=== PATIENT | female | born 1950 | race Caucasian/White ===

== ENCOUNTER → 2021-04-23 | Outpatient (CLI) | payer MEDICARE ==
[2021-04-23 12:07] LABS: INR 0.96
[2021-04-23 12:29] LABS: ALBUMIN 3.4 GM/DL (3.2-5.2); ALT/SGPT 61 U/L (12-78); BILIRUBIN,DIRECT < 0.1 MG/DL (0.0-0.2); BILIRUBIN,TOTAL 0.2 MG/DL (0.2-1.0); IRON (FE) 53 UG/DL (50-170); PERCENT SATURATION 13.8 % (13.2-45.0); TOTAL IRON BINDING CAPACITY 383 UG/DL (250-450); TOTAL PROTEIN 7.7 GM/DL (6.4-8.2)
[2021-04-23 12:50] LABS: HEPATITIS B SURFACE ANTIGEN NEGATIVE (NEGATIVE)
[2021-04-23 13:18] LABS: HEPATITIS B CORE ANTIBODY IGM NEGATIVE (NEGATIVE)
[2021-04-23 13:20] LABS: HEPATITIS A ANTIBODY IGM NEGATIVE (NEGATIVE)
[2021-04-26 16:08] LABS: ANTI DOUBLE STRAND-DNA AB <1 IU/mL (0-9); ANTI-MITOCHONDRIAL ANTIBODY <20.0 Units (0.0-20.0); ANTINUCLEAR ANTIBODIES DIRECT Positive (Negative); CERULOPLASMIN 28.9 mg/dL (19.0-39.0); CYTOPLASMIC NEUTROP AB ANCA-C <1:20 titer (Neg:<1:20); LIVER-KIDNEY MICROSOMAL ABY <20.1 Units (0.0-20.0); PERINUCLEAR AB ANCA-P <1:20 titer (Neg:<1:20); RNP ANTIBODIES <0.2 AI (0.0-0.9); SJOGREN'S ANTI SS-A 7.4 AI (0.0-0.9); SJOGREN'S ANTI SS-B <0.2 AI (0.0-0.9); SMITH ANTIBODIES <0.2 AI (0.0-0.9)
== END ==
LOC: M LAB 11:04
PROVIDERS: ATTEND Internal Medicine Gastroenterology
DX: R10.31 Right lower quadrant pain (principal); R94.5 Abnormal results of liver function studies

== ENCOUNTER → 2021-07-26 | Outpatient (CLI) | payer MEDICARE ==
[~2021-07-26] MED LIST: ATOR40TA75 PO; CALC600T61 PO; CLON-412 PO; COQ-100C5 PO; CVS2500C PO; D31000TA2 PO; EUTH50TA PO; EVEN10003 PO; FAMO20TA PO; FLAX1CAP5 PO; LETR2.5T2 PO; OMEP40CA4 PO; OSTE5TAB PO; VENL75CA2 PO; calcium mag zinc PO; selenium
== END ==
LOC: M LABSMTC 09:24
PROVIDERS: ATTEND Anesthesiology
DX: Z01.818 Encounter for other preprocedural examination (principal)

== ENCOUNTER 2021-07-31 11:11 | Day surgery (SDC) | payer MEDICARE ==
[~2021-07-31] VITALS: Ht 162.6 cm; Wt 96.8 kg
[~2021-07-31 11:11] MED LIST changes: +NS 1,000 ML IV ONE
--- OUTSIDE RECORDS SUMMARY | 2021-07-31 11:20 | CCD | Continuity of Care Document ---
Author Author Lina FUCHS [facility] Organization Unknown Address [address] [place] [address] Phone [phone] Care Team Providers Care Poultry Dresser Name Role Phone Verónica LeungM [phone] Problems Active Problems Provider Date Bursitis Christine Fuchs D[facility] Onset: 12/16/2019 Osteoarthritis Yuriy Holm Onset: 05/13/2018 Acquired deformity of limb Yuriy Holm Onset: 05/2018 Pain in limb Yuriy Holm Onset: 05/13/2018 Social History Type Date Description Comments Sex Unknown Tobacco Use Start: Unknown Never Smoked Cigarettes Tobacco Use Start: Unknown Never Smoked Cigars Tobacco Use Start: Unknown Never Smoked A Pipe Smoking Status Reviewed: 06/25/21 Never Smoked A Pipe Tobacco Use Start: Unknown Never Used Smokeless Tobacco ETOH Use Denies alcohol use Tobacco Use Start: Unknown Patient has never smoked Allergies, Adverse Reactions, Alerts Description No Known Drug Allergies Medications Active Medications SIG Qnty Indications Ordering Provide r Date Venlafaxine HCL ER 75mg Caps ER 24HR Verónica Leung Levothyroxine Sodium 88mcg Tablets Verónica Leung Omeprazole 40mg Capsules Verónica Rodriguez Clonidine HCL 0.1mg Tablets Verónica Leung Simvastatin 10mg Tablets Unknown Atorvastatin Calcium 40mg Tablets Nabil Palm, Famotidine 20mg Tablets Verónica Leung Lactulose 10GM/15ML Solution Ignacio Gonzáles MD Immunizations Description No Information Available Vital Signs Date Vital Result Comment 09/22/2020 10:22am Weight 205.00 lb Weight 92.988 kg Height 63.5 inches 5'3.50" BMI (Body Mass Index) 35.7 kg/m2 BSA (Body Surface Area) 1.97 m2 05/13/2018 9:46am Weight 200.00 lb Weight 90.720 kg Height 64 inches 5'4" BMI (Body Mass Index) 34.3 kg/m2 BSA (Body Surface Area) 1.96 m2 Results Description No Information Available Procedures Description No Information Available Medical Devices Description No Information Available Encounters Description No Information Available Assessments Description No Information Available Plan of Treatment No Information Available Functional Status Description No Information Available Mental Status Description No Information Available Referrals Description No Information Available
--- OUTSIDE RECORDS SUMMARY | 2021-07-31 11:20 | CCD | Continuity of Care Document ---
Author Author [facility] Organization Unknown Address [address] [place] [address] [place] [address] Phone [phone] Problems Description No Information Available Social History Type Date Description Comments Sex Unknown Allergies and adverse reactions Description No Information Available Medications Description No Information Available Immunizations Description No Information Available Vital Signs Description No Information Available Results Description No Information Available Procedures Description No Information Available Medical Devices Description No Information Available Encounters Description No Information Available Assessments Description No Information Available Plan of Treatment No Information Available Functional Status Description No Information Available Mental Status Description No Information Available Referrals Description No Information Available
--- OUTSIDE RECORDS SUMMARY | 2021-07-31 11:20 | CCD | Continuity of Care Document ---
Author Author Lina BOND PA Organization Unknown Address [address] [place] [id number] Phone [phone] Problems Description No Information Available Social History Type Date Description Comments Sex Unknown Allergies and adverse reactions Description No Information Available Medications Description No Information Available Immunizations Description No Information Available Vital Signs Description No Information Available Results Description No Information Available Procedures Description No Information Available Medical Devices Description No Information Available Encounters Description No Information Available Assessments Date Code Description Provider 07/25/2021 Z20.828 Contact with and ([place] spected) exposure to other viral communicable diseases AUDRA Funk Plan of Treatment No Information Available Functional Status Description No Information Available Mental Status Description No Information Available Referrals Description No Information Available
--- OUTSIDE RECORDS SUMMARY | 2021-07-31 11:20 | CCD ---
Continuity of Care Document (CCD) Created on: 07/25/2021 Lina Morejon External Reference #: [id number] : [id number] Sex: Female Author Author [facility] Organization Unknown Address [address] [place] [address] [place] [address] Phone [phone] Problems Description No Information Available Social History [...]
--- OUTSIDE RECORDS SUMMARY | 2021-07-31 11:22 | CCD ---
Author Author [facility] Organization [facility] Address Unknown Phone Unavailable Care Team Providers Care Winch Stripper Name Role Phone Laith KING SHORTHAND REPORTER-FIRE SUPPORT MAN-C Unavailable Unava ilable KOPIDLANSKYLaith SHORTHAND REPORTER-FIRE SUPPORT MAN-C Unavailable Unava ilable KOPIDLANSKYLaith APRN-FIRE SUPPORT MAN-C Unavailable Unava ilable KOPIDLANSKYLaith APRN-FIRE SUPPORT MAN-C Unavailable Unava ilable KOPIDLANSKYLaith APRN-FIRE SUPPORT MAN-C Unavailable Unava ilable KOPIDLANSKYLaith APRN-FIRE SUPPORT MAN-C Unavailable Unava ilable KOPIDLANSKYLaith APRN-FIRE SUPPORT MAN-C Unavailable Unava ilable KOPIDLANSKYLaith APRN-FIRE SUPPORT MAN-C Unavailable Unava ilable KOPIDLANSKYLaith APRN-FIRE SUPPORT MAN-C Unavailable Unava ilable KOPIDLANSKYLaith SHORTHAND REPORTER-FIRE SUPPORT MAN-C Unavailable Unava ilable KOPIDLANSKY, Laith DAVIES APRN-FIRE SUPPORT MAN-C Unavailable Unava ilable KOPIDLANSKY, Laith DAVIES APRN-FIRE SUPPORT MAN-C Unavailable Unava ilable KOPIDLANSKY, Laith DAVIES APRN-FIRE SUPPORT MAN-C Unavailable Unava ilable KOPIDLANSKY, Laith DAVIES APRN-FIRE SUPPORT MAN-C Unavailable Unava ilable KOPIDLANSKY, Laith DAVIES APRN-FIRE SUPPORT MAN-C Unavailable Unava ilable KOPIDLANSKY, Laith DAVIES APRN-FIRE SUPPORT MAN-C Unavailable Unava ilable KOPIDLANSKY, Laith DAVIES APRN-FIRE SUPPORT MAN-C Unavailable Unava ilable KOPIDLANSKY, Laith DAVIES APRN-FIRE SUPPORT MAN-C Unavailable Unava ilable KOPIDLANSKY, Laith DAVIES APRN-FIRE SUPPORT MAN-C Unavailable Unava ilable KOPIDLANSKY, Laith DAVIES APRN-FIRE SUPPORT MAN-C Unavailable Unava ilable KOPIDLANSKY, Laith DAVIES APRN-FIRE SUPPORT MAN-C Unavailable Unava ilable KOPIDLANSKY, Laith DAVIES APRN-FIRE SUPPORT MAN-C Unavailable Unava ilable KOPIDLANSKY, Laith DAVIES APRN-FIRE SUPPORT MAN-C Unavailable Unava ilable KOPIDLANSKY, Laith DAVIES APRN-FIRE SUPPORT MAN-C Unavailable Unava ilable KOPIDLANSKY, Laith DAVIES APRN-FIRE SUPPORT MAN-C Unavailable Unava ilable KOPIDLANSKY, Laith DAVIES APRN-FIRE SUPPORT MAN-C Unavailable Unava ilable KOPIDLANSKY, Laith DAVIES APRN-FIRE SUPPORT MAN-C Unavailable Unava ilable KOPIDLANSKY, Laith DAVIES APRN-FIRE SUPPORT MAN-C Unavailable Unava ilable KOPIDLANSKY, Laith DAVIES APRN-FIRE SUPPORT MAN-C Unavailable Unava ilable KOPIDLANSKY, Laith DAVIES APRN-FIRE SUPPORT MAN-C Unavailable Unava ilable KOPIDLANSKY, Laith DAVIES APRN-FIRE SUPPORT MAN-C Unavailable Unava ilable KOPIDLANSKY, Laith DAVIES APRN-FIRE SUPPORT MAN-C Unavailable Unava ilable KOPIDLANSKY, Laith DAVIES APRN-FIRE SUPPORT MAN-C Unavailable Unava ilable Adiel Leung Unavailable Unavailable Xochitl, A Verónica PA Unavailable Unavailable Xochitl, A Verónica PA Unavailable Unavailable Xochitl, A Verónica PA Unavailable Unavailable Xochitl, A Verónica PA Unavailable Unavailable Xochitl, A Verónica PA Unavailable Unavailable Xochitl, A Verónica PA Unavailable Unavailable Xochitl, A Verónica PA Unavailable Unavailable Xochitl, A Verónica PA Unavailable Unavailable Xochitl, A Verónica PA Unavailable Unavailable Xochitl, A Verónica PA Unavailable Unavailable Xochitl, A Verónica PA Unavailable Unavailable Xochitl, A Verónica PA Unavailable Unavailable Xochitl, A Verónica PA Unavailable Unavailable Xochitl, A Verónica PA Unavailable Unavailable Xochitl, A Verónica PA Unavailable Unavailable Xochitl, A Verónica PA Unavailable Unavailable Xochitl, A Verónica PA Unavailable Unavailable Xochitl, A Verónica PA Unavailable Unavailable Xochitl, A Verónica PA Unavailable Unavailable Xochitl, A Verónica PA Unavailable Unavailable Xochitl, A Verónica PA Unavailable Unavailable Xochitl, A Verónica PA Unavailable Unavailable Xochitl, A Verónica PA Unavailable Unavailable Xochitl, A Verónica PA Unavailable Unavailable Xochitl, A Verónica PA Unavailable Unavailable Xochitl, A Verónica PA Unavailable Unavailable Xochitl, A Verónica PA Unavailable Unavailable Xocihtl, A Verónica PA Unavailable Unavailable Xochitl, A Verónica PA Unavailable Unavailable Xochitl, A Verónica PA Unavailable Unavailable Xochitl, A Verónica PA Unavailable Unavailable Xochitl, A Verónica PA Unavailable Unavailable Xochitl, A Verónica PA Unavailable Unavailable Xochitl, A Verónica PA Unavailable Unavailable Xochitl, A Verónica PA Unavailable Unavailable Xochitl, A Verónica PA Unavailable Unavailable Xochitl, A Verónica PA Unavailable Unavailable Xochitl, A Verónica PA Unavailable Unavailable Xochitl, A Verónica PA Unavailable Unavailable Xochitl, A Verónica PA Unavailable Unavailable Xochitl, A Verónica PA Unavailable Unavailable Xochitl, A Verónica PA Unavailable Unavailable Xochitl, A Verónica PA Unavailable Unavailable Xochitl, A Verónica PA Unavailable Unavailable Xochitl, A Verónica PA Unavailable Unavailable Xochitl, A Verónica PA Unavailable Unavailable Xochitl, A Verónica PA Unavailable Unavailable Xochitl, A Verónica PA Unavailable Unavailable Xochitl, A Verónica PA Unavailable Unavailable Xochitl, A Verónica PA Unavailable Unavailable Xochitl, A Verónica PA Unavailable Unavailable Xochitl, A Verónica PA Unavailable Unavailable Adiel Disla MD Unavailable Unavailable Adiel Disla MD Unavailable Unavailable Adiel Disla MD Unavailable Unavailable Adiel Disla MD Unavailable Unavailable Adiel Disla MD Unavailable Unavailable Adiel Disla MD Unavailable Unavailable RajPoli marcus Yara MD Unavailable Unavailable Raja, Poli Yara MD Unavailable Unavailable Raja, Poli Yara MD Unavailable Unavailable Raja, Poli Yara MD Unavailable Unavailable Raja, Poli Yara MD Unavailable Unavailable Raja, Poli Yara MD Unavailable Unavailable Raja, Poli Yara MD Unavailable Unavailable Raja, D Yara MD Unavailable Unavailable Raja, Poli Yara MD Unavailable Unavailable Raja, D Yara MD Unavailable Unavailable Raja, Poli Yara MD Unavailable Unavailable Raja, Poli Yara MD Unavailable Unavailable Raja, Poli Yara MD Unavailable Unavailable Raja, Poli Yara MD Unavailable Unavailable Raja, Poli Yara MD Unavailable Unavailable Raja, Poli Yara MD Unavailable Unavailable Raja, Poli Yara MD Unavailable Unavailable RajaPoli Yara MD Unavailable Unavailable Raja, Poli Yara MD Unavailable Unavailable Raja, Poli Yara MD Unavailable Unavailable Raja, Poli Yara MD Unavailable Unavailable Raja, Poli Yara MD Unavailable Unavailable Raja, Poli Yara MD Unavailable Unavailable Raja, Poli Yara MD Unavailable Unavailable RajaPoli Yara MD Unavailable Unavailable RajaPoli Yara MD Unavailable Unavailable RajaPoli Yara MD Unavailable Unavailable Raja, Poli Yara MD Unavailable Unavailable Raja, Poli Yara MD Unavailable Unavailable Raja, Poli Yara MD Unavailable Unavailable RajaPoli Yara MD Unavailable Unavailable RajaPoli Yara MD Unavailable Unavailable RajaPoli Yara MD Unavailable Unavailable RajaPoli Yara MD Unavailable Unavailable Raja, Poli Yara MD Unavailable Unavailable Raja, Poli Yara MD Unavailable Unavailable Raja, Poli Yara MD Unavailable Unavailable Raja, Poli Yara MD Unavailable Unavailable Raja, Poli Yara MD Unavailable Unavailable RajaPoli Yara MD Unavailable Unavailable Raja, Poli Yara MD Unavailable Unavailable Raja, Poli Yara MD Unavailable Unavailable Raja, Poli Yara MD Unavailable Unavailable Raja, Poli Yara MD Unavailable Unavailable Raja, Poli Yara MD Unavailable Unavailable Raja, Poli Yara MD Unavailable Unavailable Raja, Poli Yara MD Unavailable Unavailable Raja, Poli Yara MD Unavailable Unavailable Raja, Poli Yara MD Unavailable Unavailable Raja, D Yara MD Unavailable Unavailable Poli Cummins MD Unavailable Unavailable Poli Cummins MD Unavailable Unavailable Poli Cummins MD Unavailable Unavailable Poli Cummins MD Unavailable Unavailable Poli Cummins MD Unavailable Unavailable Poli Cummins MD Unavailable Unavailable Poli Cummins MD Unavailable Unavailable Poli Cummins MD Unavailable Unavailable LEIBELSPERGER, SCOTT PA Unavailable Unavailable LEIBELSPERGER, SCOTT PA Unavailable Unavailable LEIBELSPERGER, SCOTT PA Unavailable Unavailable LEIBELSPERGER, SCOTT PA Unavailable Unavailable LEIBELSPERGER, SCOTT PA Unavailable Unavailable LEIBELSPERGER, SCOTT PA Unavailable Unavailable LEIBELSPERGER, SCOTT PA Unavailable Unavailable LEIBELSPERGER, SCOTT PA Unavailable Unavailable LEIBELSPERGER, SCOTT PA Unavailable Unavailable LEIBELSPERGER, SCOTT PA Unavailable Unavailable LEIBELSPERGER, SCOTT PA Unavailable Unavailable LEIBELSPERGER, SCOTT PA Unavailable Unavailable LEIBELSPERGER, SCOTT PA Unavailable Unavailable LEIBELSPERGER, SCOTT PA Unavailable Unavailable LEIBELSPERGER, SCOTT PA Unavailable Unavailable LEIBELSPERGER, SCOTT PA Unavailable Unavailable LEIBELSPERGER, SCOTT PA Unavailable Unavailable LEIBELSPERGER, SCOTT PA Unavailable Unavailable LEIBELSPERGER, SCOTT PA Unavailable Unavailable LEIBELSPERGER, SCOTT PA Unavailable Unavailable LEIBELSPERGER, SCOTT PA Unavailable Unavailable LEIBELSPERGER, SCOTT PA Unavailable Unavailable LEIBELSPERGER, SCOTT PA Unavailable Unavailable LEIBELSPERGER, SCOTT PA Unavailable Unavailable LEIBELSPERGER, SCOTT PA Unavailable Unavailable LEIBELSPERGER, SCOTT PA Unavailable Unavailable Patel Snyder MD Unavailable Unavailable Patel Snyder MD Unavailable Unavailable Patel Snyder MD Unavailable Unavailable Patel Snyder MD Unavailable Unavailable Patel Snyder MD Unavailable Unavailable Patel Snyder MD Unavailable Unavailable Patel Snyder MD Unavailable Unavailable Patel Snyder MD Unavailable Unavailable Patel Snyder MD Unavailable Unavailable Patel Snyder MD Unavailable Unavailable Patel Snyder MD Unavailable Unavailable Elin FUCHS DPM PC Unavailable Unavailable Elin FUCHS DPM PC Unavailable Unavailable Elin FUCHSA DPM PC Unavailable Unavailable JEF, J ERNST DPM PC Unavailable Unavailable JEF, J ERNST DPM PC Unavailable Unavailable JEF, J ERNST DPM PC Unavailable Unavailable JEF, J ERNST DPM PC Unavailable Unavailable JEF, J ERNST DPM PC Unavailable Unavailable JEF, J ERNST DPM PC Unavailable Unavailable JEF, J ERNST DPM PC Unavailable Unavailable JEF, J ERNST DPM PC Unavailable Unavailable JEF, J ERNST DPM PC Unavailable Unavailable JEF, J ERNST DPM PC Unavailable Unavailable JEF, J ERNST DPM PC Unavailable Unavailable JEF, J ERNST DPM PC Unavailable Unavailable JEF, J ERNST DPM PC Unavailable Unavailable JEF, J ERNST DPM PC Unavailable Unavailable JEF, J ERNST DPM PC Unavailable Unavailable JEF, J ERNST DPM PC Unavailable Unavailable JEF, J ERNST DPM PC Unavailable Unavailable JEF, J ERNST DPM PC Unavailable Unavailable JEF, J ERNST DPM PC Unavailable Unavailable JEF, J ERNTS DPM PC Unavailable Unavailable JEF, J ERNST DPM PC Unavailable Unavailable JEF, J ERNST DPM PC Unavailable Unavailable JEF, J ERNST DPM PC Unavailable Unavailable JEF, J ERNST DPM PC Unavailable Unavailable HUBERT KELLY MD Unavailable Unavailable HUBERT KELLY MD Unavailable Unavailable HUBERT KELLY MD Unavailable Unavailable HUBERT KELLY MD Unavailable Unavailable HUBERT KELLY MD Unavailable Unavailable HUBERT KELLY MD Unavailable Unavailable HUBERT KELLY MD Unavailable Unavailable HUBERT KELLY MD Unavailable Unavailable HUBERT KELLY MD Unavailable Unavailable HUBERT KELLY MD Unavailable Unavailable HUBERT KELLY MD Unavailable Unavailable HUBERT KELLY MD Unavailable Unavailable HUBERT KELLY MD Unavailable Unavailable HUBERT KELLY MD Unavailable Unavailable HUBERT KELLY MD Unavailable Unavailable HUBERT KELLY MD Unavailable Unavailable HUBERT KELLY MD Unavailable Unavailable HUBERT KELLY MD Unavailable Unavailable HUBERT KELLY MD Unavailable Unavailable HUBERT KELLY MD Unavailable Unavailable HUBERT KELLY MD Unavailable Unavailable HUBERT KELLY MD Unavailable Unavailable HUBERT KELLY MD Unavailable Unavailable HUBERT KELLY MD Unavailable Unavailable HUBERT KELLY MD Unavailable Unavailable HUBERT KELLY MD Unavailable Unavailable HUBERT KELLY MD Unavailable Unavailable HUBERT KELLY MD Unavailable Unavailable HUBERT KELLY MD Unavailable Unavailable HUBERT KELLY MD Unavailable Unavailable HUEBRT KELLY MD Unavailable Unavailable HUBERT KELLY MD Unavailable Unavailable HUBERT KELLY MD Unavailable Unavailable HUBERT KELLY MD Unavailable Unavailable HUBERT KELLY MD Unavailable Unavailable HUBERT KELLY MD Unavailable Unavailable HUBERT KELLY MD Unavailable Unavailable REINDL, HUBERT PIRES Unavailable Unavailable REINDL, HUBERT PIRES Unavailable Unavailable REINDL, HUBERT PIRES Unavailable Unavailable REINDL, HUBERT PIRES Unavailable Unavailable REINDL, HUBERT PIRES Unavailable Unavailable REINDL, HUBERT PIRES Unavailable Unavailable REINDL, HUBERT PIRES Unavailable Unavailable REINDL, HUBERT PIRES Unavailable Unavailable REINDL, HUBERT PIRES Unavailable Unavailable REINDL, HUBERT PIRES Unavailable Unavailable REINDL, HUBERT PIRES Unavailable Unavailable REINDL, HUBERT PIRES Unavailable Unavailable REINDL, HUBERT PIRES Unavailable Unavailable REINDL, HUBERT PIRES Unavailable Unavailable REINDL, HUBERT PIRES Unavailable Unavailable REINDL, HUBERT PIRES Unavailable Unavailable REINDL, HUBERT PIRES Unavailable Unavailable REINDL, HUBERT PIRES Unavailable Unavailable REINDL, HUBERT PIRES Unavailable Unavailable REINDL, HUBERT PIRES Unavailable Unavailable REINDL, HUBERT PIRES Unavailable Unavailable REINDL, HUBERT PIRES Unavailable Unavailable REINDL, HUBERT PIRES Unavailable Unavailable REINDL, HUBERT PIRES Unavailable Unavailable REINDL, HUBERT PIRES Unavailable Unavailable REINDL, HUBERT PIRES Unavailable Unavailable REINDL, HUBERT PIRES Unavailable Unavailable REINDL, HUBERT PIRES Unavailable Unavailable REINDL, HUBERT PIRES Unavailable Unavailable REINDL, HUBERT PIRES Unavailable Unavailable REINDL, HUBERT PIRES Unavailable Unavailable REINDL, HUBERT PIRES Unavailable Unavailable REINDL, HUBERT PIRES Unavailable Unavailable REINDL, HUBERT PIRES Unavailable Unavailable REINDL, HUBERT PIRES Unavailable Unavailable REINDL, HUBERT PIRES Unavailable Unavailable REINDL, HUBERT PIRES Unavailable Unavailable REINDL, HUBERT PIRES Unavailable Unavailable REINDL, HUBERT PIRES Unavailable Unavailable REINDL, HUBERT PIRES Unavailable Unavailable REINDL, HUBERT PIRES Unavailable Unavailable REINDL, HUBERT PIRES Unavailable Unavailable REINDL, HUBERT PIRES Unavailable Unavailable REINDL, HUBERT PIRES Unavailable Unavailable REINDL, HUBERT PIRES Unavailable Unavailable REINDL, HUBERT PIRES Unavailable Unavailable REINDL, HUBERT PIRES Unavailable Unavailable Everett Mc MD Unavailable Unavailable Jason Molina MD Unavailable Unavailable Jason Molina MD Unavailable Unavailable Jason Molina MD Unavailable Unavailable Jason Molina MD Unavailable Unavailable Jason Molina MD Unavailable Unavailable Jason Molina MD Unavailable Unavailable Jason Molina MD Unavailable Unavailable Jason Molina MD Unavailable Unavailable Jason Molina MD Unavailable Unavailable Jason Molina MD Unavailable Unavailable Jason Molina MD Unavailable Unavailable Jason Molina MD Unavailable Unavailable Jason Molina MD Unavailable Unavailable Jason Molina MD Unavailable Unavailable Jason Molina MD Unavailable Unavailable Jason Molina MD Unavailable Unavailable Jason Molina MD Unavailable Unavailable Jason Molina MD Unavailable Unavailable Jason Molina MD Unavailable Unavailable Jason Molina MD Unavailable Unavailable Jason Molina MD Unavailable Unavailable Jason Molina MD Unavailable Unavailable Jason Molina MD Unavailable Unavailable Jason Molina MD Unavailable Unavailable Jason Molina MD Unavailable Unavailable Jason Molina MD Unavailable Unavailable Jason Molina MD Unavailable Unavailable Jason Molina MD Unavailable Unavailable Jason Molina MD Unavailable Unavailable Jason Molina MD Unavailable Unavailable Jason Molina MD Unavailable Unavailable Jason Molina MD Unavailable Unavailable Jason Molina MD Unavailable Unavailable Jason Molina MD Unavailable Unavailable Jason Molina MD Unavailable Unavailable Jason Molina MD Unavailable Unavailable Jason Molina MD Unavailable Unavailable Jason Molina MD Unavailable Unavailable Jason Molina MD Unavailable Unavailable Jason Molina MD Unavailable Unavailable Jason Molina MD Unavailable Unavailable Jason Molina MD Unavailable Unavailable Jason Molina MD Unavailable Unavailable Jason Molina MD Unavailable Unavailable NOT, SPECIFIED Unavailable Unavailable Smart MD, Tate L Unavailable Smart MD, Tate L Unavailable Smart MD, Tate L Unavailable Smart , Tate L Unavailable Smart MD, Tate L Unavailable Smart MD, Tate L Unavailable Smart MD, Tate L Unavailable Smart MD, Tate L Unavailable Smart MD, Tate L Unavailable Smart MD, Tate L Unavailable Smart MD, Tate L Unavailable Smart MD, Tate L Unavailable Smart MD, Tate L Unavailable Smart MD, Tate L Unavailable Smart MD, Tate L Unavailable Smart MD, Tate L Unavailable Smart MD, Tate L Unavailable Smart MD, Tate L Unavailable Smart MD, Tate L Unavailable Smart MD, Tate L Unavailable Smart MD, Tate L Unavailable Smart MD, Tate L Unavailable Smart MD, Tate L Unavailable Smart MD, Tate L Unavailable Smart MD, Tate L Unavailable Smart MD, Tate L Unavailable Smart MD, Tate L Unavailable Smart MD, Tate L Unavailable Smart MD, Tate L Unavailable Smart MD, Tate L Unavailable Smart MD, Tate L Unavailable Smart MD, Tate L Unavailable Smart MD, Tate L Unavailable Smart MD, Tate L Unavailable Smart MD, Tate L Unavailable Smart MD, Tate L Unavailable Smart MD, Tate L Unavailable Smart MD, Tate L Unavailable Smart MD, Tate L Unavailable Smart MD, Tate L Unavailable Smart MD, Tate L Unavailable Smart MD, Tate L Unavailable Smart MD, Tate L Unavailable Smart MD, Tate L Unavailable Smart MD, Tate L Unavailable Smart MD, Tate L Unavailable Smart MD, Tate L Unavailable Smart MD, Tate L Unavailable Smart MD, Tate L Unavailable Smart MD, Tate L Unavailable Smart MD, Tate L Unavailable Smart MD, Tate Rico Unavailable Kelly PIRES, Tate Rico Unavailable Kelly PIRES, Tate Rico Unavailable Kelly PIRES, Tate Rico Unavailable Kelly PIRES, Tate Rico Unavailable Doctor Provided, Family PHYS No Family Unavailable U navailable Rosano, Frantz PA-C Unavailable Unavailable Rosano, Frantz PA-C Unavailable Unavailable Rosano, Frantz PA-C Unavailable Unavailable Rosano, Frantz PA-C Unavailable Unavailable Rosano, Frantz PA-C Unavailable Unavailable Rosano, Frantz PA-C Unavailable Unavailable Rosano, Frantz PA-C Unavailable Unavailable Rosano, Frantz PA-C Unavailable Unavailable Rosano, Frantz PA-C Unavailable Unavailable Rosano, Frantz PA-C Unavailable Unavailable Rosano, Frantz PA-C Unavailable Unavailable Rosano, Frantz PA-C Unavailable Unavailable Rosano, Frantz PA-C Unavailable Unavailable Rosano, Frantz PA-C Unavailable Unavailable Rosano, Frantz PA-C Unavailable Unavailable Rosano, Frantz PA-C Unavailable Unavailable Rosano, Frantz PA-C Unavailable Unavailable Rosano, Frantz PA-C Unavailable Unavailable Rosano, Frantz PA-C Unavailable Unavailable Rosano, Frantz PA-C Unavailable Unavailable Rosano, Frantz PA-C Unavailable Unavailable Rosano, Frantz PA-C Unavailable Unavailable Rosano, Frnatz PA-C Unavailable Unavailable Rosano, Frantz PA-C Unavailable Unavailable Rosano, Frantz PA-C Unavailable Unavailable Kelly PIRES, Tate Rico. Unavailable Kelly PIRES, Tate Rico. Unavailable Kelly PIRES, Tate Rico. Unavailable Xochitl, A Verónica PA Unavailable Unavailable Xochitl, A Verónica PA Unavailable Unavailable Xochitl, A Verónica PA Unavailable Unavailable Xochitl, A Verónica PA Unavailable Unavailable Xochitl, A Verónica PA Unavailable Unavailable Xochitl, A Verónica PA Unavailable Unavailable Xochitl, A Verónica PA Unavailable Unavailable Xochitl, A Verónica PA Unavailable Unavailable Xochitl, A Verónica PA Unavailable Unavailable Xochitl, A Verónica PA Unavailable Unavailable Xochitl, A Verónica PA Unavailable Unavailable Xochitl, A Verónica PA Unavailable Unavailable Xochitl, A Verónica PA Unavailable Unavailable Xochitl, A Verónica PA Unavailable Unavailable Xochitl, A Verónica PA Unavailable Unavailable Xochitl, A Verónica PA Unavailable Unavailable Xochitl, A Verónica PA Unavailable Unavailable Xochitl, A Verónica PA Unavailable Unavailable Xochitl, A Verónica PA Unavailable Unavailable Xochitl, A Verónica PA Unavailable Unavailable Xochitl, A Verónica PA Unavailable Unavailable Xochitl, A Verónica PA Unavailable Unavailable Xochitl, A Verónica PA Unavailable Unavailable Xochitl, A Verónica PA Unavailable Unavailable Xochitl, A Verónica PA Unavailable Unavailable Xochitl, A Verónica PA Unavailable Unavailable Xochitl, A Verónica PA Unavailable Unavailable Xochitl, A Verónica PA Unavailable Unavailable Xochitl, A Verónica PA Unavailable Unavailable Xochitl, A Verónica PA Unavailable Unavailable Xochitl, A Verónica PA Unavailable Unavailable Xochitl, A Verónica PA Unavailable Unavailable Xochitl, A Verónica PA Unavailable Unavailable Xochitl, A Verónica PA Unavailable Unavailable Xochitl, A Verónica PA Unavailable Unavailable Xochitl, A Verónica PA Unavailable Unavailable Xochitl, A Verónica PA Unavailable Unavailable Xochitl, A Verónica PA Unavailable Unavailable Xochitl, A Verónica PA Unavailable Unavailable Xochitl, A Verónica PA Unavailable Unavailable Xochitl, A Verónica PA Unavailable Unavailable Xochitl, A Verónica PA Unavailable Unavailable Xochitl, A Verónica PA Unavailable Unavailable Xochitl, A Verónica PA Unavailable Unavailable Xochitl, A Verónica PA Unavailable Unavailable Xochitl, A Verónica PA Unavailable Unavailable Xochitl, A Verónica PA Unavailable Unavailable Xochitl, A Verónica PA Unavailable Unavailable Xochitl, A Verónica PA Unavailable Unavailable Xochitl, A Verónica PA Unavailable Unavailable Xochitl, A Verónica PA Unavailable Unavailable Xochitl, A Verónica PA Unavailable Unavailable Xochitl, A Verónica PA Unavailable Unavailable FORNI, R TIFFANIE DPM Unavailable Unavailable FORNI, R TIFFANIE DPM Unavailable Unavailable FORNI, R TIFFANIE DPM Unavailable Unavailable FORNI, R TIFFANIE DPM Unavailable Unavailable FORNI, R TIFFANIE DPM Unavailable Unavailable FORNI, R TIFFANIE DPM Unavailable Unavailable FORNI, R TIFFANIE DPM Unavailable Unavailable FORNI, R TIFFANIE DPM Unavailable Unavailable FORNI, R TIFFANIE DPM Unavailable Unavailable FORNI, R TIFFANIE DPM Unavailable Unavailable KLIGERMAN, D WENDY DO Unavailable Unavailable KLIGERMAN, D WENDY DO Unavailable Unavailable KLIGERMAN, D WENDY DO Unavailable Unavailable KLIGERMAN, D WENDY DO Unavailable Unavailable KLIGERMAN, D WENDY DO Unavailable Unavailable KLIGERMAN, D WENDY DO Unavailable Unavailable KLIGERMAN, D WENDY DO Unavailable Unavailable KLIGERMAN, D WENDY DO Unavailable Unavailable KLIGERMAN, D WENDY DO Unavailable Unavailable KLIGERMAN, D WENDY DO Unavailable Unavailable KLIGERMAN, D WENDY DO Unavailable Unavailable KLIGERMAN, D WENDY DO Unavailable Unavailable KLIGERMAN, D WENDY DO Unavailable Unavailable KLIGERMAN, D WENDY DO Unavailable Unavailable KLIGERMAN, D WENDY DO Unavailable Unavailable KLIGERMAN, D WENDY DO Unavailable Unavailable KLIGERMAN, D WENDY DO Unavailable Unavailable KLIGERMAN, D WENDY DO Unavailable Unavailable KLIGERMAN, D WENDY DO Unavailable Unavailable KLIGERMAN, D WENDY DO Unavailable Unavailable KLIGERMAN, D WENDY DO Unavailable Unavailable KLIGERMAN, D WENDY DO Unavailable Unavailable KLIGERMAN, D WENDY DO Unavailable Unavailable KLIGERMAN, D WENDY DO Unavailable Unavailable KLIGERMAN, D WENDY DO Unavailable Unavailable KLIGERMAN, D WENDY DO Unavailable Unavailable KLIGERMAN, D WENDY DO Unavailable Unavailable KLIGERMAN, D WENDY DO Unavailable Unavailable KLIGERMAN, D WENDY DO Unavailable Unavailable KLIGERMAN, D WENDY DO Unavailable Unavailable KLIGERMAN, D WENDY DO Unavailable Unavailable KLIGERMAN, D WENDY DO Unavailable Unavailable KLIGERMAN, D WENDY DO Unavailable Unavailable KLIGERMAN, D WENDY DO Unavailable Unavailable KLIGERMAN, D WENDY DO Unavailable Unavailable KLIGERMAN, D WENDY DO Unavailable Unavailable KLIGERMAN, D WENYD DO Unavailable Unavailable KLIGERMAN, D WENDY DO Unavailable Unavailable KLIGERMAN, D WENDY DO Unavailable Unavailable KLIGERMAN, D WENDY DO Unavailable Unavailable KLIGERMAN, D WENDY DO Unavailable Unavailable KLIGERMAN, D WENDY DO Unavailable Unavailable KLIGERMAN, D WENDY DO Unavailable Unavailable KLIGERMAN, D WENDY DO Unavailable Unavailable KLIGERMAN, D WENDY DO Unavailable Unavailable KLIGERMAN, D WENDY DO Unavailable Unavailable KLIGERMAN, D WENDY DO Unavailable Unavailable KLIGERMAN, D WENDY DO Unavailable Unavailable KLIGERMAN, D WENDY DO Unavailable Unavailable KLIGERMAN, D WENDY DO Unavailable Unavailable KLIGERMAN, D WENDY DO Unavailable Unavailable KLIGERMAN, D WENDY DO Unavailable Unavailable KLIGERMAN, D WENDY DO Unavailable Unavailable KLIGERMAN, D WENDY DO Unavailable Unavailable KLIGERMAN, D WENDY DO Unavailable Unavailable KLIGERMAN, D WENDY DO Unavailable Unavailable KLIGERMAN, D WENDY DO Unavailable Unavailable KLIGERMAN, D WENDY DO Unavailable Unavailable KLIGERMAN, D WENDY DO Unavailable Unavailable KLIGERMAN, D WENDY DO Unavailable Unavailable KLIGERMAN, D WENDY DO Unavailable Unavailable KLIGERMAN, D WENDY DO Unavailable Unavailable KLIGERMAN, D WENDY DO Unavailable Unavailable KLIGERMAN, D WENDY DO Unavailable Unavailable KLIGERMAN, D WENDY DO Unavailable Unavailable KLIGERMAN, D WENDY DO Unavailable Unavailable KLIGERMAN, D WENDY DO Unavailable Unavailable KLIGERMAN, D WENDY DO Unavailable Unavailable KLIGERMAN, D WENDY DO Unavailable Unavailable KLIGERMAN, D WENDY DO Unavailable Unavailable KLIGERMAN, D WENDY DO Unavailable Unavailable KLIGERMAN, D WENDY DO Unavailable Unavailable KLIGERMAN, D WENDY DO Unavailable Unavailable KLIGERMAN, D WENDY DO Unavailable Unavailable KLIGERMAN, D WENDY DO Unavailable Unavailable KLIGERMAN, D WENDY DO Unavailable Unavailable SCHUG, J RADHA Unavailable Unavailable SCHUG, J RADHA Unavailable Unavailable SCHUG, J RADHA Unavailable Unavailable SCHUG, J RADHA Unavailable Unavailable SCHUG, J RADHA Unavailable Unavailable SCHUG, J RADHA Unavailable Unavailable SCHUG, J RADHA Unavailable Unavailable SCHUG, J RADHA Unavailable Unavailable SCHUG, J RADHA Unavailable Unavailable SCHUG, J RADHA Unavailable Unavailable SCHUG, J RADHA Unavailable Unavailable SCHUG, J RADHA Unavailable Unavailable SCHUG, J RADHA Unavailable Unavailable SCHUG, J RADHA Unavailable Unavailable SCHUG, J RADHA Unavailable Unavailable SCHUG, J RADHA Unavailable Unavailable SCHUG, J RADHA Unavailable Unavailable SCHUG, J RADHA Unavailable Unavailable SCHUG, J RADHA Unavailable Unavailable Salvatore, A Jakub PAS Unavailable Unavailable Salvatore, A Jakub PAS Unavailable Unavailable Salvatore, A Jakub PAS Unavailable Unavailable Salvatore, A Jakub PAS Unavailable Unavailable Salvatore, A Jakub PAS Unavailable Unavailable KLIGERMAN, D WENDY DO Unavailable Unavailable KLIGERMAN, D WENDY DO Unavailable Unavailable KLIGERMAN, D WENDY DO Unavailable Unavailable KLIGERMAN, D WENDY DO Unavailable Unavailable KLIGERMAN, D WENDY DO Unavailable Unavailable KLIGERMAN, D WENDY DO Unavailable Unavailable KLIGERMAN, D WENDY DO Unavailable Unavailable KLIGERMAN, D WENDY DO Unavailable Unavailable KLIGERMAN, D WENDY DO Unavailable Unavailable KLIGERMAN, D WENDY DO Unavailable Unavailable KLIGERMAN, D WENDY DO Unavailable Unavailable KLIGERMAN, D WENDY DO Unavailable Unavailable KLIGERMAN, D WENDY DO Unavailable Unavailable KLIGERMAN, D WENDY DO Unavailable Unavailable KLIGERMAN, D WENDY DO Unavailable Unavailable KLIGERMAN, D WENDY DO Unavailable Unavailable KLIGERMAN, D WENDY DO Unavailable Unavailable KLIGERMAN, D WENDY DO Unavailable Unavailable KLIGERMAN, D WENDY DO Unavailable Unavailable KLIGERMAN, D WENDY DO Unavailable Unavailable KLIGERMAN, D WENDY DO Unavailable Unavailable KLIGERMAN, D WENDY DO Unavailable Unavailable KLIGERMAN, D WENDY DO Unavailable Unavailable KLIGERMAN, D WENDY DO Unavailable Unavailable KLIGERMAN, D WENDY DO Unavailable Unavailable KLIGERMAN, D WENDY DO Unavailable Unavailable KLIGERMAN, D WENDY DO Unavailable Unavailable KLIGERMAN, D WENDY DO Unavailable Unavailable KLIGERMAN, D WENDY DO Unavailable Unavailable KLIGERMAN, D WENDY DO Unavailable Unavailable KLIGERMAN, D WENDY DO Unavailable Unavailable KLIGERMAN, D WENDY DO Unavailable Unavailable KLIGERMAN, D WENDY DO Unavailable Unavailable KLIGERMAN, D WENDY DO Unavailable Unavailable KLIGERMAN, D WENDY DO Unavailable Unavailable KLIGERMAN, D WENDY DO Unavailable Unavailable KLIGERMAN, D WENDY DO Unavailable Unavailable KLIGERMAN, D WENDY DO Unavailable Unavailable KLIGERMAN, D WENDY DO Unavailable Unavailable KLIGERMAN, D WENDY DO Unavailable Unavailable KLIGERMAN, D WENDY DO Unavailable Unavailable KLIGERMAN, D WENDY DO Unavailable Unavailable KLIGERMAN, D WENDY DO Unavailable Unavailable KLIGERMAN, D WENDY DO Unavailable Unavailable KLIGERMAN, D WENDY DO Unavailable Unavailable KLIGERMAN, D WENDY DO Unavailable Unavailable KLIGERMAN, D WENDY DO Unavailable Unavailable KLIGERMAN, D WENDY DO Unavailable Unavailable KLIGERMAN, D WENDY DO Unavailable Unavailable KLIGERMAN, D WENDY DO Unavailable Unavailable KLIGERMAN, D WENDY DO Unavailable Unavailable KLIGERMAN, D WENDY DO Unavailable Unavailable KLIGERMAN, D WENDY DO Unavailable Unavailable KLIGERMAN, D WENDY DO Unavailable Unavailable KLIGERMAN, D WENDY DO Unavailable Unavailable KLIGERMAN, D WENDY DO Unavailable Unavailable KLIGERMAN, D WEDNY DO Unavailable Unavailable KLIGERMAN, D WENDY DO Unavailable Unavailable KLIGERMAN, D WENDY DO Unavailable Unavailable KLIGERMAN, D WENDY DO Unavailable Unavailable KLIGERMAN, D WENDY DO Unavailable Unavailable KLIGERMAN, D WENDY DO Unavailable Unavailable KLIGERMAN, D WENDY DO Unavailable Unavailable KLIGERMAN, D WENDY DO Unavailable Unavailable KLIGERMAN, D WENDY DO Unavailable Unavailable KLIGERMAN, D WEDNY DO Unavailable Unavailable KLIGERMAN, D WENDY DO Unavailable Unavailable KLIGERMAN, D WENDY DO Unavailable Unavailable KLIGERMAN, D WENDY DO Unavailable Unavailable KLIGERMAN, D WENDY DO Unavailable Unavailable KLIGERMAN, D WENDY DO Unavailable Unavailable KLIGERMAN, D WENDY DO Unavailable Unavailable KLIGERMAN, D WENDY DO Unavailable Unavailable KLIGERMAN, D WENDY DO Unavailable Unavailable KLIGERMAN, D WENDY DO Unavailable Unavailable KLIGERMAN, D WENDY DO Unavailable Unavailable Poli Cummins MD Unavailable Unavailable Poli Cummins MD Unavailable Unavailable Poli Cummins MD Unavailable Unavailable Poli Cummins MD Unavailable Unavailable Poli Cummins MD Unavailable Unavailable Poli Cummins MD Unavailable Unavailable Poli Cummins MD Unavailable Unavailable Poli Cummins MD Unavailable Unavailable Poli Cummins MD Unavailable Unavailable Poli Cummins MD Unavailable Unavailable Poli Cummins MD Unavailable Unavailable Poli Cummins MD Unavailable Unavailable Poli Cummins MD Unavailable Unavailable Poli Cummins MD Unavailable Unavailable Poli Cummins MD Unavailable Unavailable Poli Cummins MD Unavailable Unavailable Poli Cummins MD Unavailable Unavailable Poli Cummins MD Unavailable Unavailable Poli Cummins MD Unavailable Unavailable Poli Cummins MD Unavailable Unavailable Poli Cummins MD Unavailable Unavailable Poli Cummins MD Unavailable Unavailable Poli Cummins MD Unavailable Unavailable Poli Cummins MD Unavailable Unavailable Poli Cummins MD Unavailable Unavailable Poli Cummins MD Unavailable Unavailable Poli Cummins MD Unavailable Unavailable Poli Cummins MD Unavailable Unavailable Poli Cummins MD Unavailable Unavailable Poli Cummins MD Unavailable Unavailable Raja, D Yara MD Unavailable Unavailable Raja, D Yara MD Unavailable Unavailable Raja, D Yara MD Unavailable Unavailable Raja, D Yara MD Unavailable Unavailable Raja, D Yara MD Unavailable Unavailable Raja, D Yara MD Unavailable Unavailable Raja, D Yara MD Unavailable Unavailable Raja, D Yara MD Unavailable Unavailable Raja, D Yara MD Unavailable Unavailable Raja, D Yara MD Unavailable Unavailable Raja, D Yara MD Unavailable Unavailable Raja, D Yara MD Unavailable Unavailable Raja, D Yara MD Unavailable Unavailable Raja, D Yara MD Unavailable Unavailable Raja, D Yara MD Unavailable Unavailable Raja, D Yara MD Unavailable Unavailable Raja, D Yara MD Unavailable Unavailable Raja, D Yara MD Unavailable Unavailable Raja, D Yara MD Unavailable Unavailable Raja, D Yara MD Unavailable Unavailable Raja, D Yara MD Unavailable Unavailable Raja, D Yara MD Unavailable Unavailable Raja, D Yara MD Unavailable Unavailable Raja, D Yara MD Unavailable Unavailable Raja, D Yara MD Unavailable Unavailable Raja, D Yara MD Unavailable Unavailable Raja, D Yara MD Unavailable Unavailable Raja, D Yara MD Unavailable Unavailable Al-Bassiony, M Howard PA Unavailable Unavailable Al-Bassiony, M Howard PA Unavailable Unavailable FORNI, R TIFFANIE DPM Unavailable Unavailable FORNI, R TIFFANIE DPM Unavailable Unavailable FORNI, R TIFFANIE DPM Unavailable Unavailable FORNI, R TIFFANIE DPM Unavailable Unavailable FORNI, R TIFFANIE DPM Unavailable Unavailable FORNI, R TIFFANIE DPM Unavailable Unavailable FORNI, R TIFFANIE DPM Unavailable Unavailable FORNI, R TIFFANIE DPM Unavailable Unavailable FORNI, R TIFFANIE DPM Unavailable Unavailable FORNI, R TIFFANIE DPM Unavailable Unavailable Re-disclosure Warning The records that you are about to access may contain information from federally-assisted alcohol or drug abuse programs. If such information is present, then the following federally mandated warning applies: This information has been disclosed to you from records protected by federal confidentiality rules (42 CFR part 2). The federal rules prohibit you from making any further disclosure of this information unless further disclosure is expressly permitted by the written consent of the person to whom it pertains or as otherwise permitted by 42 CFR part 2. A general authorization for the release of medical or other information is NOT sufficient for this purpose. The Federal rules restrict any use of the information to criminally investigate or prosecute any alcohol or drug abuse patient.The records that you are about to access may contain highly sensitive health information, the redisclosure of which is protected by Article 27-F of the [employer] Public Health law. If you continue you may have access to information: Regarding HIV / AIDS; Provided by facilities licensed or operated by the [employer] Office of Mental Health; or Provided by the [employer] Office for People With Developmental Disabilities. If such information is present, then the following [employer] mandated warning applies: This information has been disclosed to you from confidential records which are protected by state law. State law prohibits you from making any further disclosure of this information without the specific written consent of the person to whom it pertains, or as otherwise permitted by law. Any unauthorized further disclosure in violation of state law may result in a fine or long term sentence or both. A general authorization for the release of medical or other information is NOT sufficient authorization for further disc losure. Allergies and Adverse Reactions Type Description Substance Reaction Status Data Source(s ) Drug allergy bupropion bupropion Depression MO MAKES DEPRESSION WOR SE MO [facility] Food allergy No Known Food Allergies No Known Food Allergies [facility] Family History Family Member Name Family Member Gender Family Member Status Date o f Status Description Data Source(s) Unknown Condition [facility] Unknown Condition [facility] Unknown Condition [facility] Unknown Condition [facility] Unknown Condition [facility] Unknown Condition [facility] Condition [facility] Condition [facility] Condition [facility] Condition [facility] Condition [facility] Condition [facility] Condition [facility] Condition [facility] Unknown Condition [facility] Condition [facility] Condition [facility] Condition [facility] Condition [facility] Condition [facility] Condition [facility] Condition [facility] Condition [facility] Condition [facility] Condition [facility] Unknown Condition [facility] Unknown Condition [facility] Unknown Condition [facility] Unknown Condition [facility] Unknown Condition [facility] Unknown Condition [facility] Unknown Condition [facility] Unknown Condition [facility] Unknown Condition [facility] Unknown Condition [facility] Unknown Condition [facility] Unknown Condition [facility] Unknown Condition [facility] Unknown Condition [facility] Unknown Condition [facility] Unknown Condition [facility] Unknown Condition [facility] Unknown Condition [facility] Unknown Condition [facility] Unknown Condition [facility] Unknown Condition [facility] Unknown Condition [facility] Unknown Condition [facility] Unknown Condition [facility] Unknown Condition [facility] Unknown Condition [facility] Unknown Condition [facility] Unknown Condition [facility] Unknown Condition [facility] Unknown Condition [facility] Unknown Condition [facility] Unknown Condition [facility] Unknown Condition [facility] Unknown Condition [facility] Unknown Condition [facility] Unknown Condition [facility] Unknown Condition [facility] Encounters Encounter Providers Location Date Indications Data Source(s ) Outpatient Attender: Verónica Leung PAReferrer: Verónica ZHU 07/26/2021 03:36:00 PM EDT - 07/26/2021 05:09:00 PM EDT [facility] Outpatient Attender: WENDY PIPEReferrer: CHEN HENSON DO [id number] 07/21/2021 09:25:49 AM EDT [facility] Outpatient Attender: ERNST FUCHS DPM PCAttender: TIFFANIE DUMAS DPMConsultant: SPECIFIED NOT 06/25/2021 01:35:00 PM EDT - 06/25/2021 01:35:00 PM EDT [facility] CLINIC Attender: Yara HERNANDEZ.ES-SDBMANFRED 05/24/2021 12:00:00 AM EDT [facility] Outpatient Attender: HUBERT KELLY MD 05/09/2021 07:2 7:00 AM EDT W/ R94.95, K83.01 [facility] W/ R94.95, K83.01 Outpatient Attender: Verónica ZHU 05/01/2021 06 :55:00 AM EDT E03.8,E06.3,E04.0 [facility] E03.8,E06.3,E04.0 Outpatient Attender: HUBERT Barrientos/Khloe/Kristel cordero 04/23/2021 09:30:00 AM EDT [facility] Out[facility] Attender: WENDY Rogerser: CHEN HENSON DO [id number] 04/16/2021 07:29:54 PM EDT [facility] Outpatient Attender: Trisha WHIPPLEeferrer: Verónica ZHU 03/23/2021 06:29:43 AM EDT [facility] Recurring Patient Attender: Cecile WHIPPLEeferrer: Verónica ZHU 03/22/2021 09:11:05 AM EDT [facility] Outpatient Attender: WENDY Rogerser: CHEN HENSON DO [id number] 03/20/2021 12:52:00 PM EDT [facility] Outpatient Attender: WENDY HENSON DO 03/16/2021 08 :28:00 AM EDT ELEVATED LFTS,C50.412 [facility] ELEVATED LFTS,C50.412 Recurring Patient Attender: Cecile WHIPPLEeferrer: RADHA VASQUEZ 03/06/2021 12:17:10 PM EDT [facility] Outpatient Attender: WENDY Rogerser: CHEN HENSON DO [id number] 02/28/2021 02:11:09 PM EDT [facility] Outpatient Attender: Malik Disla MD 02/21/2021 10:20:00 AM EDT [facility] Outpatient Attender: WENDY HENSON DO 02/20/2021 12:40:00 PM EDT C50.412 [facility] C50.412 CLINIC Attender: Yara PAZES-SDB.EN 02/19/2021 12:00:00 AM EDT [facility] Outpatient Attender: WENDY Rogerser: CHEN HENSON DO [id number] 02/08/2021 06:25:33 PM EDT [facility] CLINIC ES-DAVID. 02/01/2021 01:03:20 PM EDT [facility] Outpatient Attender: Yara Cummins MD 02/01/2021 09:47: 00 AM EDT E03.8,E06.3,E04.0,R73.9 [facility] E03.8,E06.3,E04.0,R73.9 CLINIC Attender: Yara PAZES-SDB.EN 01/29/2021 12:00:00 AM EDT [facility] Outpatient Attender: WENDY Rogerser: CHEN HENSON DO [id number] 01/25/2021 04:23:53 PM EDT [facility] Outpatient Attender: WENDY Rogerser: CHEN HENSON DO [id number] 01/25/2021 09:17:41 AM EDT [facility] Outpatient Attender: SCTOT Worthingtoner: SCOTT VARELA 01/22/2021 07:42:00 AM EDT - 04/30/2021 10:33:00 AM EDT SP TORN MENISCUS [facility] SP TORN MENISCUS Patient discharged. Outpatient Attender: WENDY Rogerser: CHEN HENSON DO [id number] 01/20/2021 09:17:03 AM EDT [facility] Outpatient Attender: SCOTT CURTIS PAReferrer: Verónica ZHU 01/15/2021 03:31:00 PM EDT - 01/15/2021 04:20:00 PM EDT [facility] Outpatient Attender: Malik Disla MDReferrer: Verónica ZHU 01/03/2021 10:28:00 AM EDT - 01/03/2021 10:55:00 AM EDT [facility] Outpatient Attender: Malik Disla MD 12/22 10:35:00 AM EDT - 12/22/2020 05:15:00 PM EDT S83.241A/RT KNEE ARTHROSCOPY [id number] [facility] S83.241A/RT KNEE ARTHROSCOPY [id number] Patient discharged. Outpatient Attender: Malik Disla MDReferrer: Verónica ZHU 12/20/2020 02:46:00 PM EDT - 12/20/2020 03:09:00 PM EDT [facility] Outpatient Attender: Verónica ZHU 12/12/2020 05:13:00 PM EST E03.9 [facility] E03.9 Outpatient Attender: Verónica Mcdonnellerrer: Verónica ZHU 12/12/2020 10:43:00 AM EST - 12/12/2020 12:05:00 PM EST [facility] Outpatient Attender: Malik Disla MD 12/08/2020 10:25:00 AM EST Z01.818 [facility] Z01.818 Outpatient Attender: Jakub MONTELONGO [facility] 10/2020 10:00:00 AM EST [facility] ([facility] Cardiology) Outpatient Attender: Malik Disla MDReferrer: No Family Do ctor Provided 11/21/2020 01:38:00 PM EST - 11/21/2020 02:22:00 PM EST [facility] Outpatient Attender: Everett Mc MD 11/20/2020 07 :05:00 AM EST POSSIBLE TORN MENISCUS M25.569 [facility] POSSIBLE TORN MENISCUS M25.569 Outpatient Attender: Everett Mc MDReferrer: Verónica ZHU 11/17/2020 01:42:00 PM EST - 11/17/2020 02:42:00 PM EST [facility] Outpatient Attender: Everett Mc MD 11/14/2020 03:23:00 PM EST M25.569 [facility] M25.569 Outpatient Attender: Everett Mc MDReferrer: Verónica ZHU 11/14/2020 01:49:00 PM EST - 11/14/2020 03:06:00 PM EST [facility] Outpatient Attender: SCOTT ZHU 12:26:00 PM EST PAIN ORTHO [facility] PAIN ORTHO Outpatient Attender: LEYAL SALOMON 10/25/2020 11:38:00 AM EST W/ABD PAIN R10.9,R93.5 [facility] l W/ABD PAIN R10.9,R93.5 Outpatient Attender: LEYLA SALOMON 10/24/2020 05:26:00 PM EST [facility] l Outpatient Attender: LEYLA Parkinsonferrer: Verónica ZHU 10/24/2020 04:23:00 PM EST - 10/24/2020 05:02:00 PM EST [facility] Outpatient Attender: Verónica ZHU 10/13/2020 11 :28:00 AM EST HYPOTHYROIDISM, [facility] HYPOTHYROIDISM, Outpatient Attender: Verónica Leung PAReferrer: Verónica ZHU 10/04/2020 06:58:00 AM EST - 10/04/2020 07:53:00 AM EST [facility] Outpatient Attender: Frantz NAZARIOCReferrer: Verónica ZHU 10/03/2020 03:17:15 PM EST [facility] Recurring Patient Attender: Cecile Mendoza MDReferrer: RADHA VASQUEZ 09/25/2020 03:18:06 PM EST [facility] Outpatient Attender: TIFFANIE DUMAS DPonsultant: SPECIFIED N OT 09/22/2020 10:19:00 AM EST - 09/22/2020 10:19:00 AM EST [facility] Outpatient Attender: TIFFANIE DUMAS [facility] 09/22/2020 0 9:15:00 AM EST [facility] ([facility]) Outpatient Attender: WENDY Rogerser: CHEN Adiel BOBRASTA DO [id number] 09/13/2020 07:01:26 AM EST [facility] Outpatient Attender: WENDY Rogerser: CHEN HENSON DO [id number] 09/12/2020 02:45:59 PM EST [facility] Outpatient Attender: Verónica Worthingtoner: Verónica ZHU 09/12/2020 07:53:00 AM EST - 09/12/2020 08:27:00 AM EST [facility] Outpatient Attender: Verónica ZHU 08/29/2020 01:25:00 PM EST E78.2,E03.9 [facility] E78.2,E03.9 Outpatient Attender: WENDY Patel: CHEN ROJASRASTA DO [id number] 08/12/2020 01:12:32 PM EST [facility] Outpatient Attender: Radha Molina MD 08/06/2020 03:00:00 PM EST [facility] Outpatient Attender: Radha Molina MD 08/01/2020 06:11:00 PM EDT [facility] Outpatient Attender: Verónica Worthingtoner: Verónica ZHU 06/13/2020 08:58:00 AM EDT - 06/13/2020 09:24:00 AM EDT [facility] Emergency Attender: Alfie Snyder MDAttender: Anita ZHU 06/02/2020 08:48:00 PM EDT - 06/02/2020 10:47:00 PM EDT PAIN/SWELLING IN LEG/FOOT [facility] PAIN/SWELLING IN LEG/FOOT Patient discharged. Outpatient Attender: Verónica ZHU 06/01/2020 09 :00:00 AM EDT RIGHT LEFT; SWELLING PAIN [facility] RIGHT LEFT; SWELLING PAIN Outpatient Attender: Verónica Mcdonnellerrer: Verónica ZHU 06/01/2020 08:03:00 AM EDT - 06/01/2020 09:01:00 AM EDT [facility] Immunizations Vaccine Date Status Description Data Source(s) COVID-19 VACCINE Moderna 12/11/2020 12:00:00 AM EST completed [facility] Vaccine Series Complete: YESThis Data wa s Submitted to [facility] Via [employer]. COVID-19 VACCINE, MRNA-[id number], LNP-S (MODERNA)/PF 12/11/2020 1 2:00:00 AM EST completed [facility] COVID-19 VACCINE Moderna 11/13/2020 12:00:00 AM EST completed [facility] Vaccine Series Complete: NOThis Data was Submitted to [facility] [employer]. COVID-19 VACCINE, [id number], LNP-S (MODERNA)/PF 11/13/2020 1 2:00:00 AM EST completed [facility] Medications Medication Brand Name Start Date Product Form Dose Route Admi nistrative Instructions Pharmacy Instructions Status Indications Reaction Description Data Source(s) magnesium citrate 58.2 MG/ML Oral Solution Magnesium Citrate 04/23/2021 12:00:00 AM EDT active [facility] ([facility], ) POLYETHYLENE GLYCOL 3350 142 MG/ML Oral Solution [Miralax] M iralax 04/23/2021 12:00:00 AM EDT active M [facility] ([facility], ) Lactulose 667 MG/ML Oral Solution Lactulose 04/23/2021 12:00:00 AM EDT ORAL active [facility] ([facility], ) 24 HR venlafaxine 75 MG Extended Release Oral Capsule Venlaf axine Venlafaxine 02/28/2021 07:58:18 AM EDT 0 active [facility] 24 HR venlafaxine 75 MG Extended Release Oral Capsule Venlaf axine Venlafaxine 02/19/2021 12:39:27 PM EDT 75 MG completed [facility] Omeprazole 40 MG Delayed Release Oral Capsule Omeprazole 02/19/2021 06:02:34 AM EDT 40 MG active [facility] Levothyroxine Sodium 0.05 MG Oral Tablet levothyroxine (SYNTHROID, LEVOTHROID) 50 MCG tablet levothyroxine (SYNTHROID, LEVOTHROID) 50 MCG tablet 12:00:00 AM EDT 50 ug Oral active Take 1 tablet (50 mcg total) by mouth daily [facility] letrozole 2.5 MG Oral Tablet Letrozole (Femara) 2.5 mg tablet Letrozole (Femara) 2.5 mg tablet 01/29/2021 07:09:35 AM EDT 2.5 MG active [facility] Methylprednisolone Methylprednisolone 01/15/2021 04:17:04 PM EDT 4 MG active [facility] Methylprednisolone Methylprednisolone 01/15/2021 04:17:04 PM EDT 4 MG completed [facility] Famotidine 20 MG Oral Tablet Famotidine 12/26/2020 06:38:20 AM EDT 0 active [facility] Famotidine 20 MG Oral Tablet Famotidine 12/26/2020 06:38:20 AM EDT 0 active [facility] Famotidine 20 MG Oral Tablet Famotidine 12/26/2020 06:38:20 AM EDT 0 active [facility] Acetaminophen 325 MG / Oxycodone Hydroch loride 5 MG Oral Tablet Oxycodone-Acetaminophen Oxycodone-Acetaminophen 12/22/2020 03:53:27 PM EDT 1 TAB active [facility] Acetaminophen 325 MG / Oxycodone Hydroch loride 5 MG Oral Tablet Oxycodone-Acetaminophen Oxycodone-Acetaminophen 12/22/2020 03:53:27 PM EDT 1 TAB completed [facility] Acetaminophen 325 MG / Oxycodone Hydroch loride 5 MG Oral Tablet Oxycodone-Acetaminophen Oxycodone-Acetaminophen 12/22/2020 03:53:27 PM EDT 1 TAB active [facility] Acetaminophen 325 MG / Oxycodone Hydroch loride 5 MG Oral Tablet Oxycodone-Acetaminophen Oxycodone-Acetaminophen 12/22/2020 03:53:27 PM EDT 1 TAB completed [facility] Vitamin B 12 1 MG Oral Tablet Cyanocobalamin (Vitamin B-12) Cyanocobalamin (Vitamin B-12) 12/20/2020 09:16:17 AM EDT 1000 MCG activ e [facility] Vitamin B 12 1 MG Oral Tablet Cyanocobalamin (Vitamin B-12) Cyanocobalamin (Vitamin B-12) 12/20/2020 09:16:17 AM EDT 1000 MCG activ e [facility] Vitamin B 12 1 MG Oral Tablet Cyanocobalamin (Vitamin B-12) Cyanocobalamin (Vitamin B-12) 12/20/2020 09:16:17 AM EDT 1000 MCG activ e [facility] coenzyme Q10 200 MG Oral Capsule Coenzyme Q10 (Co Q-10 ) 200 mg Capsule Coenzyme Q10 (Co Q-10) 200 mg Capsule 12/20/2020 09:16:17 AM EDT 200 MG [facility] coenzyme Q10 200 MG Oral Capsule Coenzyme Q10 (Co Q-10 ) 200 mg Capsule Coenzyme Q10 (Co Q-10) 200 mg Capsule 12/20/2020 09:16:17 AM EDT 200 MG [facility] Vitamin B 12 1 MG Oral Tablet Cyanocobalamin (Vitamin B-12) Cyanocobalamin (Vitamin B-12) 12/20/2020 09:16:17 AM EDT 1000 MCG activ [facility] Vitamin B 12 1 MG Oral Tablet Cyanocobalamin (Vitamin B-12) Cyanocobalamin (Vitamin B-12) 12/20/2020 09:16:17 AM EDT 1000 MCG activ [facility] coenzyme Q10 200 MG Oral Capsule Coenzyme Q10 (Co Q-10 ) 200 mg Capsule Coenzyme Q10 (Co Q-10) 200 mg Capsule 12/20/2020 09:16:17 AM EDT 200 MG [facility] coenzyme Q10 200 MG Oral Capsule Coenzyme Q10 (Co Q-10 ) 200 mg Capsule Coenzyme Q10 (Co Q-10) 200 mg Capsule 12/20/2020 09:16:17 AM EDT 200 MG [facility] coenzyme Q10 200 MG Oral Capsule Coenzyme Q10 (Co Q-10 ) 200 mg Capsule Coenzyme Q10 (Co Q-10) 200 mg Capsule 12/20/2020 09:16:17 AM EDT 200 MG active [facility] Levothyroxine Sodium 0.05 MG Oral Tablet Levothyroxine (Synthroid) 50 mcg tablet Levothyroxine (Synthroid) 50 mcg tablet 12/20/2020 09:15:34 AM EDT 50 MCG active [facility] Omeprazole 40 MG Delayed Release Oral Capsule Omeprazole 12/20/2020 09:15:34 AM EDT 40 MG active [facility] Omeprazole 40 MG Delayed Release Oral Capsule Omeprazole 12/20/2020 09:15:34 AM EDT 40 MG active [facility] Famotidine 20 MG Oral Tablet Famotidine 12/20/2020 09:15:34 AM EDT 20 MG active [facility] Clonidine Hydrochloride 0.1 MG Oral Tablet Clonidine Hcl Patrica nidine Hcl 12/20/2020 09:15:34 AM EDT 0 active [facility] Omeprazole 40 MG Delayed Release Oral Capsule Omeprazole 12/20/2020 09:15:34 AM EDT 40 MG completed [facility] Clonidine Hydrochloride 0.1 MG Oral Tablet Clonidine Hcl Patrica nidine Hcl 12/20/2020 09:15:34 AM EDT 0 active [facility] Clonidine Hydrochloride 0.1 MG Oral Tablet Clonidine Hcl Patrica nidine Hcl 12/20/2020 09:15:34 AM EDT 0 active [facility] Famotidine 20 MG Oral Tablet Famotidine 12/20/2020 09:15:34 AM EDT 20 MG completed [facility] Clonidine Hydrochloride 0.1 MG Oral Tablet Clonidine Hcl Patrica nidine Hcl 12/20/2020 09:15:34 AM EDT 0 active [facility] Omeprazole 40 MG Delayed Release Oral Capsule Omeprazole 12/20/2020 09:15:34 AM EDT 40 MG active [facility] Levothyroxine Sodium 0.05 MG Oral Tablet Levothyroxine (Synthroid) 50 mcg tablet Levothyroxine (Synthroid) 50 mcg tablet 12/20/2020 09:15:34 AM EDT 50 MCG active [facility] Famotidine 20 MG Oral Tablet Famotidine 12/20/2020 09:15:34 AM EDT 20 MG completed [facility] Famotidine 20 MG Oral Tablet Famotidine 12/20/2020 09:15:34 AM EDT 20 MG completed [facility] Levothyroxine Sodium 0.05 MG Oral Tablet Levothyroxine (Synthroid) 50 mcg tablet Levothyroxine (Synthroid) 50 mcg tablet 12/20/2020 09:15:34 AM EDT 50 MCG active [facility] Famotidine 20 MG Oral Tablet Famotidine 12/20/2020 09:15:34 AM EDT 20 MG active [facility] Levothyroxine Sodium 0.05 MG Oral Tablet Levothyroxine (Synthroid) 50 mcg tablet Levothyroxine (Synthroid) 50 mcg tablet 12/20/2020 09:15:34 AM EDT 50 MCG active [facility] Omeprazole 40 MG Delayed Release Oral Capsule Omeprazole 12/20/2020 09:15:34 AM EDT 40 MG active [facility] Levothyroxine Sodium 0.05 MG Oral Tablet Levothyroxine (Synthroid) 50 mcg tablet Levothyroxine (Synthroid) 50 mcg tablet 12/20/2020 09:15:34 AM EDT 50 MCG active [facility] Clonidine Hydrochloride 0.1 MG Oral Tablet Clonidine Hcl Patrica nidine Hcl 12/20/2020 09:15:34 AM EDT 0 active [facility] atorvastatin 40 MG Oral Tablet Atorvastatin Atorvastatin 12/12/2020 11:32:23 AM EST 40 MG active [facility] atorvastatin 40 MG Oral Tablet Atorvastatin Atorvastatin 12/12/2020 11:32:23 AM EST 40 MG active [facility] atorvastatin 40 MG Oral Tablet Atorvastatin Atorvastatin 12/12/2020 11:32:23 AM EST 40 MG active [facility] atorvastatin 40 MG Oral Tablet Atorvastatin Atorvastatin 12/12/2020 11:32:23 AM EST 40 MG active [facility] atorvastatin 40 MG Oral Tablet Atorvastatin Atorvastatin 12/12/2020 11:32:23 AM EST 40 MG active [facility] atorvastatin 40 MG Oral Tablet Atorvastatin Atorvastatin 12/12/2020 11:32:23 AM EST 40 MG active [facility] Alprazolam 0.25 MG Oral Tablet Alprazolam 12/11/2020 08:37:30 AM EST 0.25 MG active [facility] Alprazolam 0.25 MG Oral Tablet Alprazolam 12/11/2020 08:37:30 AM EST 0.25 MG active [facility] Alprazolam 0.25 MG Oral Tablet Alprazolam 12/11/2020 08:37:30 AM EST 0.25 MG active [facility] Alprazolam 0.25 MG Oral Tablet Alprazolam 12/11/2020 08:37:30 AM EST 0.25 MG active [facility] Alprazolam 0.25 MG Oral Tablet Alprazolam 12/11/2020 08:37:30 AM EST 0.25 MG active [facility] Alprazolam 0.25 MG Oral Tablet Alprazolam 12/11/2020 08:37:30 AM EST 0.25 MG active [facility] atorvastatin 40 MG Oral Tablet Atorvastatin Calcium 12/04/2020 1 2:00:00 AM EST ORAL active [facility] ( [facility]) Simvastatin 10 MG Oral Tablet Simvastatin 10/25/2020 07:06:47 AM EST 10 MG active [facility] Simvastatin 10 MG Oral Tablet Simvastatin 10/25/2020 07:06:47 AM EST 10 MG completed [facility] Simvastatin 10 MG Oral Tablet Simvastatin 10/25/2020 07:06:47 AM EST 10 MG completed [facility] Simvastatin 10 MG Oral Tablet Simvastatin 10/25/2020 07:06:47 AM EST 10 MG active [facility] Simvastatin 10 MG Oral Tablet Simvastatin 10/25/2020 07:06:47 AM EST 10 MG active [facility] Simvastatin 10 MG Oral Tablet Simvastatin 10/25/2020 07:06:47 AM EST 10 MG completed [facility] Simvastatin 10 MG Oral Tablet Simvastatin 10/25/2020 07:06:47 AM EST 10 MG completed [facility] Simvastatin 10 MG Oral Tablet Simvastatin 10/25/2020 07:06:47 AM EST 10 MG completed [facility] Simvastatin 10 MG Oral Tablet Simvastatin 10/25/2020 07:06:47 AM EST 10 MG completed [facility] Amoxicillin 875 MG / Clavulanate 125 MG Oral Tablet Am oxicillin-Pot Clavulanate Amoxicillin-Pot Clavulanate 10/24/2020 05:04:33 PM EST 1 TAB completed [facility] Amoxicillin 875 MG / Clavulanate 125 MG Oral Tablet Am oxicillin-Pot Clavulanate Amoxicillin-Pot Clavulanate 10/24/2020 05:04:33 PM EST 1 TAB completed [facility] Amoxicillin 875 MG / Clavulanate 125 MG Oral Tablet Am oxicillin-Pot Clavulanate Amoxicillin-Pot Clavulanate 10/24/2020 05:04:33 PM EST 1 TAB completed [facility] Amoxicillin 875 MG / Clavulanate 125 MG Oral Tablet Am oxicillin-Pot Clavulanate Amoxicillin-Pot Clavulanate 10/24/2020 05:04:33 PM EST 1 TAB completed [facility] Amoxicillin 875 MG / Clavulanate 125 MG Oral Tablet Am oxicillin-Pot Clavulanate Amoxicillin-Pot Clavulanate 10/24/2020 05:04:33 PM EST 1 TAB completed [facility] Amoxicillin 875 MG / Clavulanate 125 MG Oral Tablet Am oxicillin-Pot Clavulanate Amoxicillin-Pot Clavulanate 10/24/2020 05:04:33 PM EST 1 TAB completed [facility] Amoxicillin 875 MG / Clavulanate 125 MG Oral Tablet Am oxicillin-Pot Clavulanate Amoxicillin-Pot Clavulanate 10/24/2020 05:04:33 PM EST 1 TAB completed [facility] Amoxicillin 875 MG / Clavulanate 125 MG Oral Tablet Am oxicillin-Pot Clavulanate Amoxicillin-Pot Clavulanate 10/24/2020 05:04:33 PM EST 1 TAB completed [facility] Amoxicillin 875 MG / Clavulanate 125 MG Oral Tablet Am oxicillin-Pot Clavulanate Amoxicillin-Pot Clavulanate 10/24/2020 05:04:33 PM EST 1 TAB completed [facility] Metronidazole 500 MG Oral Tablet Metronidazole 10/24/2020 05:03:18 PM EST 500 MG completed [facility] Metronidazole 500 MG Oral Tablet Metronidazole 10/24/2020 05:03:18 PM EST 500 MG completed [facility] Metronidazole 500 MG Oral Tablet Metronidazole 10/24/2020 05:03:18 PM EST 500 MG completed [facility] Metronidazole 500 MG Oral Tablet Metronidazole 10/24/2020 05:03:18 PM EST 500 MG completed [facility] Metronidazole 500 MG Oral Tablet Metronidazole 10/24/2020 05:03:18 PM EST 500 MG completed [facility] Metronidazole 500 MG Oral Tablet Metronidazole 10/24/2020 05:03:18 PM EST 500 MG completed [facility] Metronidazole 500 MG Oral Tablet Metronidazole 10/24/2020 05:03:18 PM EST 500 MG completed [facility] Metronidazole 500 MG Oral Tablet Metronidazole 10/24/2020 05:03:18 PM EST 500 MG completed [facility] Metronidazole 500 MG Oral Tablet Metronidazole 10/24/2020 05:03:18 PM EST 500 MG completed [facility] Clonidine Hydrochloride 0.1 MG Oral Tablet Clonidine Hcl Patrica nidine Hcl 10/16/2020 07:10:00 AM EST 0 active [facility] Clonidine Hydrochloride 0.1 MG Oral Tablet Clonidine Hcl Patrica nidine Hcl 10/16/2020 07:10:00 AM EST 0 completed [facility] Clonidine Hydrochloride 0.1 MG Oral Tablet Clonidine Hcl Patrica nidine Hcl 10/16/2020 07:10:00 AM EST 0 active [facility] Clonidine Hydrochloride 0.1 MG Oral Tablet Clonidine Hcl Patrica nidine Hcl 10/16/2020 07:10:00 AM EST 0 completed [facility] Clonidine Hydrochloride 0.1 MG Oral Tablet Clonidine Hcl Patrica nidine Hcl 10/16/2020 07:10:00 AM EST 0 active [facility] Clonidine Hydrochloride 0.1 MG Oral Tablet Clonidine Hcl Patrica nidine Hcl 10/16/2020 07:10:00 AM EST 0 completed [facility] Clonidine Hydrochloride 0.1 MG Oral Tablet Clonidine Hcl Patrica nidine Hcl 10/16/2020 07:10:00 AM EST 0 active [facility] Clonidine Hydrochloride 0.1 MG Oral Tablet Clonidine Hcl Patrica nidine Hcl 10/16/2020 07:10:00 AM EST 0 completed [facility] Clonidine Hydrochloride 0.1 MG Oral Tablet Clonidine Hcl Patrica nidine Hcl 10/16/2020 07:10:00 AM EST 0 completed [facility] Clonidine Hydrochloride 0.1 MG Oral Tablet Clonidine Hcl Patrica nidine Hcl 10/16/2020 07:10:00 AM EST 0 active [facility] Levothyroxine Sodium 0.075 MG Oral Table t Levothyroxine (Synthroid) 75 mcg tablet Levothyroxine (Synthroid) 75 mcg tablet 08/30/2020 05:32:[address] 75 MCG active [facility] Levothyroxine Sodium 0.075 MG Oral Table t Levothyroxine (Synthroid) 75 mcg tablet Levothyroxine (Synthroid) 75 mcg tablet 08/30/2020 05:32:[address] 75 MCG active [facility] Levothyroxine Sodium 0.075 MG Oral Table t Levothyroxine (Synthroid) 75 mcg tablet Levothyroxine (Synthroid) 75 mcg tablet 08/30/2020 05:32:[address] 75 MCG active [facility] Levothyroxine Sodium 0.075 MG Oral Table t Levothyroxine (Synthroid) 75 mcg tablet Levothyroxine (Synthroid) 75 mcg tablet 08/30/2020 05:32:[address] 75 MCG active [facility] Levothyroxine Sodium 0.075 MG Oral Table t Levothyroxine (Synthroid) 75 mcg tablet Levothyroxine (Synthroid) 75 mcg tablet 08/30/2020 05:32:[address] 75 MCG active [facility] Levothyroxine Sodium 0.075 MG Oral Table t Levothyroxine (Synthroid) 75 mcg tablet Levothyroxine (Synthroid) 75 mcg tablet 08/30/2020 05:32:[address] 75 MCG [facility] Levothyroxine Sodium 0.075 MG Oral Table t Levothyroxine (Synthroid) 75 mcg tablet Levothyroxine (Synthroid) 75 mcg tablet 08/30/2020 05:32:[address] 75 MCG active [facility] Levothyroxine Sodium 0.075 MG Oral Table t Levothyroxine (Synthroid) 75 mcg tablet Levothyroxine (Synthroid) 75 mcg tablet 08/30/2020 05:32:[address] 75 MCG [facility] Levothyroxine Sodium 0.075 MG Oral Table t Levothyroxine (Synthroid) 75 mcg tablet Levothyroxine (Synthroid) 75 mcg tablet 08/30/2020 05:32:[address] 75 MCG active [facility] Levothyroxine Sodium 0.075 MG Oral Table t Levothyroxine (Synthroid) 75 mcg tablet Levothyroxine (Synthroid) 75 mcg tablet 08/30/2020 05:32:[address] 75 MCG active [facility] Levothyroxine Sodium 0.075 MG Oral Table t Levothyroxine (Synthroid) 75 mcg tablet Levothyroxine (Synthroid) 75 mcg tablet 08/30/2020 05:32:[address] 75 MCG active [facility] Levothyroxine Sodium 0.075 MG Oral Table t Levothyroxine (Synthroid) 75 mcg tablet Levothyroxine (Synthroid) 75 mcg tablet 08/30/2020 05:32:[address] 75 MCG active [facility] Levothyroxine Sodium 0.05 MG Oral Tablet Levothyroxine (Synthroid) 50 mcg tablet Levothyroxine (Synthroid) 50 mcg tablet 08/30/2020 05:29:38 PM EST 50 MCG active [facility] Levothyroxine Sodium 0.05 MG Oral Tablet Levothyroxine (Synthroid) 50 mcg tablet Levothyroxine (Synthroid) 50 mcg tablet 08/30/2020 05:29:38 PM EST 50 MCG active [facility] Levothyroxine Sodium 0.05 MG Oral Tablet Levothyroxine (Synthroid) 50 mcg tablet Levothyroxine (Synthroid) 50 mcg tablet 08/30/2020 05:29:38 PM EST 50 MCG completed [facility] Levothyroxine Sodium 0.05 MG Oral Tablet Levothyroxine (Synthroid) 50 mcg tablet Levothyroxine (Synthroid) 50 mcg tablet 08/30/2020 05:29:38 PM EST 50 MCG active [facility] Levothyroxine Sodium 0.05 MG Oral Tablet Levothyroxine (Synthroid) 50 mcg tablet Levothyroxine (Synthroid) 50 mcg tablet 08/30/2020 05:29:38 PM EST 50 MCG active [facility] Levothyroxine Sodium 0.05 MG Oral Tablet Levothyroxine (Synthroid) 50 mcg tablet Levothyroxine (Synthroid) 50 mcg tablet 08/30/2020 05:29:38 PM EST 50 MCG completed [facility] Levothyroxine Sodium 0.05 MG Oral Tablet Levothyroxine (Synthroid) 50 mcg tablet Levothyroxine (Synthroid) 50 mcg tablet 08/30/2020 05:29:38 PM EST 50 MCG active [facility] Levothyroxine Sodium 0.05 MG Oral Tablet Levothyroxine (Synthroid) 50 mcg tablet Levothyroxine (Synthroid) 50 mcg tablet 08/30/2020 05:29:38 PM EST 50 MCG completed [facility] Levothyroxine Sodium 0.05 MG Oral Tablet Levothyroxine (Synthroid) 50 mcg tablet Levothyroxine (Synthroid) 50 mcg tablet 08/30/2020 05:29:38 PM EST 50 MCG completed [facility] Levothyroxine Sodium 0.05 MG Oral Tablet Levothyroxine (Synthroid) 50 mcg tablet Levothyroxine (Synthroid) 50 mcg tablet 08/30/2020 05:29:38 PM EST 50 MCG active [facility] Levothyroxine Sodium 0.05 MG Oral Tablet Levothyroxine (Synthroid) 50 mcg tablet Levothyroxine (Synthroid) 50 mcg tablet 08/30/2020 05:29:38 PM EST 50 MCG active [facility] Levothyroxine Sodium 0.05 MG Oral Tablet Levothyroxine (Synthroid) 50 mcg tablet Levothyroxine (Synthroid) 50 mcg tablet 08/30/2020 05:29:38 PM EST 50 MCG completed [facility] Famotidine 20 MG Oral Tablet Famotidine 06/19/2020 07:06:35 AM EDT 20 MG active [facility] Famotidine 20 MG Oral Tablet Famotidine 06/19/2020 07:06:35 AM EDT 20 MG completed [facility] Famotidine 20 MG Oral Tablet Famotidine 06/19/2020 07:06:35 AM EDT 20 MG active [facility] Famotidine 20 MG Oral Tablet Famotidine 06/19/2020 07:06:35 AM EDT 20 MG active [facility] Famotidine 20 MG Oral Tablet Famotidine 06/19/2020 07:06:35 AM EDT 20 MG active [facility] Famotidine 20 MG Oral Tablet Famotidine 06/19/2020 07:06:35 AM EDT 20 MG completed [facility] Famotidine 20 MG Oral Tablet Famotidine 06/19/2020 07:06:35 AM EDT 20 MG active [facility] Famotidine 20 MG Oral Tablet Famotidine 06/19/2020 07:06:35 AM EDT 20 MG completed [facility] Famotidine 20 MG Oral Tablet Famotidine 06/19/2020 07:06:35 AM EDT 20 MG active [facility] Famotidine 20 MG Oral Tablet Famotidine 06/19/2020 07:06:35 AM EDT 20 MG completed [facility] Famotidine 20 MG Oral Tablet Famotidine 06/19/2020 07:06:35 AM EDT 20 MG completed [facility] Famotidine 20 MG Oral Tablet Famotidine 06/19/2020 07:06:35 AM EDT 20 MG active [facility] Lactobacillus Combination No.4 06/02/2020 10:31:30 PM EDT 3000 MMU CELLS completed [facility] Lactobacillus Combination No.4 06/02/2020 10:31:30 PM EDT 3000 MMU CELLS active [facility] Lactobacillus Combination No.4 06/02/2020 10:31:30 PM EDT 3000 MMU CELLS active [facility] Lactobacillus Combination No.4 06/02/2020 10:31:30 PM EDT 3000 MMU CELLS active [facility] Lactobacillus Combination No.4 06/02/2020 10:31:30 PM EDT 3000 MMU CELLS completed [facility] Lactobacillus Combination No.4 06/02/2020 10:31:30 PM EDT 3000 MMU CELLS active [facility] Lactobacillus Combination No.4 06/02/2020 10:31:30 PM EDT 3000 MMU CELLS completed [facility] Lactobacillus Combination No.4 06/02/2020 10:31:30 PM EDT 3000 MMU CELLS completed [facility] Lactobacillus Combination No.4 06/02/2020 10:31:30 PM EDT 3000 MMU CELLS active [facility] Lactobacillus Combination No.4 06/02/2020 10:31:30 PM EDT 3000 MMU CELLS active [facility] Lactobacillus Combination No.4 06/02/2020 10:31:30 PM EDT 3000 MMU CELLS completed [facility] Lactobacillus Combination No.4 06/02/2020 10:31:30 PM EDT 3000 MMU CELLS completed [facility] Lactobacillus Combination No.4 06/02/2020 10:31:30 PM EDT 3000 MMU CELLS active [facility] Lactobacillus Combination No.4 06/02/2020 10:31:30 PM EDT 3000 MMU CELLS active [facility] Cephalexin 500 MG Oral Capsule [Keflex] Cephalexin (Ke flex) 500 mg capsule Cephalexin (Keflex) 500 mg capsule 06/02/2020 10:31:03 PM EDT 500 MG completed [facility] Cephalexin 500 MG Oral Capsule [Keflex] Cephalexin (Ke flex) 500 mg capsule Cephalexin (Keflex) 500 mg capsule 06/02/2020 10:31:03 PM EDT 500 MG completed [facility] Cephalexin 500 MG Oral Capsule [Keflex] Cephalexin (Ke flex) 500 mg capsule Cephalexin (Keflex) 500 mg capsule 06/02/2020 10:31:03 PM EDT 500 MG active [facility] Cephalexin 500 MG Oral Capsule [Keflex] Cephalexin (Ke flex) 500 mg capsule Cephalexin (Keflex) 500 mg capsule 06/02/2020 10:31:03 PM EDT 500 MG completed [facility] Cephalexin 500 MG Oral Capsule [Keflex] Cephalexin (Ke flex) 500 mg capsule Cephalexin (Keflex) 500 mg capsule 06/02/2020 10:31:03 PM EDT 500 MG completed [facility] Cephalexin 500 MG Oral Capsule [Keflex] Cephalexin (Ke flex) 500 mg capsule Cephalexin (Keflex) 500 mg capsule 06/02/2020 10:31:03 PM EDT 500 MG completed [facility] Cephalexin 500 MG Oral Capsule [Keflex] Cephalexin (Ke flex) 500 mg capsule Cephalexin (Keflex) 500 mg capsule 06/02/2020 10:31:03 PM EDT 500 MG completed [facility] Cephalexin 500 MG Oral Capsule [Keflex] Cephalexin (Ke flex) 500 mg capsule Cephalexin (Keflex) 500 mg capsule 06/02/2020 10:31:03 PM EDT 500 MG active [facility] Cephalexin 500 MG Oral Capsule [Keflex] Cephalexin (Ke flex) 500 mg capsule Cephalexin (Keflex) 500 mg capsule 06/02/2020 10:31:03 PM EDT 500 MG completed [facility] Cephalexin 500 MG Oral Capsule [Keflex] Cephalexin (Ke flex) 500 mg capsule Cephalexin (Keflex) 500 mg capsule 06/02/2020 10:31:03 PM EDT 500 MG completed [facility] Cephalexin 500 MG Oral Capsule [Keflex] Cephalexin (Ke flex) 500 mg capsule Cephalexin (Keflex) 500 mg capsule 06/02/2020 10:31:03 PM EDT 500 MG completed [facility] Cephalexin 500 MG Oral Capsule [Keflex] Cephalexin (Ke flex) 500 mg capsule Cephalexin (Keflex) 500 mg capsule 06/02/2020 10:31:03 PM EDT 500 MG active [facility] Cephalexin 500 MG Oral Capsule [Keflex] Cephalexin (Ke flex) 500 mg capsule Cephalexin (Keflex) 500 mg capsule 06/02/2020 10:31:03 PM EDT 500 MG completed [facility] Cephalexin 500 MG Oral Capsule [Keflex] Cephalexin (Ke flex) 500 mg capsule Cephalexin (Keflex) 500 mg capsule 06/02/2020 10:31:03 PM EDT 500 MG completed [facility] Sulfamethoxazole 800 MG / Trimethoprim 1 60 MG Oral Tablet Sulfamethoxazole- Trimethoprim (Bactrim Ds) 800-160 mg tablet Sulfamethoxazole-Trimethoprim (Bactrim Ds) 800-160 mg tablet 06/02/2020 10:28:15 PM EDT 1 TAB completed [facility] Sulfamethoxazole 800 MG / Trimethoprim 1 60 MG Oral Tablet Sulfamethoxazole- Trimethoprim (Bactrim Ds) 800-160 mg tablet Sulfamethoxazole-Trimethoprim (Bactrim Ds) 800-160 mg tablet 06/02/2020 10:28:15 PM EDT 1 TAB completed [facility] Sulfamethoxazole 800 MG / Trimethoprim 1 60 MG Oral Tablet Sulfamethoxazole- Trimethoprim (Bactrim Ds) 800-160 mg tablet Sulfamethoxazole-Trimethoprim (Bactrim Ds) 800-160 mg tablet 06/02/2020 10:28:15 PM EDT 1 TAB completed [facility] Sulfamethoxazole 800 MG / Trimethoprim 1 60 MG Oral Tablet Sulfamethoxazole- Trimethoprim (Bactrim Ds) 800-160 mg tablet Sulfamethoxazole-Trimethoprim (Bactrim Ds) 800-160 mg tablet 06/02/2020 10:28:15 PM EDT 1 TAB completed [facility] Sulfamethoxazole 800 MG / Trimethoprim 1 60 MG Oral Tablet Sulfamethoxazole- Trimethoprim (Bactrim Ds) 800-160 mg tablet Sulfamethoxazole-Trimethoprim (Bactrim Ds) 800-160 mg tablet 06/02/2020 10:28:15 PM EDT 1 TAB completed [facility] Sulfamethoxazole 800 MG / Trimethoprim 1 60 MG Oral Tablet Sulfamethoxazole- Trimethoprim (Bactrim Ds) 800-160 mg tablet Sulfamethoxazole-Trimethoprim (Bactrim Ds) 800-160 mg tablet 06/02/2020 10:28:15 PM EDT 1 TAB active [facility] Sulfamethoxazole 800 MG / Trimethoprim 1 60 MG Oral Tablet Sulfamethoxazole- Trimethoprim (Bactrim Ds) 800-160 mg tablet Sulfamethoxazole-Trimethoprim (Bactrim Ds) 800-160 mg tablet 06/02/2020 10:28:15 PM EDT 1 TAB completed [facility] Sulfamethoxazole 800 MG / Trimethoprim 1 60 MG Oral Tablet Sulfamethoxazole- Trimethoprim (Bactrim Ds) 800-160 mg tablet Sulfamethoxazole-Trimethoprim (Bactrim Ds) 800-160 mg tablet 06/02/2020 10:28:15 PM EDT 1 TAB completed [facility] Sulfamethoxazole 800 MG / Trimethoprim 1 60 MG Oral Tablet Sulfamethoxazole- Trimethoprim (Bactrim Ds) 800-160 mg tablet Sulfamethoxazole-Trimethoprim (Bactrim Ds) 800-160 mg tablet 06/02/2020 10:28:15 PM EDT 1 TAB completed [facility] Sulfamethoxazole 800 MG / Trimethoprim 1 60 MG Oral Tablet Sulfamethoxazole- Trimethoprim (Bactrim Ds) 800-160 mg tablet Sulfamethoxazole-Trimethoprim (Bactrim Ds) 800-160 mg tablet 06/02/2020 10:28:15 PM EDT 1 TAB completed [facility] Sulfamethoxazole 800 MG / Trimethoprim 1 60 MG Oral Tablet Sulfamethoxazole- Trimethoprim (Bactrim Ds) 800-160 mg tablet Sulfamethoxazole-Trimethoprim (Bactrim Ds) 800-160 mg tablet 06/02/2020 10:28:15 PM EDT 1 TAB completed [facility] Sulfamethoxazole 800 MG / Trimethoprim 1 60 MG Oral Tablet Sulfamethoxazole- Trimethoprim (Bactrim Ds) 800-160 mg tablet Sulfamethoxazole-Trimethoprim (Bactrim Ds) 800-160 mg tablet 06/02/2020 10:28:15 PM EDT 1 TAB completed [facility] Sulfamethoxazole 800 MG / Trimethoprim 1 60 MG Oral Tablet Sulfamethoxazole- Trimethoprim (Bactrim Ds) 800-160 mg tablet Sulfamethoxazole-Trimethoprim (Bactrim Ds) 800-160 mg tablet 06/02/2020 10:28:15 PM EDT 1 TAB completed [facility] Sulfamethoxazole 800 MG / Trimethoprim 1 60 MG Oral Tablet Sulfamethoxazole- Trimethoprim (Bactrim Ds) 800-160 mg tablet Sulfamethoxazole-Trimethoprim (Bactrim Ds) 800-160 mg tablet 06/02/2020 10:28:15 PM EDT 1 TAB completed [facility] 24 HR venlafaxine 75 MG Extended Release Oral Capsule [facility] Venlafaxine 06/02/2020 09:08:11 PM EDT 75 MG [facility] 24 HR venlafaxine 75 MG Extended Release Oral Capsule [facility] Venlafaxine 06/02/2020 09:08:11 PM EDT 75 MG [facility] 24 HR venlafaxine 75 MG Extended Release Oral Capsule [facility] Venlafaxine 06/02/2020 09:08:11 PM EDT 75 MG [facility] 24 HR venlafaxine 75 MG Extended Release Oral Capsule [facility] Venlafaxine 06/02/2020 09:08:11 PM EDT 75 MG [facility] 24 HR venlafaxine 75 MG Extended Release Oral Capsule [facility] Venlafaxine 06/02/2020 09:08:11 PM EDT 75 MG [facility] 24 HR venlafaxine 75 MG Extended Release Oral Capsule [facility] Venlafaxine 06/02/2020 09:08:11 PM EDT 75 MG [facility] 24 HR venlafaxine 75 MG Extended Release Oral Capsule [facility] Venlafaxine 06/02/2020 09:08:11 PM EDT 75 MG [facility] 24 HR venlafaxine 75 MG Extended Release Oral Capsule [facility] Venlafaxine 06/02/2020 09:08:11 PM EDT 75 MG active [facility] 24 HR venlafaxine 75 MG Extended Release Oral Capsule [facility] Venlafaxine 06/02/2020 09:08:11 PM EDT 75 MG active [facility] 24 HR venlafaxine 75 MG Extended Release Oral Capsule [facility] Venlafaxine 06/02/2020 09:08:11 PM EDT 75 MG active [facility] 24 HR venlafaxine 75 MG Extended Release Oral Capsule [facility] Venlafaxine 06/02/2020 09:08:11 PM EDT 75 MG active [facility] 24 HR venlafaxine 75 MG Extended Release Oral Capsule [facility] Venlafaxine 06/02/2020 09:08:11 PM EDT 75 MG active [facility] 24 HR venlafaxine 75 MG Extended Release Oral Capsule [facility] Venlafaxine 06/02/2020 09:08:11 PM EDT 75 MG active [facility] 24 HR venlafaxine 75 MG Extended Release Oral Capsule [facility] Venlafaxine 06/02/2020 09:08:11 PM EDT 75 MG active [facility] Cephalexin 750 MG Oral Capsule Cephalexin 06/01/2020 11:14:20 AM EDT 750 MG completed [facility] Cephalexin 750 MG Oral Capsule Cephalexin 06/01/2020 11:14:20 AM EDT 750 MG completed [facility] Cephalexin 750 MG Oral Capsule Cephalexin 06/01/2020 11:14:20 AM EDT 750 MG completed [facility] Cephalexin 750 MG Oral Capsule Cephalexin 06/01/2020 11:14:20 AM EDT 750 MG completed [facility] Cephalexin 750 MG Oral Capsule Cephalexin 06/01/2020 11:14:20 AM EDT 750 MG completed [facility] Cephalexin 750 MG Oral Capsule Cephalexin 06/01/2020 11:14:20 AM EDT 750 MG completed [facility] Cephalexin 750 MG Oral Capsule Cephalexin 06/01/2020 11:14:20 AM EDT 750 MG completed [facility] Cephalexin 750 MG Oral Capsule Cephalexin 06/01/2020 11:14:20 AM EDT 750 MG completed [facility] Cephalexin 750 MG Oral Capsule Cephalexin 06/01/2020 11:14:20 AM EDT 750 MG completed [facility] Cephalexin 750 MG Oral Capsule Cephalexin 06/01/2020 11:14:20 AM EDT 750 MG completed [facility] Cephalexin 750 MG Oral Capsule Cephalexin 06/01/2020 11:14:20 AM EDT 750 MG completed [facility] Cephalexin 750 MG Oral Capsule Cephalexin 06/01/2020 11:14:20 AM EDT 750 MG completed [facility] Cephalexin 750 MG Oral Capsule Cephalexin 06/01/2020 11:14:20 AM EDT 750 MG completed [facility] Cephalexin 750 MG Oral Capsule Cephalexin 06/01/2020 11:14:20 AM EDT 750 MG completed [facility] Levothyroxine Sodium 0.075 MG Oral Table t [Synthroid] Levothyroxine (Synthroid) 75 mcg tablet Levothyroxine (Synthroid) 75 mcg tablet 05/30/2020 05: 11:32 PM EDT 75 MCG completed [facility] Levothyroxine Sodium 0.075 MG Oral Table t [Synthroid] Levothyroxine (Synthroid) 75 mcg tablet Levothyroxine (Synthroid) 75 mcg tablet 05/30/2020 05: 11:32 PM EDT 75 MCG completed [facility] Levothyroxine Sodium 0.075 MG Oral Table t [Synthroid] Levothyroxine (Synthroid) 75 mcg tablet Levothyroxine (Synthroid) 75 mcg tablet 05/30/2020 05: 11:32 PM EDT 75 MCG completed [facility] Levothyroxine Sodium 0.075 MG Oral Table t [Synthroid] Levothyroxine (Synthroid) 75 mcg tablet Levothyroxine (Synthroid) 75 mcg tablet 05/30/2020 05: 11:32 PM EDT 75 MCG completed [facility] Levothyroxine Sodium 0.075 MG Oral Table t [Synthroid] Levothyroxine (Synthroid) 75 mcg tablet Levothyroxine (Synthroid) 75 mcg tablet 05/30/2020 05: 11:32 PM EDT 75 MCG completed [facility] Levothyroxine Sodium 0.075 MG Oral Table t [Synthroid] Levothyroxine (Synthroid) 75 mcg tablet Levothyroxine (Synthroid) 75 mcg tablet 05/30/2020 05: 11:32 PM EDT 75 MCG completed [facility] Levothyroxine Sodium 0.075 MG Oral Table t [Synthroid] Levothyroxine (Synthroid) 75 mcg tablet Levothyroxine (Synthroid) 75 mcg tablet 05/30/2020 05: 11:32 PM EDT 75 MCG completed [facility] Levothyroxine Sodium 0.075 MG Oral Table t [Synthroid] Levothyroxine (Synthroid) 75 mcg tablet Levothyroxine (Synthroid) 75 mcg tablet 05/30/2020 05: 11:32 PM EDT 75 MCG completed [facility] Levothyroxine Sodium 0.075 MG Oral Table t [Synthroid] Levothyroxine (Synthroid) 75 mcg tablet Levothyroxine (Synthroid) 75 mcg tablet 05/30/2020 05: 11:32 PM EDT 75 MCG completed [facility] Levothyroxine Sodium 0.075 MG Oral Table t [Synthroid] Levothyroxine (Synthroid) 75 mcg tablet Levothyroxine (Synthroid) 75 mcg tablet 05/30/2020 05: 11:32 PM EDT 75 MCG completed [facility] Levothyroxine Sodium 0.075 MG Oral Table t [Synthroid] Levothyroxine (Synthroid) 75 mcg tablet Levothyroxine (Synthroid) 75 mcg tablet 05/30/2020 05: 11:32 PM EDT 75 MCG completed [facility] Levothyroxine Sodium 0.075 MG Oral Table t [Synthroid] Levothyroxine (Synthroid) 75 mcg tablet Levothyroxine (Synthroid) 75 mcg tablet 05/30/2020 05: 11:32 PM EDT 75 MCG completed [facility] Clonidine Hydrochloride 0.1 MG Oral Tablet Clonidine Hcl Patrica nidine Hcl 04/19/2020 06:59:17 AM EDT 0.1 MG completed [facility] Clonidine Hydrochloride 0.1 MG Oral Tablet Clonidine Hcl Patrica nidine Hcl 04/19/2020 06:59:17 AM EDT 0.1 MG completed [facility] Clonidine Hydrochloride 0.1 MG Oral Tablet Clonidine Hcl Patrica nidine Hcl 04/19/2020 06:59:17 AM EDT 0.1 MG completed [facility] Clonidine Hydrochloride 0.1 MG Oral Tablet Clonidine Hcl Patrica nidine Hcl 04/19/2020 06:59:17 AM EDT 0.1 MG completed [facility] Clonidine Hydrochloride 0.1 MG Oral Tablet Clonidine Hcl Patrica nidine Hcl 04/19/2020 06:59:17 AM EDT 0.1 MG completed [facility] Clonidine Hydrochloride 0.1 MG Oral Tablet Clonidine Hcl Patrica nidine Hcl 04/19/2020 06:59:17 AM EDT 0.1 MG completed [facility] Clonidine Hydrochloride 0.1 MG Oral Tablet Clonidine Hcl Patrica nidine Hcl 04/19/2020 06:59:17 AM EDT 0.1 MG completed [facility] Clonidine Hydrochloride 0.1 MG Oral Tablet Clonidine Hcl Patrica nidine Hcl 04/19/2020 06:59:17 AM EDT 0.1 MG completed [facility] Clonidine Hydrochloride 0.1 MG Oral Tablet Clonidine Hcl Patrica nidine Hcl 04/19/2020 06:59:17 AM EDT 0.1 MG completed [facility] Clonidine Hydrochloride 0.1 MG Oral Tablet Clonidine Hcl Patrica nidine Hcl 04/19/2020 06:59:17 AM EDT 0.1 MG completed [facility] 24 HR venlafaxine 75 MG Extended Release Oral Capsule Venlaf axine Venlafaxine 04/19/2020 06:58:28 AM EDT 150 MG completed [facility] 24 HR venlafaxine 75 MG Extended Release Oral Capsule Venlaf axine Venlafaxine 04/19/2020 06:58:28 AM EDT 150 MG completed [facility] 24 HR venlafaxine 75 MG Extended Release Oral Capsule Venlaf axine Venlafaxine 04/19/2020 06:58:28 AM EDT 150 MG completed [facility] 24 HR venlafaxine 75 MG Extended Release Oral Capsule Venlaf axila Venlafaxine 04/19/2020 06:58:28 AM EDT 150 MG completed [facility] 24 HR venlafaxine 75 MG Extended Release Oral Capsule Venlaf axila Venlafaxine 04/19/2020 06:58:28 AM EDT 150 MG completed [facility] 24 HR venlafaxine 75 MG Extended Release Oral Capsule Venlaf axine Venlafaxine 04/19/2020 06:58:28 AM EDT 150 MG completed [facility] 24 HR venlafaxine 75 MG Extended Release Oral Capsule Venlaf axine Venlafaxine 04/19/2020 06:58:28 AM EDT 150 MG completed [facility] 24 HR venlafaxine 75 MG Extended Release Oral Capsule Venlaf axine Venlafaxine 04/19/2020 06:58:28 AM EDT 150 MG completed [facility] 24 HR venlafaxine 75 MG Extended Release Oral Capsule Venlaf axine Venlafaxine 04/19/2020 06:58:28 AM EDT 150 MG completed [facility] 24 HR venlafaxine 75 MG Extended Release Oral Capsule Venlaf axine Venlafaxine 04/19/2020 06:58:28 AM EDT 150 MG completed [facility] 24 HR venlafaxine 75 MG Extended Release Oral Capsule Venlaf axine Venlafaxine 04/19/2020 06:58:28 AM EDT 150 MG completed [facility] 24 HR venlafaxine 75 MG Extended Release Oral Capsule Venlaf axine Venlafaxine 04/19/2020 06:58:28 AM EDT 150 MG completed [facility] 24 HR venlafaxine 75 MG Extended Release Oral Capsule Venlaf axine Venlafaxine 04/19/2020 06:58:28 AM EDT 150 MG completed [facility] 24 HR venlafaxine 75 MG Extended Release Oral Capsule Venlaf axine Venlafaxine 04/19/2020 06:58:28 AM EDT 150 MG completed [facility] brimonidine 0.0033 MG/MG Topical Gel Brimonidine (Mirv aso) 0.33 % gel Brimonidine (Mirvaso) 0.33 % gel 04/12/2020 07:42:52 AM EDT 1 APPLIC completed [facility] brimonidine 0.0033 MG/MG Topical Gel Brimonidine (Mirv aso) 0.33 % gel Brimonidine (Mirvaso) 0.33 % gel 04/12/2020 07:42:52 AM EDT 1 APPLIC completed [facility] brimonidine 0.0033 MG/MG Topical Gel Brimonidine (Mirv aso) 0.33 % gel Brimonidine (Mirvaso) 0.33 % gel 04/12/2020 07:42:52 AM EDT 1 APPLIC completed [facility] brimonidine 0.0033 MG/MG Topical Gel Brimonidine (Mirv aso) 0.33 % gel Brimonidine (Mirvaso) 0.33 % gel 04/12/2020 07:42:52 AM EDT 1 APPLIC completed [facility] brimonidine 0.0033 MG/MG Topical Gel Brimonidine (Mirv aso) 0.33 % gel Brimonidine (Mirvaso) 0.33 % gel 04/12/2020 07:42:52 AM EDT 1 APPLIC completed [facility] brimonidine 0.0033 MG/MG Topical Gel Brimonidine (Mirv aso) 0.33 % gel Brimonidine (Mirvaso) 0.33 % gel 04/12/2020 07:42:52 AM EDT 1 APPLIC completed [facility] brimonidine 0.0033 MG/MG Topical Gel Brimonidine (Mirv aso) 0.33 % gel Brimonidine (Mirvaso) 0.33 % gel 04/12/2020 07:42:52 AM EDT 1 APPLIC completed [facility] brimonidine 0.0033 MG/MG Topical Gel Brimonidine (Mirv aso) 0.33 % gel Brimonidine (Mirvaso) 0.33 % gel 04/12/2020 07:42:52 AM EDT 1 APPLIC completed [facility] brimonidine 0.0033 MG/MG Topical Gel Brimonidine (Mirv aso) 0.33 % gel Brimonidine (Mirvaso) 0.33 % gel 04/12/2020 07:42:52 AM EDT 1 APPLIC completed [facility] brimonidine 0.0033 MG/MG Topical Gel Brimonidine (Mirv aso) 0.33 % gel Brimonidine (Mirvaso) 0.33 % gel 04/12/2020 07:42:52 AM EDT 1 APPLIC completed [facility] brimonidine 0.0033 MG/MG Topical Gel Brimonidine (Mirv aso) 0.33 % gel Brimonidine (Mirvaso) 0.33 % gel 04/12/2020 07:42:52 AM EDT 1 APPLIC completed [facility] brimonidine 0.0033 MG/MG Topical Gel Brimonidine (Mirv aso) 0.33 % gel Brimonidine (Mirvaso) 0.33 % gel 04/12/2020 07:42:52 AM EDT 1 APPLIC completed [facility] brimonidine 0.0033 MG/MG Topical Gel Brimonidine (Mirv aso) 0.33 % gel Brimonidine (Mirvaso) 0.33 % gel 04/12/2020 07:42:52 AM EDT 1 APPLIC completed [facility] Metronidazole 7.5 MG/ML Topical Cream Metronidazole 04/12/2020 07:41:25 AM EDT 1 APPLIC completed [facility] Metronidazole 7.5 MG/ML Topical Cream Metronidazole 04/12/2020 07:41:25 AM EDT 1 APPLIC completed [facility] Metronidazole 7.5 MG/ML Topical Cream Metronidazole 04/12/2020 07:41:25 AM EDT 1 APPLIC completed [facility] Metronidazole 7.5 MG/ML Topical Cream Metronidazole 04/12/2020 07:41:25 AM EDT 1 APPLIC completed [facility] Metronidazole 7.5 MG/ML Topical Cream Metronidazole 04/12/2020 07:41:25 AM EDT 1 APPLIC completed [facility] Metronidazole 7.5 MG/ML Topical Cream Metronidazole 04/12/2020 07:41:25 AM EDT 1 APPLIC completed [facility] Metronidazole 7.5 MG/ML Topical Cream Metronidazole 04/12/2020 07:41:25 AM EDT 1 APPLIC completed [facility] Metronidazole 7.5 MG/ML Topical Cream Metronidazole 04/12/2020 07:41:25 AM EDT 1 APPLIC completed [facility] Metronidazole 7.5 MG/ML Topical Cream Metronidazole 04/12/2020 07:41:25 AM EDT 1 APPLIC completed [facility] Metronidazole 7.5 MG/ML Topical Cream Metronidazole 04/12/2020 07:41:25 AM EDT 1 APPLIC completed [facility] Metronidazole 7.5 MG/ML Topical Cream Metronidazole 04/12/2020 07:41:25 AM EDT 1 APPLIC completed [facility] Metronidazole 7.5 MG/ML Topical Cream Metronidazole 04/12/2020 07:41:25 AM EDT 1 APPLIC completed [facility] Metronidazole 7.5 MG/ML Topical Cream Metronidazole 04/12/2020 07:41:25 AM EDT 1 APPLIC completed [facility] Metronidazole 7.5 MG/ML Topical Cream Metronidazole 04/12/2020 07:41:25 AM EDT 1 APPLIC completed [facility] Simvastatin 10 MG Oral Tablet Simvastatin 04/06/2020 08:41:17 AM EDT 10 MG completed [facility] Simvastatin 10 MG Oral Tablet Simvastatin 04/06/2020 08:41:17 AM EDT 10 MG completed [facility] Simvastatin 10 MG Oral Tablet Simvastatin 04/06/2020 08:41:17 AM EDT 10 MG completed [facility] Simvastatin 10 MG Oral Tablet Simvastatin 04/06/2020 08:41:17 AM EDT 10 MG completed [facility] Simvastatin 10 MG Oral Tablet Simvastatin 04/06/2020 08:41:17 AM EDT 10 MG completed [facility] Simvastatin 10 MG Oral Tablet Simvastatin 04/06/2020 08:41:17 AM EDT 10 MG completed [facility] Simvastatin 10 MG Oral Tablet Simvastatin 04/06/2020 08:41:17 AM EDT 10 MG completed [facility] Simvastatin 10 MG Oral Tablet Simvastatin 04/06/2020 08:41:17 AM EDT 10 MG completed [facility] Simvastatin 10 MG Oral Tablet Simvastatin 04/06/2020 08:41:17 AM EDT 10 MG completed [facility] Omeprazole 40 MG Delayed Release Oral Capsule Omeprazole 04/03/2020 07:17:40 AM EDT 40 MG completed [facility] Omeprazole 40 MG Delayed Release Oral Capsule Omeprazole 04/03/2020 07:17:40 AM EDT 40 MG completed [facility] Omeprazole 40 MG Delayed Release Oral Capsule Omeprazole 04/03/2020 07:17:40 AM EDT 40 MG completed [facility] Omeprazole 40 MG Delayed Release Oral Capsule Omeprazole 04/03/2020 07:17:40 AM EDT 40 MG completed [facility] Omeprazole 40 MG Delayed Release Oral Capsule Omeprazole 04/03/2020 07:17:40 AM EDT 40 MG completed [facility] Famotidine 20 MG Oral Tablet Famotidine 10/21/2019 10:52:16 AM EST 20 MG completed [facility] Famotidine 20 MG Oral Tablet Famotidine 10/21/2019 10:52:16 AM EST 20 MG completed [facility] Famotidine 20 MG Oral Tablet Famotidine 10/21/2019 10:52:16 AM EST 20 MG completed [facility] Famotidine 20 MG Oral Tablet Famotidine 10/21/2019 10:52:16 AM EST 20 MG completed [facility] Famotidine 20 MG Oral Tablet Famotidine 10/21/2019 10:52:16 AM EST 20 MG completed [facility] Famotidine 20 MG Oral Tablet Famotidine 10/21/2019 10:52:16 AM EST 20 MG completed [facility] Famotidine 20 MG Oral Tablet Famotidine 10/21/2019 10:52:16 AM EST 20 MG completed [facility] Famotidine 20 MG Oral Tablet Famotidine 10/21/2019 10:52:16 AM EST 20 MG completed [facility] Famotidine 20 MG Oral Tablet Famotidine 10/21/2019 10:52:16 AM EST 20 MG completed [facility] Famotidine 20 MG Oral Tablet Famotidine 10/21/2019 10:52:16 AM EST 20 MG completed [facility] Famotidine 20 MG Oral Tablet Famotidine 10/21/2019 10:52:16 AM EST 20 MG completed [facility] Famotidine 20 MG Oral Tablet Famotidine 10/21/2019 10:52:16 AM EST 20 MG completed [facility] Levothyroxine Sodium 0.088 MG Oral Table t levothyroxine (SYNTHROID, LEVOTHROID) 88 MCG tablet levothyroxine (SYNTHROID, LEVOTHROID) 88 MCG tablet 12:00:00 AM EST aborted [facility] letrozole 2.5 MG Oral Tablet Letrozole Letrozole 05/26/2014 09:5 2:00 AM EDT 2.5 MG completed [facility] letrozole 2.5 MG Oral Tablet Letrozole Letrozole 05/26/2014 09:5 2:00 AM EDT 2.5 MG completed [facility] letrozole 2.5 MG Oral Tablet Letrozole Letrozole 05/26/2014 09:5 2:00 AM EDT 2.5 MG completed [facility] letrozole 2.5 MG Oral Tablet Letrozole Letrozole 05/26/2014 09:5 2:00 AM EDT 2.5 MG completed [facility] letrozole 2.5 MG Oral Tablet Letrozole Letrozole 05/26/2014 09:5 2:00 AM EDT 2.5 MG completed [facility] letrozole 2.5 MG Oral Tablet Letrozole Letrozole 05/26/2014 09:5 2:00 AM EDT 2.5 MG completed [facility] letrozole 2.5 MG Oral Tablet Letrozole Letrozole 05/26/2014 09:5 2:00 AM EDT 2.5 MG completed [facility] letrozole 2.5 MG Oral Tablet Letrozole Letrozole 05/26/2014 09:5 2:00 AM EDT 2.5 MG completed [facility] letrozole 2.5 MG Oral Tablet Letrozole Letrozole 05/26/2014 09:5 2:00 AM EDT 2.5 MG completed [facility] letrozole 2.5 MG Oral Tablet Letrozole Letrozole 05/26/2014 09:5 2:00 AM EDT 2.5 MG completed [facility] Insurance Providers Payer name Policy type / Coverage type Policy ID Covered libertarian ID Covered libertarian's relationship to smith Policy Smith Plan Information [facility] P [id number] SELF [id number] EXCELLUS H [id number] Self [id number] EXCELLUS H [id number] Self [id number] [facility] P [id number] SELF [id number] [facility] P [id number] SELF [id number] Medicare C [id number] SELF [id number] MEDICARE [id number] Essie [id number] U88 Medicare C [id number] SELF [id number] A MEDICARE [id number] MEDICARE [id number] Self [id number] [facility] AARP Supplemental F [id number] SELF [id number] Aarp Secondary [id number] Medicare Primary [id number] [facility] [id number] Essie [id number] COMMERCIAL GENERIC [id number] COMMERCIAL GENERIC [id number] Self [id number] [facility] [id number] S [id number] MEDICARE [id number] SP [id number] [facility] [place] [id number] 18 [id number] MEDICARE PART A [facility] [id number] 18 [id number] DME Jurisdiction A [facility] C [id number] SELF [id number] [facility] AARP Supplemental F [id number] SELF [id number] [facility] OPT[facility] -[place] [id number] MEDICARE PART A -RECURRING [id number] 18 [id number] Medicare Part B [facility] Other 0 [id number] S elf 0 AAR HEALTH CARE OPTIONS -RECURRING [id number] 18 [id number] Medicare C [id number] SELF [id number] A BLUE CROSS BLUE SHIELD -O/P [id number] EXCELLUS PPO [id number] [facility] OPT[facility] [id number] SP [id number] Problems, Conditions, and Diagnoses Code Display Name Description Problem Type Effective Dates Data Source(s) E78.5 Hyperlipidemia, unspecified Hyperlipidemia, unspecifie d Diagnosis 05/24/2021 03:01:38 PM EDT [facility] R73.03 Prediabetes Prediabetes Diagnosis 05/24/2021 03:01:38 PM EDT [facility] E05.90 Thyrotoxicosis, unspecified without thyr otoxic crisis or storm Thyrotoxicosis, unspecified without thyr Diagnosis 05/24/2021 03:01:38 PM EDT [facility] E04.0 Nontoxic diffuse goiter Nontoxic diffuse goiter Diagno sis 05/24/2021 03:01:38 PM EDT [facility] E06.3 Autoimmune thyroiditis Autoimmune thyroiditis Diagnosi s 05/24/2021 03:01:38 PM EDT [facility] E03.8 Other specified hypothyroidism Other specified hypothy roidism Diagnosis 05/24/2021 03:01:38 PM EDT [facility] R73.9 Hyperglycemia, unspecified Hyperglycemia, unspecified Diagnosis 01/29/2021 02:39:59 PM EDT [facility] Surgeries/Procedures Procedure Description Date Indications Data Source(s) OFFICE OUTPATIENT NEW 30 MINUTES 04/23/2021 12:00:00 A M EDT [facility] ([facility], ) Ultrasonography of abdomen (procedure) 03/16/2021 08:5 0:00 AM EDT [facility] 12/22/2020 12:00:00 AM EDT [facility] SARS-CoV-2 Rapid RNA (RT-PCR) 12/22/2020 12:00:00 AM E [facility] 12/22/2020 12:00:00 AM EDT [facility] SARS-CoV-2 Rapid RNA (RT-PCR) 12/22/2020 12:00:00 AM E [facility] MRI Knee Right w/o 11/20/2020 09:03:00 AM [facility] MRI Knee Right w/o 11/20/2020 09:03:00 AM [facility] MRI Knee Right w/o 11/20/2020 09:03:00 AM [facility] MRI Knee Right w/o 11/20/2020 09:03:00 AM [facility] MRI Knee Right w/o 11/20/2020 09:03:00 AM [facility] MRI Knee Right w/o 11/20/2020 09:03:00 AM [facility] MRI Knee Right w/o 11/20/2020 09:03:00 AM [facility] Bacterial culture (procedure) 11/14/2020 12:00:00 AM E [facility] Gram stain microscopy (procedure) 11/14/2020 12:00:00 AM [facility] Bacterial culture (procedure) 11/14/2020 12:00:00 AM E [facility] Gram stain microscopy (procedure) 11/14/2020 12:00:00 AM [facility] Bacterial culture (procedure) 11/14/2020 12:00:00 AM E [facility] Gram stain microscopy (procedure) 11/14/2020 12:00:00 AM [facility] Bacterial culture (procedure) 11/14/2020 12:00:00 AM E [facility] Gram stain microscopy (procedure) 11/14/2020 12:00:00 AM [facility] Bacterial culture (procedure) 11/14/2020 12:00:00 AM E [facility] Gram stain microscopy (procedure) 11/14/2020 12:00:00 AM [facility] Bacterial culture (procedure) 11/14/2020 12:00:00 AM E [facility] Gram stain microscopy (procedure) 11/14/2020 12:00:00 AM [facility] Bacterial culture (procedure) 11/14/2020 12:00:00 AM E [facility] Gram stain microscopy (procedure) 11/14/2020 12:00:00 AM [facility] Bacterial culture (procedure) 11/14/2020 12:00:00 AM E [facility] Gram stain microscopy (procedure) 11/14/2020 12:00:00 AM [facility] X-ray of right knee (procedure) 11/13/2020 12:29:09 PM [facility] X-ray of right knee (procedure) 11/13/2020 12:29:09 PM [facility] X-ray of right knee (procedure) 11/13/2020 12:29:09 PM [facility] X-ray of right knee (procedure) 11/13/2020 12:29:09 PM [facility] X-ray of right knee (procedure) 11/13/2020 12:29:09 PM [facility] X-ray of right knee (procedure) 11/13/2020 12:29:09 PM [facility] X-ray of right knee (procedure) 11/13/2020 12:29:09 PM [facility] X-ray of right knee (procedure) 11/13/2020 12:29:09 PM [facility] X-ray of right knee (procedure) 11/13/2020 12:29:09 PM [facility] Computed tomography of abdomen and pelvis with contrast (pro cedure) 10/25/2020 11:43:17 AM [facility] Computed tomography of abdomen and pelvis with contrast (pro cedure) 10/25/2020 11:43:17 AM [facility] Computed tomography of abdomen and pelvis with contrast (pro cedure) 10/25/2020 11:43:17 AM [facility] Computed tomography of abdomen and pelvis with contrast (pro cedure) 10/25/2020 11:43:17 AM [facility] Computed tomography of abdomen and pelvis with contrast (pro cedure) 10/25/2020 11:43:17 AM [facility] Computed tomography of abdomen and pelvis with contrast (pro cedure) 10/25/2020 11:43:17 AM [facility] Computed tomography of abdomen and pelvis with contrast (pro cedure) 10/25/2020 11:43:17 AM [facility] Computed tomography of abdomen and pelvis with contrast (pro cedure) 10/25/2020 11:43:17 AM [facility] Computed tomography of abdomen and pelvis with contrast (pro cedure) 10/25/2020 11:43:17 AM [facility] Diagnostic radiography of abdomen (procedure) 10/24/19 21 05:53:00 PM [facility] Diagnostic radiography of abdomen (procedure) 10/24/19 21 05:53:00 PM [facility] Diagnostic radiography of abdomen (procedure) 10/24/19 21 05:53:00 PM [facility] Diagnostic radiography of abdomen (procedure) 10/24/19 21 05:53:00 PM [facility] Diagnostic radiography of abdomen (procedure) 10/24/19 21 05:53:00 PM [facility] Diagnostic radiography of abdomen (procedure) 10/24/19 21 05:53:00 PM [facility] Diagnostic radiography of abdomen (procedure) 10/24/19 21 05:53:00 PM [facility] Diagnostic radiography of abdomen (procedure) 10/24/19 21 05:53:00 PM [facility] Diagnostic radiography of abdomen (procedure) 10/24/19 21 05:53:00 PM [facility] Urine culture (procedure) 10/24/2020 12:00:00 AM [facility] Urine culture (procedure) 10/24/2020 12:00:00 AM [facility] Urine culture (procedure) 10/24/2020 12:00:00 AM [facility] Urine culture (procedure) 10/24/2020 12:00:00 AM [facility] Urine culture (procedure) 10/24/2020 12:00:00 AM [facility] Urine culture (procedure) 10/24/2020 12:00:00 AM [facility] Urine culture (procedure) 10/24/2020 12:00:00 AM [facility] Urine culture (procedure) 10/24/2020 12:00:00 AM [facility] Urine culture (procedure) 10/24/2020 12:00:00 AM [facility] Ultrasound scan of head (procedure) 10/13/2020 11:48:0 0 AM [facility] Ultrasound scan of head (procedure) 10/13/2020 11:48:0 0 AM [facility] Ultrasound scan of head (procedure) 10/13/2020 11:48:0 0 AM [facility] Ultrasound scan of head (procedure) 10/13/2020 11:48:0 0 AM [facility] Ultrasound scan of head (procedure) 10/13/2020 11:48:0 0 AM [facility] Ultrasound scan of head (procedure) 10/13/2020 11:48:0 0 AM [facility] Ultrasound scan of head (procedure) 10/13/2020 11:48:0 0 AM [facility] Ultrasound scan of head (procedure) 10/13/2020 11:48:0 0 AM [facility] Ultrasound scan of head (procedure) 10/13/2020 11:48:0 0 AM [facility] Ultrasound scan of head (procedure) 10/13/2020 11:48:0 0 AM [facility] Viral antigen assay (procedure) 08/06/2020 12:00:00 AM [facility] Viral [facility] (procedure[facility]06/2020 12:00:00 AM [facility] Viral antigen assay (procedure) 08/06/2020 12:00:00 AM [facility] Viral antigen assay (procedure) 08/06/2020 12:00:00 AM [facility] Viral antigen assay (procedure) 08/06/2020 12:00:00 AM [facility] Viral antigen assay (procedure) 08/06/2020 12:00:00 AM [facility] Viral antigen assay (procedure) 08/06/2020 12:00:00 AM [facility] Viral antigen assay (procedure) 08/06/2020 12:00:00 AM [facility] Viral antigen assay (procedure) 08/06/2020 12:00:00 AM [facility] Severe acute respiratory syndrome coronavirus 2 (SARS-CoV-2) antigen assay 08/06/2020 12:00:00 AM [facility] Severe acute respiratory syndrome coronavirus 2 (SARS-CoV-2) antigen assay 08/06/2020 12:00:00 AM [facility] Viral antigen assay (procedure) 08/01/2020 12:00:00 AM [facility] Viral antigen assay (procedure) 08/01/2020 12:00:00 AM [facility] Viral antigen assay (procedure) 08/01/2020 12:00:00 AM [facility] Viral antigen assay (procedure) 08/01/2020 12:00:00 AM [facility] Viral antigen assay (procedure) 08/01/2020 12:00:00 AM [facility] Viral antigen assay (procedure) 08/01/2020 12:00:00 AM [facility] Viral antigen assay (procedure) 08/01/2020 12:00:00 AM [facility] Viral antigen assay (procedure) 08/01/2020 12:00:00 AM [facility] Viral antigen assay (procedure) 08/01/2020 12:00:00 AM [facility] Viral antigen assay (procedure) 08/01/2020 12:00:00 AM [facility] Severe acute respiratory syndrome coronavirus 2 (SARS-CoV-2) antigen assay 08/01/2020 12:00:00 AM [facility] Severe acute respiratory syndrome coronavirus 2 (SARS-CoV-2) antigen assay 08/01/2020 12:00:00 AM [facility] Ultrasound scan of lower limb veins (procedure) 2019 10:24:00 AM [facility] Ultrasound scan of lower limb veins (procedure) 2019 10:24:00 AM [facility] Ultrasound scan of lower limb veins (procedure) 2019 10:24:00 AM [facility] Ultrasound scan of lower limb veins (procedure) 2019 10:24:00 AM [facility] Ultrasound scan of lower limb veins (procedure) 2019 10:24:00 AM [facility] Ultrasound scan of lower limb veins (procedure) 2019 10:24:00 AM [facility] Ultrasound scan of lower limb veins (procedure) 2019 10:24:00 AM [facility] Ultrasound scan of lower limb veins (procedure) 2019 10:24:00 AM [facility] Ultrasound scan of lower limb veins (procedure) 2019 10:24:00 AM [facility] Ultrasound scan of lower limb veins (procedure) 2019 10:24:00 AM [facility] Ultrasound scan of lower limb veins (procedure) 2019 10:24:00 AM [facility] Ultrasound scan of lower limb veins (procedure) 2019 10:24:00 AM [facility] Ultrasound scan of lower limb veins (procedure) 2019 10:24:00 AM [facility] Ultrasound scan of lower limb veins (procedure) 2019 10:24:00 AM EDT [facility] Results ID Date Data Source [id number] 07/26/2021 03:39:00 PM EDT [facility] Patient Name: NATO STYLES OB: 1950 Sex: F Pt Unit #: [id number] Location:[facility] Provider: Visit Date/Time: 07/26/21 Primary Insurance: MEDICARE [employer] Secondary Insurance: AARP Intake Vital Signs 07/26/21 15:52 07/26/21 17:21 Current Weight 211 lb Weight Measurement Method Standing Scale BP 166/98 138/90 Blood Pressure Location Lt brachial Lt brachial Position Sitting Sitting Respiration 18 Pulse 70 Temp 98.4 F Temp Source Oral Pulse Oximetry (%) 96 Oxygen Delivery Method room air Intake Visit Reasons: Medication check Nurse Note: States 6days without depression medication.States she has been weepy at times ,hearing noises that others don't,just feels like something is wrong.Went and had COVID test done yesterday and today (Was for Colonoscopy) Restarted her depressant medication this am Crossword Puzzle Maker Required: No Accompanied by: Self / Same as Patient Allergies No Known Food Allergies Allergy (Verified 02/21/21 11:10) bupropion [From WELLBUTRIN] Adverse Reaction (Intermediate, Verified 02/21/21 11:10) Depression Medications - Last Reconciled 07/26/21 by CORINNE Rider alprazolam 0.25 mg PO TID PRN MDD 3TABS atorvastatin 40 mg PO QPM cholecalciferol (vitamin D3) 2,000 units PO DAILY clonidine HCl TAKE 1 TABLET AT BEDTIME coenzyme Q10 (Co Q-10) 200 mg PO DAILY cyanocobalamin (vitamin B-12) 1,000 mcg PO DAILY famotidine TAKE 1 TABLET TWICE A DAY letrozole (Femara) 2.5 mg PO QDAY levothyroxine (Synthroid) 50 mcg PO DIRECTED omeprazole 40 mg PO QDAY venlafaxine ER TAKE 2 CAPSULES (150 MG) EVERY MORNING PHQ-2/9 Over the last 2 weeks, how often have you been bothered by any of the following problems? 1. Little interest or pleasure in doing things: not at all (depends on the day) 2. Feeling down, depressed, or hopeless: not at all (the last 3 days has been depressed) Total score: 0 3. Trouble falling or staying asleep, or sleeping too much: more than half the days 4. Feeling tired or having little energy: more than half the days 5. Poor appetite or overeating: more than half the days 6. Feeling bad about yourself - or that you are a failure or have let yourself and your family down:more than half the days 7. Trouble concentrating on things, such as reading the newspaper or watching television: several days 8. Moving or speaking so slowly that other people could have noticed? - Or the opposite - being so fidgety or restless that you have been moving around a lot more than usual: not at all 9. Thoughts that you would be better off or of hurting yourself in some way: not at all Total score: 9 If you checked off any problems, how difficult have these problems made it for you to do your work, take care of things at home, or get along with other people?: somewhat difficult Source: Developed by Drs. Alex Calhoun, Eva Fuchs, Reji Duffy and colleagues, with an educational shaun from [employer]. HIV Testing Offer - ages 13-64 Requirement for HIV testing offer been met?: Patient reports past refusal Do you need a note to return Do you need a note to return to daycare/school/sports/work: No Coronavirus Screening Screening Are you currently positive or on isolation for COVID ?: No Do you have any NEW signs of one or more of the following?: no symptoms Do you have NEW signs of at least two of the following?: no symptoms HPI Additional HPI HPI Details: 71yo female with PMH depression, estela's hypothyroidism, GERD, hyperlipidemia, hx breast CA, lymph edema, LINDSEY, fatty liver, pre diabetes here with complaints of not feeling well. Gerri reports she has been feeling really stiff, especial ly from her hips down for the past few months. Patient thinks she may Lyme Disease. She did not find a tick on her this summer but reports she did find one last summer. She did not seek medical care after finding the tick on her one year ago. Patient saw her real estate sales associate yesterday and reports the doctor thought her stiffness may be dueto Estela. She went to the chiropractor twice recently which helped her stiffness and has tried to massage her leg muscles which has not helped. Reports stiffness is the worst after riding in the car but improves once she gets out and starts moving again. Reports mild morning stiffness that is less than what she experiences after riding in a car. Patient has taken ibuprofen for stiffness which has helped some. She reports muscle soreness in her right leg but denies any swollen or warm joints. Patient had a torn meniscus in her right knee recently and reports the stiffness began before the injury. Was told in the past she has a "stiff gait" which may have caused her meniscus tear, according to the patient. Patient reports she has forgotten to take her venlafaxine medication for the past 6 days. Reports she has been hearing "pieces of paper" rubbing together that no one else hears. Did restart venlafaxine ER 75mg 2capsules today. Had a rapid COVID test yesterday which was negative and a COVID PCR test this morning which she has not gotten back yet. Patient states she has an awful headache, shaking chills, tremor, night sweats,constipation, abdominal pain, loss in appetite, has been crying all the time and aching all over. She also reports trouble sleeping. Denies loss of smell or taste or fever. She states she didn't know what would be causing these symptoms so she thought maybe it was COVID. Patient reports she hadCOVID last July. Patient was vaccinated with Moderna for COVID-19 in December. When patient had COVID, she reports she had a stuffy nose, fatigue and lost her smell and taste. Patient also recently had her flu vaccine. Patient took a Xanax to "take the edge off" this morning after gettingher COVID PCR test which seemed to help a little. Patient is having a colonoscopy in 5 days for constipation, abdominal pain and FHx of colon cancer in her daughter at 38 years old[address] Has seen Dr. Kelly 3 times but I have only received one consult. Told she has fatty liver. Has seen endocrinology several times and I have not received any consults. Has appt next month andwill be having labs done prior to appt - told she has hashimotos. Currently on levothyroxine 50mcg qod. [facility] Medical History (Updated 07/26/21 @ 17:18 by CORINNE Rider) Achilles tendinitis, left leg Acquired hypothyroidism (01/16/12) Anxiety Attention deficit hyperactivity disorder, predominantly inattentive type B parish's cyst of knee CAD (coronary artery disease) (04/16/18) Constipation due to slow transit Coronary atherosclerosis of [place] coronary vessel (12/06/13) Diverticulitis GERD without esophagitis (04/23/18) Hypokalemia (10/09/18) Insomnia Left ventricular diastolic dysfunction Lobular carcinoma of breast, stage 1 Lymphedema of left lower extremity Mitral regurgitation Mixed hyperlipidemia (12/06/13) Moderate recurrent major depression Obesity Obstructive sleep apnea syndrome Plantar fasciitis, left (10/13/18) Pre- diabetes Rosacea Tricuspid regurgitation Vitamin D deficiency Surgical History H/O arthroscopy of right knee History of ankle surgery History of arthroscopy of left knee History of bilateral mastectomy History of cardiac cath History of cholecystectomy History of colonoscopy (08/11/14) History of hysterectomy History of left breast biopsy History of right knee surgery History of sinus surgery Status post tubal ligation Family History Mother No problems noted. Father Diabetes Congestive heart failure, Onset Age: 82 Hypertension AUNT No problems noted. UNCLES No problems noted. UNCLES No problems noted. Social History Does the Patient have a Healthcare Proxy: No Does Patient have a DNR?: No Does Patient have a Living Will?: No Does the Patient have a MOLST?: No Advance Directives on File or in chart?: No adopted: No household members: spouse housing: house marital status: lives independently: Yes highest education level completed: high school graduate service: No current occupational status: retired Hx Recent Travel (where): No well-balanced diet: daily caffeine: Yes (1 D. SODA/DAY) Type: carbonated beverages and coffee Number of servings: 2 high -fat food intake: 0-1 times daily daily servings fruits/ve-4 daily servings of milk/calcium: 2-4 eating out: 1-3 times/week what type of physical activity do you participate in?: walking frequency: 3-4 times per week duration: 30-45 minutes/day Smoking Status: Never smoker alcohol intake: never substance use type: does not use rodney/denominational: Voodoo special rodney needs: Yes seatbelt use: always drive intox or ride w/ intox frontload driver: No water heater temp set < 120 deg: Yes working smoke detector in home: Yes fire extinguisher in home: Yes carbon monox detector in home: Yes firearms in home: Yes firearms unloaded and locked: Yes do you feel safe at home: Yes victim of physical abuse: No victim of emotional abuse: No victim of sexual abuse: No would you like helpful sources: No Questionnaire HAYDEE-7 HAYDEE-7 Feeling nervous, anxious, or on edge: 1 = Several days Not being able to stop or control worryin = Sever al days Worrying too much about different things: 1 = Several days Trouble relaxin = Several days Being so restless that it is hard to sit still: 1 = Several days Becoming easily annoyed or irritable: 1 = Several days Feeling afraid as if something awful might happen: 0 = Not at all Total HAYDEE-7 score (0- 4 normal; 5-9 mild; 10-14 moderate; 15-21 severe): 6 Source: Developed by Drs. Alex Calhoun, Eva Fuchs, Reji Duffy and colleagues, with an educational shaun from [employer]. Review of Systems Const Reports body aches, Reports chills (and shakes), Reports difficulty sleeping, Reports fatigue, Denies fever(s), Reports headache(s), Reports lethargy, Reports night sweats, Reports poor appetite and Reports weight loss Eyes Denies blurry vision, Denies change in vision and Denies itchy eyes ENT Denies vertigo, Reports dizziness (lightheadedness), Denies ear discharge, Denies otalgia, Reports headache(s), Denies nasal congestion, Denies nose pain, Reports post nasal drip and Denies sore throat Card Denies chest pain, Denies rapid heart rate, Reports pedal edema (normal for her), Denies edema and Reports dyspnea on exertion (normal for her) Resp Denies cough and Reports dyspnea on exertion (normal for her) GI Denies bloating, Reports constipation, Denies diarrhea, Reports nausea and Denies vomiting Genitourinary: Denies urinary frequency, urinary incontinence, urinary hesitancy or urinary urgency Musc Reports myalgias, Denies joint swelling and Reports stiffness Skin/Breast Denies new lesions and Denies rash Neuro Denies confusion, Denies vertigo, Reports dizziness (lightheadedness), Reports headache(s) and Denies paresthesias Psych Reports abnormal sleep pattern, Reports anxiety, Denies confusion, Reports depression (feels sad), Reports irritability, Reports mood swings, Denies panic attacks, Reports paranoia (crying a lot for "non reason" according to the patient) and Reports other (abnormal dreams, hearing "paper rubbing together" noise randomly) Endo Denies cold intolerance, Reports fatigue and Denies heat intolerance Shawn/Lymph Denies easy bleeding, Denies easy bruising and Denies lymphadenopathy Aller/Immun Denies itchy eyes Exam Const General: cooperative, healthy appearing, comfortable, no acute distress, well developed and well groomed Nutritional Appearance: obese [facility] Head: normocephalic and atraumatic Ears: TM normal on the left, EAC abnormal (CERUMEN BILAT) and unable to visualize TM (RT TM D/T CERUMEN) General nose exam: no nasal discharge Mouth: oral mucosae normal and moist mucous membranes Throat: posterior oropharynx normal Eyes Conjunctivae: conjunctivae normal Pupils: PERRL EOM: EOM intact bilaterally Neck Neck: no lymphadenopathy Thyroid: thyroid normal Carotids: no bruits Resp Effort Inspection: normal respiratory effort and able to speak in complete sentences Auscultation: clear to auscultation bilaterally, no crackles, lung sounds not diminished, no rhonchiand no wheezes Cardio Rate: regular rate Rhythm: regular rhythm Heart Sounds: S1 normal and S2 normal Pulses: posterior tibial pulses present bilaterally 3+ GI Palpation: soft, not firm, no masses, not rigid and nontender Auscultation: normal bowel sounds Skin Rashes: no rashes Neuro Cranial Nerves: CN's II-XII intact bilaterally Extrem General: edema (LYMPHEDEMA BILAT LT < RT, HAS C OMPRESSION STOCKING LT LE) Psych Appearance: grossly normal Mental Status: mental status grossly normal Speech and Movement: speech and movement normal Mood: dysthymic mood Affect: normal affect Attitude: cooperative Thought Process: normal Quality Reporting Depression/Bipolar (159/160/161/169/177) Total score: 9 Assessment Plan Assessment Plan (1) Moderate recurrent major depression: Status: Chronic Code(s): F33.1 - Major depressive disorder, recurrent, moderate SNOMED Code(s): 432252915 Category: Medical Plan: Gerri went 6 days without taking venlafaxine ER 75mg 2capsules daily. Restarted this AM. I discussed with Gerri that a lot of the symptoms she is having could be related to not taking her venlafaxine. Discussed with Gerri that it is a medication that is normally tapered off gradually before stopping. I advised that if the above symptoms are related to withdrawal from the venlafaxine they should improve and resolve. (2) Joint stiffness of multiple sites: Code(s): M25.60 - Stiffness of unspecified joint, not elsewhere classified Plan: Obtain labs from Dr. Kelly as he previously ordered an BRENDAN. Rheumatoid and lyme titer ordered. Recommended stopping atorvastatin to see if joint stiffness/pain improves. (3) Elevated BP without diagnosis of hypertension: Code(s): R03.0 - Elevated blood-pressure reading, without diagnosis of hypertension Plan: Monitor BP. Encouraged increased water intake, avoid sodium rich foods. Call if BP remains elevated. (4) Acquired hypothyroidism: Status: Chronic Onset Date: 01/16/12 Code(s): E03.9 - Hypothyroidism, unspecified SNOMED Code(s): 904546865 Category: Medical Plan: Hashimotos - continue with endocrinology. Due to have labs done next month and has f/u appt. Discussed that if thyroid function is not in normal range, that can affect the body as well - cold/heat intolerance/constipation/joint pain. Obtain endocrinology records. Plan: Will call with lab results. Encouraged to download portal dominic for her phone and she can send messages to me/make/change appts/request RF on medications. Set up a f/u appt for 3months. A student assisted with the documentation of this service. I saw and personally examined the patientand reviewed and verified all information documented by the student and made modifications to such information when appropriate. Orders: Orders HGBA1C + EAG 1 Week R73.03 - Prediabetes CRP, C-REACTIVE PROTEIN 1 Week M25.60 - Stiffness of unspecified joint, not elsewhere classified RHEUMATOID FACTOR 1 Week M25.60 - Stiffness of unspecified joint, not elsewhere classified URIC ACID 1 Week M25.60 - Stiffness of unspecified joint, not elsewhere classified SED RATE 1 Week M25.60 - Stiffness of unspecified joint, not elsewhere classified Citrullinated Peptide CCP IgG 1 Week M25.60 - Stiffness of unspecified joint, not elsewhere classified Lyme IgG/IgM rfx -Immublot(WB) 1 Week M25.60 - Stiffness of unspecified joint, not elsewhere classified CMP 1 Week R74.8 - Abnormal levels of other serum enzymes Additional Comments Additional Comments: Student Attestation: I participated in the documentation of this service as a Physician Datastage Architect Student. Aminah Sommers [facility] PA-S2 Coding Level of Care Code 77117 Est Pt Extended Comp Diagnoses Moderate recurrent major depression F33.1 Joint stiffness of multiple sites M25.60 Elevated BP without diagnosis of hypertension R03.0 Acquired hypothyroidism E03.9 <Electronically signed by Verónica Leung RPA C> 07/26/21 1836 <Electronically signed by Aminah Sommers PAS> 07/26/21 1650 Name Value Range Interpretation Code Description Data Alyssa rce(s) Supporting Document(s) ID Date Data Source [id number] 07/25/2021 12:00:00 AM EDT [facility] Name Value Range Interpretation Code Description Data Alyssa rce(s) Supporting Document(s) SARS-CoV2 Rapid Antigen Negative [facility] This lab was ordered by [facility] and reported by [facility]. ID Date Data Source [id number] 05/14/2021 12:25:00 PM EDT [facility] [address] [place] [address] [phone] NAME SEX PT STATUS ACCOUNT NUMBER NATO STYLES REG REF [id number] ORDERING PHYSICIAN LOCATION MEDICAL RECORD NO. Hubert Kelly MD MRI [id number] ATTENDING PHYSICIAN DATE OF DATE OF EXAM/TIME Verónica Leung RPA 1950 05[birth year]09/21814 TYPE / EXAM MRI MRCP REASON FOR EXAM POSITIVE ANCA, ABN LFT, R/O PSC Clinical History/Indication for Exam: R/O PCS MR ABDOMEN WITHOUT INTRAVENOUS CONTRAST MRCP PROTOCOL INDICATION: R/O PCS TECHNIQUE: Multiplanar magnetic resonance images of the abdomen without intravenous contrast usingMRCP protocol. MIP reconstructed images were created and reviewed. COMPARISON: CT abdomen pelvis October 25, 2020. Ultrasound abdomen dated March 16, 2021. FINDINGS: Lower thorax: Hiatal hernia is present. Bile ducts: See below. Gallbladder: Cholecystectomy. The common bile duct measures 8 mm in diameter, within normal limits after cholecystectomy. Liver: No distention of the intrahepatic biliary tree. Pancreas: The pancreatic duct is not distended. Spleen: Unremarkable. No splenomegaly. Adrenals: Unremarkable. No mass. Kidneys and ureters: Unremarkable. No hydronephrosis. Stomach and bowel: Unremarkable. No obstruction. IMPRESSION: 1. No distention of the biliary tree. 2. No choledochal calculus. 3. No acute findings. REPORT SIGNATURE ON FILE 05/14/2021 (12:25 Eastern Time ) Signed by: Analilia Noel M.D. Reported By Analilia Noel MD on 05/14/21 1225 Signed By Analilia Noel MD on 05/14/21 1225 Date Time CC: Analilia Noel MD; Verónica Leung Techn: MAYITO Trans Dt/Tm: Trans by: DT Prt Dt/Tm: : Total DLP = 0.00 mGy-cm : Total Radiation Dose = 0.0000 mSv Lifetime Dose: 18.2400 mSv Name Value Range Interpretation Code Description Data Alyssa rce(s) Supporting Document(s) ID Date Data Source [id number] 05/01/2021 09:40:00 AM EDT [facility] Name Value Range Interpretation Code Description Data Alyssa rce(s) Supporting Document(s) Hemoglobin A1c [Mass/volume] in Blood 6.3 % 3.8-5.6 Above hig h normal [facility] The following ranges may be u sed for interpretation of results: HGBA1C degree of glucose control: Greater than 8%: Action Suggested * Less than 7%: Goal of Diabetic Therapy Less than 5.6%: NormalFactors such as duration of diabetes, adherence to therapyand the age of the patient should also be considered inassessing the degree of blood glucose control.* High risk of developing exterminator termite complications such asretinopathy, nephropathy, neuropathy, cardiopathy, etc. Some danger of hypoglycemic reaction in Type I diabetics.Some glucose intolerant individuals and "Sub Clinical"diabetics may demonstrate HGBA1C levels in this area. Glucose mean value [Moles/volume] in Blood Estimated f rom glycated hemoglobin 134 mg/dL [facility] An A1C of 7% - the goal of diabetic ther apy - is equivalentto an EAG of 154 mg/dl. ID Date Data Source [id number] 05/01/2021 10:09:00 AM EDT [facility] Name Value Range Interpretation Code Description Data Alyssa rce(s) Supporting Document(s) Thyroxine (T4) free [Mass/volume] in Serum or Plasma 0.73 ng/dL 0.89-1.76 Below low normal [facility] ID Date Data Source [id number] 05/01/2021 10:09:00 AM EDT [facility] Name Value Range Interpretation Code Description Data Alyssa rce(s) Supporting Document(s) Thyrotropin [Units/volume] in Serum or Plasma by Detec tion limit <= 0.005 mIU/L 0.31 u[iU]/mL 0.35-5.50 Below low normal [facility] spital ID Date Data Source [id number] 04/23/2021 11:18:00 AM EDT [facility] Name Value Range Interpretation Code Description Data Alyssa rce(s) Supporting Document(s) Prothrombin Time 13.0 s 12.5-14.3 Normal (applies to non-numeric results) [facility] ([facility], ) Inr 0.96 Normal (applies to non-numeric resul ts) [facility] ([facility], ) THERAPUTIC HUMAN INR VALUES INDICATIONS NORMAL RANGES PROPHYLAXIS/TREATMENT OF: VENOUS THROMBOSIS 2.0-3.0 PULMONARY EMBOLISM 2.0-3.0 PREVENTION OF SYSTEMIC EMBOLISM FROM: TISSUE HEART VALVES 2.0-3.0 ACUTE MYOCARDIAL INFARCTION 2.0-3.0 VALVULAR HEART DISEASE 2.0-3.0 ATRIAL FIBRILLATION 2.0-3.0 MECHANICAL VALVES(HIGH RISK) 2.5-3.5 RECURRENT MYOCARDIAL INFARCTION 2.5-3.5 ID Date Data Source [id number] 04/23/2021 11:18:00 AM EDT [facility]) Name Value Range Interpretation Code Description Data Alyssa rce(s) Supporting Document(s) Gamma glutamyl transferase [Enzymatic activity/volume] in Serum or Plasma 233 U/L 5-55 Above high normal [facility] ([facility]) ID Date Data Source [id number] 04/23/2021 11:18:00 AM EDT [facility] ([facility]) Name Value Range Interpretation Code Description Data Alyssa rce(s) Supporting Document(s) Ast/Sgot 42 U/L 7-37 Above high normal [facility] ([facility]) Alt/SGPT 61 U/L 12-78 Normal (applies to non-numeric resul ts) [facility] ([facility]) Alkaline Phosphatase 148 U/L 45-117 Above high normal [facility] ([facility]) Bilirubin,Total 0.2 mg/dL 0.2-1.0 Normal (applies to non-numeric results) [facility] ([facility]) Total Protein 7.7 GM/DL 6.4-8.2 Normal (applies to non-numeric re sults) [facility] ([facility]) Bilirubin,Direct Laboratory test result 0.0-0.2 Normal ( applies to non-numeric results) [facility] ([facility]) Albumin/Globulin Ratio 0.8 1.2-2.2 Below low normal [facility] ([facility]) Albumin 3.4 GM/DL 3.2-5.2 Normal (applies to non-numeric resul ts) [facility] ([facility]) ID Date Data Source [id number] 04/23/2021 11:18:00 AM EDT [facility] ([facility]) Name Value Range Interpretation Code Description Data Alyssa rce(s) Supporting Document(s) Hepatitis C Virus Shona Index 0.0 INDEX Normal (appli es to non-numeric results) [facility] ([facility]) Negative Not infected with HCV, unless recent infection is suspected or other evidence exists to indicate HCV infection. Hepatitis A Antibody Igm Laboratory test result Normal (applies to non-numeric results) [facility] ([facility]) Hepatitis B Core Antibody Igm Laboratory test result Normal (applies to non- numeric results) [facility] ([facility]) Hepatitis B Surface Antigen Laboratory test result Normal (applies to non- numeric results) [facility]) ID Date Data Source [id number] 04/23/2021 11:18:00 AM EDT [facility]) Name Value Range Interpretation Code Description Data Alyssa rce(s) Supporting Document(s) Ceruloplasmin [Mass/volume] in Serum or Plasma 28.9 mg/dL 1 9.0-39.0 Normal (applies to non-numeric results) [facility]) Performed at: - [facility] [id number] Com[address] Setter: Tang Quintero MD, Phone: [phone] Performed at: [facility] [address] [id number] Comber Setter: Anali Gaitan MD, Phone: [phone] ID Date Data Source [id number] 04/23/2021 11:18:00 AM EDT [facility]) Name Value Range Interpretation Code Description Data Alyssa rce(s) Supporting Document(s) Total Iron Binding Capacity 383 ug/dL 250-450 Norm al (applies to non-numeric results) [facility] ([facility]) Iron (Fe) 53 ug/dL 50-170 Normal (applies to non-numeric resul ts) [facility]) Percent Saturation 13.8 % 13.2-45.0 Normal (applies to non-numer ic results) [facility]) ID Date Data Source [id number] 04/23/2021 11:18:00 AM EDT [facility]) Name Value Range Interpretation Code Description Data Alyssa rce(s) Supporting Document(s) Liver-Kidney Microsomal Shona Laboratory test result 0.0-20.0 Normal (applies to non-numeric results) [facility] ([facility]) Negative 0.0 - 20.0 Equivocal 20.1 - 24.9 Positive >24.9 . LKM type 1 antibodies are detected in patients with autoimmune hepatitis type 2 and in up to 8% of patients with chronic HCV infection. ID Date Data Source [id number] 04/23/2021 11:18:00 AM EDT [facility]) Name Value Range Interpretation Code Description Data Alyssa rce(s) Supporting Document(s) Cytoplasmic Neutrop AB Anca-C Laboratory test result Normal (applies to non- numeric results) [facility] ([facility]) Anca-Atypical Laboratory test result Above high normal [facility] ([facility]) The atypical pANCA pattern has been obse rved in a significant percentage of patients with ulcerative colitis, primary sclerosing cholangitis and autoimmune hepatitis. Perinuclear AB Anca-P Laboratory test result Nor mal (applies to non-numeric results) [facility] ([facility]) The presence of positive fluorescence ex hibiting P-ANCA or C-ANCA patterns alone is not specific for the diagnosis of Luba's Granulomatosis (WG) or microscopic polyangiitis. Decisions about treatment should not be based solely on ANCA IFA results. The International ANCA Group Consensus recommends follow up testing of positive sera with both FL- 3 and MPO-ANCA enzyme immunoassays. As m any as 5% serum samples are positive only by EIA. Ref. AM J Clin Pathol 1999;111:507-513. ID Date Data Source [id number] 04/23/2021 11:18:00 AM EDT [facility] ([facility]) Name Value Range Interpretation Code Description Data Alyssa rce(s) Supporting Document(s) Mitochondria Ab [Units/volume] in Serum Laboratory test result 0 .0-20.0 Normal (applies to non-numeric results) [facility]) Negative 0.0 - 20.0 Equivocal 20.1 - 24.9 Positive >24.9 . Mitochondrial (M2) Antibodies are found in 90-96% of patients with primary biliary cirrhosis. ID Date Data Source [id number] 04/23/2021 11:18:00 AM EDT [facility] ([facility]) Name Value Range Interpretation Code Description Data Alyssa rce(s) Supporting Document(s) Antinuclear Antibodies Direct Laboratory test result Abnormal (applies to non- numeric results) [facility] ([facility]) Anti Double Strand-Dna AB Laboratory test result 0-9 Normal (applies to non- numeric results) [facility] ([facility]) <content>Negative <5</content>
<content>Equivocal 5 - 9</content>
<content>Positive >9</content>
<content></content> LAMINATION BUILDER Antibodies Laboratory test result 0.0-0.9 Normal (a pplies to non-numeric results) [facility] ([facility]) Gallego Antibodies Laboratory test result 0.0-0.9 Normal ( applies to non-numeric results) [facility]) Sjogren's Anti SS-A 7.4 AI 0.0-0.9 Above high normal [facility] ([facility]) Sjogren's Anti SS-B Laboratory test result 0.0-0.9 Elise l (applies to non- numeric results) [facility] ([facility]) Brendan Comment Laboratory test result Normal (applies to non- numeric results) [facility] ([facility]) . Autoantibody Disease Association Condition Frequency -------- --------- Antinuclear Antibody, SLE, mixed connective Direct (BRENDAN-D) tissue diseases -------- --------- dsDNA SLE 40 - 60% -------- --------- Chromatin Drug induced SLE 90% SLE 48 - 97% -------- --------- SSA (Ro) SLE 25 - 35% Sjogren's Syndrome 40 - 70% Lupus 100% -------- --------- SSB (La) SLE 10% Sjogren's Syndrome 30% ------- --------- Sm (anti-Gallego) SLE 15 - 30% ------- --------- LAMINATION BUILDER Mixed Connective Tissue Disease 95% (U1 nRNP, SLE 30 - 50% anti-ribonucleoprotein) Polymyositis and/or Dermatomyositis 20% -------- --------- Scl-70 (antiDNA Scleroderma (diffuse) 20 - 35% topoisomerase) Crest 13% -------- --------- Cassidy-1 Polymyositis and/or Dermatomyositis 20 - 40% -------- --------- Centromere B Scleroderma - Crest variant 80% ID Date Data Source [id number] 04/06/2021 11:07:52 AM EDT [facility]: Nato BeeOB: 2Provider: Trisha Mendoza Yadira: 03/22/2021 Reason For VisitNato Styles is here today for @nd Opinion Established Patient Right Knee. Nato Styles is an established patient here for a new problem and Nato Styles is here for a second opinion. has been struggling with knee pain for some time now but felt increased pain and the sensation of a tear, knee was recently aspirated and lab tested, knee was scoped on 12-22-20 and patient says pain has actually increased since the SX, tried PT and is currently going to Chiro care which provides minimal relief, c/o pain and medial tenderness, start up stiffness, has tried heat//ice with no relief, using Ibuprofen regularly, no brace/sleeve or assistive devices, pain scale of 4 out of 10 most days but can get up to an 8 with activity, entire leg will ache at night causing sleeplessness, cant stand stationary for long w/o increasing pain. Patient is retired. History of Present IllnessCHIEF COMPLAINTRight knee pain.HISTORY OF PRESENT ILLNESSThe patient is a 71-year-old female who presents for a second opinion evaluation of right knee pain. Symptoms of her right knee pain have been present for some time and are worsening. She has had increased pain and a sensation of a tear. The symptoms are affecting activities of daily living, specifically she has start up stiffness. The patient states the pain is a 4/10 most days and aches at night. The symptoms are not affecting activities of daily living. She has tried heat and ice. The patient underwent right knee arthroscopy and partial medial meniscectomy on 12/22/2020, by Dr. Aguilera. She has tried physical therapy. The patient is currently undergoing lawn care technician, which provides no relief. I have seen her in the past for left knee problems. She has had surgery on her right knee in the past. She denies any hip pain or groin pain. No numbness or tingling. She complains of a whole leg ache occasionally. She takes ibuprofen.Medical history is positive for fatty liver; she states she cannot take Tylenol due to her fatty liver disease.The patient is currently retired. Results/DataXRays were ordered, obtained and interpreted today in the office. Indication: pain/dysfunction. Side: Right Site: Knee Views: 3 Views, Standing AP, Lateral and Merchant's Findings: No fractures, dislocations, or other significant abnormalities. Findin gs: Medial degenerative change of a mild degree. X-rays, 3 views, of the left knee were ordered, obtained, and interpreted by me in the office today; AP, lateral and sunrise views. These reveal no obvious lytic or blastic change with some mild patellofemoral osteoarthritis. Joint space looks to be reasonably well preserved with medial and lateral joint lines. Results/Data MRIMRI of the right knee was previously obtained on 11/20/2020. The images were reviewed and interpreted by me and demonstrate a tear of the posterior medial meniscus, chondromalacia patella. AssessmentASSESSMENTRight knee pain and swelling, status post arthroscopy. Plan Start: Diclofenac Sodium 1 % External Gel (Voltaren); APPLY TO LOWER EXTREMITIES, 4GM OF GEL TO AFFECTED AREA 4 TIMES DAILY. DO NOT APPLY MORE THAN 16GM DAILY TO ANY ONE AFFECTED JOINT Rx By: Trisha Mendoza; Dispense: 38 Days ; #:1 X 150 GM Tube; Refill: 0;For: Right knee pain; FIGUEROA = N; Verified Transmission to [id number]; Last Updated By: Future Simple; 03/22/2021 10:33:27 AM Start: Meloxicam 15 MG Oral Tablet; TAKE 1 TABLET DAILY WITH FOOD. MDD:1 Rx By: Trisha Mendoza; Dispense: 0 Days ; #:30 Tablet; Refill: 0;For: Right knee pain; FIGUEROA = N; Verified Transmission to [id number]; Last Updated By: Future Simple; 03/22/2021 10:33:26 AM X-Ray I Knee - 3 views (XRays were ordered, obtained and interpreted today in theoffice. Indication: pain/dysfunction.); Status:Complete; Done: 22Mar2021 Perform:SOS29; Due:[id number]; Last Updated By:Chalino Sadler; 03/22/2021 9:54:10 AM;Ordered; For:Right knee pain; Ordered By:Leo Villalobos;Weight Bearing Status : Weight bearingLaterality: : Right PLANValerie and I discussed her right knee at length. I told her I do not see anything wrong with the knee. I do not think anything wrong was done. I think this is a knee that has taken longer than she would like to heal completely. I would recommend Mobic 15 mg daily, Voltaren gel, and then give it a couple more months. I suspec t it will totally calm down and be fine. I will see her back otherwise as needed. The patient agrees with this plan. Scribed by Haven Magdaleno on 03/22/2021 at 06:13 PM for Trisha Mendoza Signatures Electronically signed by : Haven Magdaleno MA; Mar 22 2021 6:13PM EST (Author) Electronically signed by : Trisha Mendoza M.D.; Mar 23 2021 6:29AM EST Electronically signed by : Trisha Mendoza M.D.; Apr 06 2021 11:07AM EST (Author) Electronically signed by : Trisha Mendoza M.D.; Apr 06 2021 11:07AM EST (Author) Name Value Range Interpretation Code Description Data [facility] Supporting Document(s) ID Date Data Source [id number] 03/23/2021 08:01:40 AM EDT [facility] PCName: Nato RoymanDOB: 2Provider: Trisha MendozaDOS: 03/22/2021 Name Value Range Interpretation Code Description Data [facility]) Supporting Document(s) ID Date Data Source [id number] 03/16/2021 03:44:00 PM EDT [facility] [address] [place] [id number] [phone] NAME SEX PT STATUS ACCOUNT NUMBER NATO STYLES REG REF [id number] ORDERING PHYSICIAN LOCATION MEDICAL RECORD NO. Wendy Henson DO [id number] ATTENDING PHYSICIAN DATE OF DATE OF EXAM/TIME Verónica Leung RPA 1950 03/16/2150 TYPE / EXAM US Abd single organ/quadrant REASON FOR EXAM ELEVATED LFTS COMPARISON: CT of the abdomen from 10/25/2020 TECHNIQUE: Real-time sonography of the abdomen is performed. FINDINGS: GALLBLADDER: Cholecystectomy Common bile duct measures 8.1mm. The sonographic Miller's sign is negative. LIVER: The liver displays fatty infiltration throughout. There is no intrahepatic or extrahepatic biliary dilatation. No focal masses are identified. RIGHT KIDNEY: The right kidney is normal in appearance. It measures approximately 10.1cm in long diameter and demonstrates no calculus or hydronephrosis. IMPRESSION: 1. No biliary ductal dilatation. Cholecystectomy 2. No renal calculus or hydronephrosis on the right. Reported By Myra Ruiz MD on 03/16/21 1544 Signed By Myra Ruiz MD on 03/16/21 1546 Date Time CC: Myra Ruiz MD; Verónica Leung Techn: BUSMI Trans Dt/Tm: Trans by: DT Prt Dt/Tm: : Total DLP = 0.00 mGy-cm : Total Radiation Dose = 0.0000 mSv Lifetime Dose: 18.2400 mSv Name Value Range Interpretation Code Description Data Alyssa rce(s) Supporting Document(s) ID Date Data Source [id number] 02/21/2021 10:20:00 AM EDT [facility] Patient Name: NATO STYLES OB: 1950 Sex: F Pt Unit #: [id number] Location:[facility] Provider: Visit Date/Time: 02/21/21 Primary Insurance: MEDICARE [employer] Secondary Insurance: AARP Intake Vital Signs 02/21/21 10:25 BP 152/84 Respiration 18 Pulse 82 Pulse Oximetry (%) 97 Oxygen Delivery Method room air Intake Visit Reasons: Post op visit (orthopedics) Is patient in pain?: Yes Pain scale (1-10): 2 Allergies No Known Food Allergies Allergy (Verified 02/21/21 11:10) bupropion [From WELLBUTRIN] Adverse Reaction (Intermediate, Verified 02/21/21 11:10) Depression Medications - Last Reconciled 02/21/21 by Malik Disla MD alprazolam 0.25 mg PO TID PRN MDD 3TABS atorvastatin 40 mg PO QPM cholecalciferol (vitamin D3) 2,000 units PO DAILY clonidine HCl TAKE 1 TABLET AT BEDTIME coenzyme Q10 (Co Q-10) 200 mg PO DAILY cyanocobalamin (vitamin B-12) 1,000 mcg PO DAILY famotidine TAKE 1 TABLET TWICE A DAY letrozole (Femara) 2.5 mg PO QDAY levothyroxine (Synthroid) 75 mcg PO DIRECTED levothyroxine (Synthroid) 50 mcg PO DIRECTED omeprazo le 40 mg PO QDAY venlafaxine ER 75 mg PO BID HIV Testing Offer - ages 13- 64 Requirement for HIV testing offer been met?: Patient reports past refusal Coronavirus Screening Screening Are you currently positive or on isolation for COVID ?: No Do you have any NEW signs of one or more of the following?: no symptoms Do you have NEW signs of at least two of the following?: no symptoms HPI Additional HPI HPI Details: Patient is a 70 year old female, here for a 8 week post-op of her arthroscopy right knee with elliptical excision of flap tear midportion right medial meniscus. Surgery performed on 12/22/20. Patient was last seen was having increasing complaints of pain. She was placed on Medrol Dosepak which she states gave her temporizing benefit. Formal physical therapy was also instituted. Patient is having significant improvement in respect to her right knee since the institution of formal physical therapy. Patient presents to clinic without assistive devices. 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 CAD (coronary artery disease) (04/16/18) Constipation due to slow transit Coronary atherosclerosis of [place] coronary vessel (12/06/13) Diverticulitis GERD without esophagitis (04/23/18) Hypokalemia (10/09/18) Insomnia Left ventricular diastolic dysfunction Lobular carcinoma of breast, stage 1 Lymphedema of left lower extremity Mitral regurgitation Mixed hyperlipidemia (12/06/13) Moderate recurrent major depression Obesity Obstructive sleep apnea syndrome Plantar fasciitis, left (10/13/18) Rosacea Tricuspid regurgitation Vitamin D deficiency Surgical History H/O arthroscopy of right knee History of ankle surgery History of arthroscopy of left knee History of bilateral mastectomy History of cardiac cath History of cholecystectomy History of colonoscopy (08/11/14) History of hysterectomy History of left breast biopsy History of right knee surgery History of sinus surgery Status post tubal ligation Family History Mother No problems noted. Father Diabetes Congestive heart failure, Onset Age: 82 Hypertension AUNT No problems noted. UNCLES No problems noted. UNCLES No problems noted. Social History Does the Patient have a Healthcare Proxy: No Does Patient have a DNR?: No Does Patient have a Living Will?: No Does the Patient have a MOLST?: No Advance Directives on File or in chart?: No adopted: No household members: spouse housing: house marital status: lives independently: Yes highest education level completed: high school graduate service: No current occupational status: retired Hx Recent Travel (where): No well- balanced diet: daily caffeine: Yes (1 D. SODA/DAY) Type: carbonated beverages and coffee Number of servings: 2 high-fat food intake: 0-1 times daily daily servings fruits/ve-4 daily servings of milk/calcium: 2-4 eating out: 1-3 times/week what type of physical activity do you participate in?: walking frequency: 3-4 times per week duration: 30-45 minutes/day Smoking Status: Never smoker alcohol intake: never substance use type: does not use rodney/denominational: Voodoo special rodney needs: Yes seatbelt use: always drive intox or ride w/ intox frontload driver: No water heater temp set < 120 deg: Yes working smoke detector in home: Yes fire extinguisher in home: Yes carbon monox detector in home: Yes firearms in home: Yes firearms unloaded and locked: Yes do you feel safe at home: Yes victim of physical abuse: No victim of emotional abuse: No victim of sexual abuse: No would you like helpful sources: No Exam Const General: cooperative, healthy appearing, comfortable, well developed and well groomed Nutritional Appearance: average body habitus Orientation: alert, awake and oriented x3 HENMT Head: normal to inspection, normocephalic and atraumatic Eyes General: appearance normal, both eyes and all related structures Pupils: PERRL Neck Neck: normal visual inspection, full ROM and nontender Chest Chest: normal inspection of the chest Resp Effort Inspection: normal respiratory effort Skin Lesions: no lesions Rashes: no rashes Trauma: no lacerations or abrasions Neuro General: patient alert, patient awake and patient oriented x3 Cognition: normal cognition Speech: speech normal Motor: muscle tone normal throughout Extrem Other: Examination reveals well-healed arthroscopic portals. Patient has full range of motion of the right knee. There continues to be mild to moderate medial joint line tenderness. She has no right knee effusion and has good quadriceps tone and strength. Ipsilateral right hip exam is normal. Lower back exam is normal. Neurosensory and motor testing of the right lower extremity remains unremarkable. Peripheral pulses on the affected side are intact. Homans test is negative. Psych Appearance: grossly normal Thought Process: normal Thought Content: normal Insight: insight good Assessment Plan Assessment Plan (1) Encounter for orthopedic follow-up care: Code(s): Z47.89 - Encounter for other orthopedic aftercare (2) Acute medial meniscus tear of right knee: Status: Acute Code(s): S83.241A - Other tear of medial meniscus, current injury, right knee, initial encounter SNOMED Code(s): 111275199 Category: Medical Qualifiers: Encounter type: subsequent encounter Qualified Code(s): S83.241D - Other tear of medial meniscus, current injury, right knee, subsequent encounter Plan: Patient has improved with the recent institution of formal physical therapy. She still ambulates with a limp but is no longer using assistive devices and describes her pain as being 2 or 3 versus 9 or 10. She takes Naprosyn for discomfort. She had to stop Tylenol due to elevations in her liver enzymes. Patient will continue with therapy and follow-up with us in several weeks time to gauge response to treatment. All questions were answered. Coding Level of Care Code 62851 Global Follow-Up Diagnoses Encounter for orthopedic follow-up care Z47.89 Acute medial meniscus tear of right knee S83.241D Encounter type: s ubsequent encounter <Electronically signed by Malik Disla MD> 02/21/21 1115 Name Value Range Interpretation Code Description Data Alyssa rce(s) Supporting Document(s) ID Date Data Source [id number] 02/20/2021 01:52:00 PM EDT [facility] Name Value Range Interpretation Code Description Data Alyssa rce(s) Supporting Document(s) Urea nitrogen [Mass/volume] in Serum or Plasma 17 mg/dL 9-23 [facility] Sodium [Moles/volume] in Serum or Plasma 142 mmol/L 132-146 [facility] Potassium [Moles/volume] in Serum or Plasma 4.1 mmol/L 3.5-5.5 [facility] Chloride [Moles/volume] in Serum or Plasma 109 mmol/L 99-109 [facility] Carbon dioxide, total [Moles/volume] in Serum or Plasma 26 mmol/L 20 -31 [facility] Anion gap in Serum or Plasma 11 mmol/L 8-16 [facility] Glucose [Mass/volume] in Serum or Plasma 131 mg/dL 74-106 Above high normal [facility] Creatinine 0.7 mg/dL 0.5-1.[address] [facility] Glomerular filtration rate/1.73 sq M.pre dicted [Volume Rate/Area] in Serum or Plasma Greater Than 60 ABOVE 60 [facility] Alanine aminotransferase [Enzymatic acti vity/volume] in Serum or Plasma by With P-5'-P 137 U/L 10-49 Above high normal Health system Aspartate aminotransferase [Enzymatic ac tivity/volume] in Serum or Plasma by With P-5'-P 97 U/L 0-33 Above high normal [facility] Alkaline phosphatase [Enzymatic activity/volume] in Serum or Plasma 368 U/L 45-129 Above high normal [facility] @Review & document.Repeated by: Sparkle Rojas 02/20/21 1352.Result Confirmation: 373 U/L Calcium [Mass/volume] in Serum or Plasma 9.2 mg/dL 8.5-10.1 N [facility] Bilirubin.total [Mass/volume] in Serum or Plasma 0.3 mg/dL 0.3-1.2 N [facility] Albumin [Mass/volume] in Serum or Plasma by Bromocresol purple (BCP) dye binding method 3.5 g/dL 3.2-4.8 N [facility] Protein [Mass/volume] in Serum or Plasma 7.4 g/dL 5.7-8.2 N [facility] ID Date Data Source [id number] 02/01/2021 10:47:00 AM EDT [facility] Name Value Range Interpretation Code Description Data Alyssa rce(s) Supporting Document(s) Hemoglobin A1c [Mass/volume] in Blood 6.2 % 3.8-5.6 Above hig h normal [facility] The following ranges may be u sed for interpretation of results: HGBA1C degree of glucose control: Greater than 8%: Action Suggested * Less than 7%: Goal of Diabetic Therapy Less than 5.6%: NormalFactors such as duration of diabetes, adherence to therapyand the age of the patient should also be considered inassessing the degree of blood glucose control.* High risk of developing mcfp complications such asretinopathy, nephropathy, neuropathy, cardiopathy, etc. Some danger of hypoglycemic reaction in Type I diabetics.Some glucose intolerant individuals and "Sub Clinical"diabetics may demonstrate HGBA1C levels in this area. Glucose mean value [Moles/volume] in Blood Estimated f rom glycated hemoglobin 131 mg/dL [facility] l An A1C of 7% - the goal of diabetic ther apy - is equivalentto an EAG of 154 mg/dl. ID Date Data Source [id number] [facility] Value Range Interpretation Code Description Data Alyssa rce(s) Supporting Document(s) Thyroxine (T4) free [Mass/volume] in Serum or Plasma 1.04 ng/dL 0.89- 1.76 N [facility] ID Date Data Source [id number] 02/07/2021 05:31:00 PM EDT [facility] Name Value Range Interpretation Code Description Data Alyssa rce(s) Supporting Document(s) Triiodothyronine (T3) [Moles/volume] in Serum or Plasma 143 ng/dL 76 -181 [facility] THIS TEST WAS PERFORMED AT:[email or web address] [address] [id number] MERATI,MD ID Date Data Source [id number] 02/01/2021 11:35:00 AM EDT [facility] Name Value Range Interpretation Code Description Data Alyssa rce(s) Supporting Document(s) Thyrotropin [Units/volume] in Serum or Plasma by Detec tion limit <= 0.005 mIU/L 0.11 u[iU]/mL 0.35-5.50 Below low normal [facility] spital @Review & document.Repeated by: Sparkle Rojas 02/01/21 1134.Result Confirmation: 0.11 uIU/mL ID Date Data Source [id number] 02/07/2021 05:31:00 PM EDT [facility] Name Value Range Interpretation Code Description Data Alyssa rce(s) Supporting Document(s) Thyroid stimulating immunoglobulins [Units/volume] in Serum 406 % baseline <140 Above high normal [facility] Thyroid stimulating immunoglobulins (TSI ) can engagethe TSH receptors resulting in hyperthyroidism inGraves' disease patients. TSI levels can be useful inmonitoring the clinical outcome of Graves' disease aswell as assessing the potential for hyperthyroidismfrom maternal- transfer. TSI results greater thanor equal to (>=) 140% of the Reference Control areconsidered positive.NOTE:A serum TSH level greater than 350 micro-InternationalUnits/mL can interfere with the TSI bioassay andpotentially give false positive results.Patients who are and are suspected of havinghyperthyroidism should have both TSI and humanChorionic Gonadotropin(hCG) tests measured. A serumhCG level greater than 40,625 mIU/mL can interferewith the TSI bioassay and may give false negativeresults. In these patients it is recommended thata second TSI be obtained when the hCG concentrationfalls below 40,625 mIU/mL (usually after rgjzjgwclxubp98-wdgve gestation).The analytical performance characteristics of thisassay have been determined by [facility] [place], [place]. The modificationshave not been cleared or approved by the FDA. Thisassay has been validated pursuant to the CLIAregulations and is used for clinical p urposes.THIS TEST WAS PERFORMED AT:[id number] [place] [address]XFOJUFTPONCHO HARRIS MD,PHD ID Date Data Source [id number] 02/07/2021 05:31:00 PM EDT [facility] Name Value Range Interpretation Code Description Data Alyssa rce(s) Supporting Document(s) Thyroid Peroxidase Abs 68 [IU]/mL <9 Above high normal [facility] THIS TEST WAS PERFORMED AT:[email or web address] [address] [id number] MERATI,MD ID Date Data Source [id number] 02/01/2021 11:51:00 AM [facility] @ADD ON Name Value Range Interpretation Code Description Data Alyssa rce(s) Supporting Document(s) Urea nitrogen [Mass/volume] in Serum or Plasma 16 mg/dL 9-23 N [facility] Sodium [Moles/volume] in Serum or Plasma 142 mmol/L 132-146 [facility] Potassium [Moles/volume] in Serum or Plasma 4.2 mmol/L 3.5-5.5 [facility] Chloride [Moles/volume] in Serum or Plasma 109 mmol/L 99-109 [facility] Carbon dioxide, total [Moles/volume] in Serum or Plasma 25 mmol/L 20 -31 [facility] Anion gap in Serum or Plasma 12 mmol/L 8-16 [facility] Glucose [Mass/volume] in Serum or Plasma 100 mg/dL 74-106 N [facility] Creatinine 0.6 mg/dL 0.5-1.[address] [facility] Glomerular filtration rate/1.73 sq M.pre dicted [Volume Rate/Area] in Serum or Plasma Greater Than 60 ABOVE 60 [facility] Alanine aminotransferase [Enzymatic acti vity/volume] in Serum or Plasma by With P-5'-P 65 U/L 10-49 Above high normal Health system Aspartate aminotransferase [Enzymatic ac tivity/volume] in Serum or Plasma by With P-5'-P 42 U/L 0-33 Above high normal [facility] Alkaline phosphatase [Enzymatic activity/volume] in Serum or Plasma 213 U/L 45-129 Above high normal [facility] Repeated by: Keiko Balderas 02/01/21 1151.R esult Confirmation: 206 H U/L Calcium [Mass/volume] in Serum or Plasma 9.2 mg/dL 8.5-10.1 N [facility] Bilirubin.total [Mass/volume] in Serum or Plasma 0.2 mg/dL 0.3-1.2 Below low normal [facility] Albumin [Mass/volume] in Serum or Plasma by Bromocresol purple (BCP) dye binding method 3.7 g/dL 3.2-4.8 N [facility] ital Protein [Mass/volume] in Serum or Plasma 7.6 g/dL 5.7-8.2 [facility] ID Date Data Source [id number] 01/25/2021 03:21:59 PM EDT [facility] Name Value Range Interpretation Code Description Data Alyssa rce(s) Supporting Document(s) *Follow Up Visit GUILLE v1 [facility] ZBIOOp5fPaWMUoMph6teEIfgGJTzl0YjBAg5DV4YO2OhQSvihgXnLXMuefAqH3MxLYIaFAFRLHriKXDd BMQ [file] +0yrSir0GLzqlt30FT7gtDeeA0DKqDaIUf2JYfD DRfIWbFMvqtXaH82PtBGK68k41vNQq0sovatfMwi3437ALVO4c/BWbrc/s6hrB8mFo/YY6CBPMLqvw18 4ERHuEnfC9sthxbzc3yvGaFT72U47a9vowEbbKtKpkGWMRMin9FrsMDNzn8gGoSBj/AQUZQ9Q1C1XiLb tx98M6a0ZC2PLCMito9hxgbmZ7oljImInD4Ho+e4Ge doMjFKBBNWcuAypKWWxJLv+1siRNoShWF5U5HZDe5+FcwlXcGKj0ViumNhOEI0zAvcCQqHyOL0sVUndq nwVITO5GzE2R3mrfYteIf15T9HevhJEwcQK56SnYG3tEJ8+pMq3NSolE6jkLSmFO37xoPrLTWTf4afrc ios+SkalyG0fK4mydMFpR7lOQ/lcWTr/WDQFnJPy+Q nsaFI6OfM4YlZYRqL+r2q+jUrwx2DcEi/HrVD0HQ2gYfN2Hh/3ozi6442C8t8KR9XHcvBw3MqK7RD4YH IpH1D9T8a+cWqyhZf/Zy3vYlx3fOKzroRi8kUOnnaClVyCUoodYiG+MnTKLU3JmZ7Q9MU0h5TUIK4m+D 8k2Q3k/N3m7BrjhL7qKWZQRVIdAGTNIaQSXFY+jzJs [file] RM5P5+ayWDFTmo0SxIf+1zQEmaB2RS6+SasZd+N1SjUUuRk3d+OX/+Maria De Jesus/dc+tgcQU193xVTKR95f46Kv [file] j0ScumA3kcOyMDefVJLpGpLEWdBzBB5UXEv= ID Date Data Source [id number] 01/25/2021 10:12:47 PM EDT [facility] Name Value Range Interpretation Code Description Data Alyssa rce(s) Supporting Document(s) 25 HYDROXY VIT D @ 54 ng/mL (31-100) [facility] [place] [facility] A REVIEW OF THE LITERATURE SUGGESTS THEF OLLOWING RANGES FOR THE CLASSIFICATIONOF 25-OH VITAMIN D STATUS: VITAMIN D STATUS 25-OH VITAMIN D DEFICIENCY <20 NG/MLINSUFFICIENCY 20-30 NG/MLSUFFICIENCY 31 - 100 NG/MLTOXICITY > 100 NG/ML A PEDIATRIC REFERENCE RANGE HAS NOT BEENESTABLISHED USING THIS METHOD. ID Date Data Source [id number] 01/22/2021 04:08:00 PM EDT [facility] Therapy Department NATO STYLES : 1950 Date: 01/22/21 [id number] Attending: Scott Curtis PA-C PT Outpatient Evaluation - Evaluation/Subjective Diagnosis:: R knee s/p scope Impairments: Pain, Decreased AROM, Decreased Strength, Impaired ambulation, Impaired balance, Decreased endurance, Decreased joint mobility - Subjective Subjective: The patient presents to PT s/p 1 month past R knee scope for meniscus tear removal. Her surgery was on 01/26/21. She reports that she has continued to have pain. She had a similar surgery years ago, and recalls being up and going in about 3 days. This has been one month, and she still isin pain; she is limiping, and she has pain on the inside of the R knee shooting into the center of the knee cap. She also has a lot of tension in her R calf. 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 She cannot stand to make a meal, as that is too long for her to be on her feet. She does have an appointment with [facility] next week, but she thinks that she will move it back a little, as she is just now starting therapy. She resides with her in a one story home, with a basement. She has 2 steps to enter her home from the entrance way. She has increased pain with asending and descending slopes and hills. Her goal for therapy is to be free of the pain, and to walk normally. - Objective Objective: AROM: R knee flexion 118 deg, L knee flexion 125 deg; knee extension R and L WNLs; hip and ankle motion bilaterally was symmetrical and WNLs. Strength: R knee flexion 3- /5, L knee flexion 4-/5; R VMO/hip adductors 3/5; R knee extension in neutral 3+/5, L knee extension 4/5; hip flexion R 3+/5, L 4/5. Special tests: McConnel testing positive at 30, 60, and 90 deg of knee flexion, at 0 and 110 deg of flexion it was negative; Lenin caused slight pain with medial meniscus testing; valgus and varus stress testing, anterior drawer and posterior sag were all negative. Yahaira testing positive on the R. Single limb stance testing: pt unable to perform on the RLE. Palpation: no palpable edema present on the R knee region; tenderness along R medial tibiofemoral joint area; tenderness with trigger points and increased muscle tension along the R lateral thigh and the R gastrocs soleus complex. Gait: pt displays decreased knee, hip, and ankle movement on the R LE while ambulating Assessment: Medical diagnosis: s/p R knee scope. PT diagnosis: PPP 4D: impaired joint mobility, motor function, muscle performance, and ROM associated with connective tissue dysfunction. Impairments: pain, decreased strength, mild loss of R knee flexion AROM, palpable tenderness, muscletension, trigger points, decreased ITB length on the R, VMO weakness and patellar maltracking. Functional limitations: gait deviations, decreased tolerance to walking and standing Plan: The patient will be seen 2x/week for ther-ex ROM, gait, and strengthening exercises for R knee; VMO exercises; proprioception and stability, and instruction in home exercises. Manual therapy will be used for trigger point release treatment and for muscle relaxation. Interventions: Therapeutic exercise, Gait Training, Manual therapy, Neuromuscular fasciliation, Patient education - Plan of Care Short Term Goal #1: In 2-3 weeks: the patient will display increased strength in the R LE for VMO and hip adductors to at least 3+/5, to improve patellar tracking and decrease medial knee pain, to allow the patient to stand for long enough to complete meal preparation. Short Term Goal #2: In 2-3 weeks: the patient will display increased flexion/extension of the R LE while walking, to decrease strain on both LEs, and improve her walking tolerance. Short Term Goal #3: In 2-3 weeks: the patient will display increased length of L ITB, to allow for full R LE hip adduction to decrease pulling on R patella and decrease knee pain. exterminator termite goal #1: In 4-6 weeks: the patient will display increased strength in the R knee and hip to at least 4-/5, with muscle balance present, to allow for proper patellar tracking to decrease knee pain. Penitentiary Goal #2: In 4-6 weeks: the patient will have no pain in the R knee greater than 1/10, to allow her to complete normal daily tasks. halfway goal #3: In 4-6 weeks: the patient will have no trigger points and muscle tension in the Rhip and knee regions, to allow for proper patellar tracking and knee motion while walking. Frequency: 2x/week Rehab Potential: Good Visits Requested: 12 Expiration date of orders:: 03/04/21 Therapist Yomaira Orozco 01/22/21 1608 I certify this plan of care Cosigner Date Time LAST EDIT: Name Value Range Interpretation Code Description Data Alyssa rce(s) Supporting Document(s) ID Date Data Source [id number] 01/15/2021 03:33:00 PM EDT [facility] Patient Name: NATO STYLES OB: 1950 Sex: F Pt Unit #: [id number] Location:AMB.ORTHO Provider: Visit Date/Time: 01/15/21 Primary Insurance: MEDICARE [employer] Secondary Insurance: AARP Intake Vital Signs 01/15/21 15:50 BP 152/86 Respiration 16 Pulse 84 Pulse Oximetry (%) 98 Oxygen Delivery Method room air Intake Visit Reasons: increase in pain and unable to bear weight Is patient in pain?: Yes Pain scale (1-10): 8 Allergies No Known Food Allergies Allergy (Verified 01/03/21 10:50) bupropion [From WELLBUTRIN] Adverse Reaction (Intermediate, Verified 01/03/21 10:50) Depression HIV Testing Offer - ages 13-64 Requirement for HIV testing offer been met?: Patient reports past refusal Coronavirus Screening Screening Are you currently positive or on isolation for COVID ?: No Do you have any NEW signs of one or more of the following?: no symptoms Do you have NEW signs of at least two of the following?: no symptoms HPI Additional HPI HPI Details: Patient is a 70 year old female, here for a 4 week post-op of her arthroscopy right knee with elliptical excision of flap tear midportion right medial meniscus. Surgery performed on 12/22/20. She presents to the office today for an unscheduled visit due to increased pain and inability to fully bear weight on the leg without severe pain. 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 CAD (coronary artery disease) (04/16/18) Constipation due to slow transit Coronary atherosclerosis of [place] coronary vessel (12/06/13) Diverticulitis GERD without esophagitis (04/23/18) Hypokalemia (10/09/18) Insomnia Lobular carcinoma of breast, stage 1 Lymphedema of left lower extremity Mixed hyperlipidemia (12/06/13) Moderate recurrent major depression Obesity Obstructive sleep apnea syndrome Plantar fasciitis, left (10/13/18) Rosacea Vitamin D deficiency Surgical History H/O arthroscopy of right knee History of ankle surgery History of arthroscopy of left knee History of bilateral mastectomy History of cardiac cath History of cholecystectomy History of colonoscopy (08/11/14) History of hysterectomy History of left breast biopsy History of right knee surgery History of sinus surgery Status post tubal ligation Family History Mother No problems noted. Father Diabetes Congestive heart failure, Onset Age: 82 Hypertension AUNT No problems noted. UNCLES No problems noted. UNCLES No problems noted. Social History Does the Patient have a Healthcare Proxy: No Does Patient have a DNR?: No Does Patient have a Living Will?: No Does the Patient have a MOLST?: No Advance Directives on File or in chart?: No adopted: No household members: spouse housing: house marital status: lives independently: Yes highest education level completed: high school graduate service: No current occupational status: retired Hx Recent Travel (where): No well-balanced diet: daily caffeine: Yes (1 D. SODA/DAY) Type: carbonated beverages and coffee Number of servings: 2 high-fat food intake: 0-1 times daily daily servings fruits/ve-4 daily servings of milk/calcium: 2-4 eating out: 1-3 times/week what type of physical activity do you participate in?: walking frequency: 3-4 times per week du ration: 30-45 minutes/day Smoking Status: Never smoker alcohol intake: never substance use type: does not use rodney/denominational: Voodoo special rodney needs: Yes seatbelt use: always drive intox or ride w/ intox frontload driver: No water heater temp set < 120 deg: Yes working smoke detector in home: Yes fire extinguisher in home: Yes carbon monox detector in home: Yes firearms in home: Yes firearms unloaded and locked: Yes do you feel safe at home: Yes victim of physical abuse: No victim of emotional abuse: No victim of sexual abuse: No would you like helpful sources: No Exam Extrem Other: Examination right knee and lower extremity shows some persistent swelling of the right knee. Persistent severe medial joint line tenderness. Incisional scars are fully healed. She is able to extend the knee almost to 0 degrees and has greater than 90 degrees of active knee flexion. She is ambulating with an antalgic gait however presents with no assistive device. She has intact sensation of right knee and right lower extremity with intact peripheral pulses. Assessment Plan Assessment Plan (1) Acute medial meniscus tear of right knee: Status: Acute Code(s): S83.241A - Other tear of medial meniscus, current injury, right knee, initial encounter SNOMED Code(s): 063379052 Category: Medical Qualifiers: Encounter type: subsequent encounter Qualified Code(s): S83.241D - Other tear of medial meniscus, current injury, right knee, subsequent encounter Plan - Scott Curtis PA-C: Patient experiencing more pain than typically seen after knee arthroscopy with medial meniscus tear debridement. We discussed treatment options and we will initiate a Medrol Dosepak to help with paincontro l. Patient will review this medication with her pharmacist. She has had prednisone in the past and has tolerated this well. Patient is scheduled to start formal physical therapy tomorrow. Patient did well follow-up as previously arranged in approximately 2 to 3 weeks. Orders Other Medications: New: methylprednisolone 4 mg PO PER PKG DIR 21 ea 0RF Coding Level of Care Code 10349 Global Follow-Up Diagnoses Acute medial meniscus tear of right knee S83.241D Encounter type: subsequent encounter <Electronically signed by Scott Muñoz> 01/15/21 1730 Name Value Range Interpretation Code Description Data Alyssa rce(s) Supporting Document(s) ID Date Data Source [id number] 01/03/2021 10:27:00 AM EDT [facility] Patient Name: NATO STYLES OB: 1950 Sex: F Pt Unit #: [id number] Location:[facility] Provider: Visit Date/Time: 01/03/21 Primary Insurance: MEDICARE [employer] Secondary Insurance: AARP Intake Vital Signs 01/03/21 10:30 BP 140/82 Respiration 18 Pulse 71 Pulse Oximetry (%) 95 Intake Visit Reasons: Post op visit (orthopedics) Is patient in pain?: Yes Pain scale (1-10): 5 Allergies No Known Food Allergies Allergy (Verified 01/03/21 10:50) bupropion [From WELLBUTRIN] Adverse Reaction (Intermediate, Verified 01/03/21 10:50) Depression Medications - Last Reconciled 01/03/21 by Malik Disla MD alprazolam 0.25 mg PO TID PRN MDD 3TABS atorvastatin 40 mg PO QPM cholecalciferol (vitamin D3) 2,000 units PO DAILY clonidine HCl TAKE 1 TABLET AT BEDTIME coenzyme Q10 (Co Q-10) 200 mg PO DAILY cyanocobalamin (vitamin B-12) 1,000 mcg PO DAILY famotidine TAKE 1 TABLET TWICE A DAY levothyroxine (Synthroid) 75 mcg PO DIRECTED levothyroxine (Synthroid) 50 mcg PO DIRECTED omeprazole 40 mg PO QDAY oxycodone-acetaminophen 5-325 mg 1 tab PO Q4H PRN MDD 6 venlafaxine ER 75 mg PO BID HIV Testing Offer - ages 13-64 Requirement for HIV testing offer been met?: Patient reports past refusal Coronavirus Screening Screening Are you currently positive or on isolation for COVID ?: No Do you have any NEW signs of one or more of the following?: no symptoms Do you have NEW signs of at least two of the following?: no symptoms HPI Additional HPI HPI Details: Patient is a 70 year old female, here for a 2 week post op of the Arthroscopy right knee with elliptical excision of flap tear midportion right medial meniscus. Surgery performed on 12/22/20. Patient presents to clinic today without crutch or cane support. She is ambulating with anormal gait. She still describes achiness and discomfort at night. 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 CAD (coronary artery disease) (04/16/18) Constipation due to slow transit Coronary atherosclerosis of [place] coronary vessel (12/06/13) Diverticulitis GERD without esophagitis (04/23/18) Hypokalemia (10/09/18) Insomnia Lobular carcinoma of breast, stage 1 Lymphedema of left lower extremity Mixed hyperlipidemia (12/06/13) Moderate recurrent major depression Obesity Obstructive sleep apnea syndrome Plantar fasciitis, left (10/13/18) Rosacea Vitamin D deficiency Surgical History H/O arthroscopy of right knee History of ankle surgery History of arthroscopy of left knee History of bilateral mastectomy History of cardiac cath History of cholecystectomy History of colonoscopy (08/11/14) History of hysterectomy History of left breast biopsy History of right knee surgery History of sinus surgery Status post tubal ligation Family History Mother No problems noted. Father Diabetes Congestive heart failure, Onset Age: 82 Hypertension AUNT No problems noted. UNCLES No problems noted. UNCLES No problems noted. Social History Does the Patient have a Healthcare Proxy: No Does Patient have a DNR?: No Does Patient have a Living Will?: No Does the Patient have a MOLST?: No Advance Directives on File or in chart?: No adopted: No household members: spouse housing: house marital status: lives independently: Yes highest education level completed: high school graduate service: No current occupational status: retired Hx Recent Travel (where): No well-balanced diet: daily caffeine: Yes (1 D. SODA/DAY) Type : carbonated beverages and coffee Number of servings: 2 high-fat food intake: 0-1 times daily daily servings fruits/ve-4 daily servings of milk/calcium: 2-4 eating out: 1-3 times/week what type of physical activity do you participate in?: walking frequency: 3-4 times per week duration: 30-45 minutes/day Smoking Status: Never smoker alcohol intake: never substance use type: does not use rodney/denominational: Voodoo special rodney needs: Yes seatbelt use: always drive intox or ride w/ intox frontload driver: No water heater temp set < 120 deg: Yes working smoke detector in home: Yes fire extinguisher in home: Yes carbon monox detector in home: Yes firearms in home: Yes firearms unloaded and locked: Yes do you feel safe at home: Yes victim of physical abuse: No victim of emotional abuse: No victim of sexual abuse: No would you like helpful sources: No Exam Const General: cooperative, healthy appearing, comfortable, well developed and well groomed Nutritional Appearance: average body habitus Orientation: alert, awake and oriented x3 HENMT Head: normal to inspection, normocephalic and atraumatic Eyes General: appearance normal, both eyes and all related structures Pupils: PERRL Neck Neck: normal visual inspection, full ROM and nontender Chest Chest: normal inspection of the chest Resp Effort Inspection: normal respiratory effort Skin Lesions: no lesions Rashes: no rashes Trauma: no lacerations or abrasions Neuro General: patient alert, patient awake and patient oriented x3 Cognition: normal cognition Speech: speech normal Motor: muscle tone normal throughout Extrem Other: Examination reveals well-healed arthroscopic portals about the right knee. Homans test remains negative. She is regained full range of motion of the right knee joint. She has mild medial joint line tenderness. She has no right knee effusion and has good quadriceps tone and strength. Soft tissue swelling about the right knee is minimal. Psych Appearance: grossly normal Thought Process: normal Thought Content: normal Insight: insight good Assessment Plan Assessment Plan (1) Encounter for orthopedic follow-up care: Code(s): Z47.89 - Encounter for other orthopedic aftercare (2) Acute medial meniscus tear of right knee: Status: Acute Code(s): S83.241A - Other tear of medial meniscus, current injury, right knee, initial encounter SNOMED Code(s): 430525837 Category: Medical Qualifiers: Encounter type: subsequent encounter Qualified Code(s): S83.241D - Other tear of medial meniscus, current injury, right knee, subsequent encounter Plan - Malik Disla MD: Patient is now 12 days following arthroscopic partial right medial meniscectomy. Patient's picturesobtained during the surgical procedure were reviewed with her. She was noted to have no significantarticular changes within the right knee joint. She was reassured that her present symptoms should improve with time. Patient will continue with activity to tolerance and alternate Tylenol and ibuprofen as needed. Her sutures were removed. Follow-up will be arranged with us in 3 weeks. Coding Level of Care Code 06566 Global Follow-Up Exam Expanded Problem Focused Diagnoses Encounter for orthopedic follow-up care Z47.89 Acute medial meniscus tear of right knee S83.241D Encounter type: subsequent encounter <Electronically signed by Malik Disla MD> 01/03/21 1053 Name Value Range Interpretation Code Description Data Alyssa rce(s) Supporting Document(s) ID Date Data Source [id number] 12/22/2020 03:35:00 PM EDT [facility] Name: NATO STYLES : 1950 Age: 70 MR#: [id number] Admit Date: 12/22/20 Provider: Malik Disla MD Room #: Consulting Provider: Dictation Date: 12/22/20 Operative Note Orthopedic Operative Report Date of service Date of service:: 12/22/20 Procedure start time:: 15:04 Operative Note Orthopaedic Surgeons:: Malik Disla MD Assisting:: Scott Curtis PA-C Anesthesiologist(s): Other Anesthesiologist Anesthesia Type: General Pre-Operative Diagnosis: T flap type tear involving midportion of right medial meniscus Post-Operative Diagnosis: same as pre-op Procedure: Arthroscopy right knee with elliptical excision of flap tear midportion right medial meniscus Findings: See operative report EBL (ml): [address]?: Yes Packing in place?: No Packing: No Packing Drain: No Drain Tourniquet:: Tourniquet mmHg: (300 mmHg for 30 minutes) Specimens: No Specimens Complications: No Post-Operative Condition: Good Narrative: Patient had preoperative MRI scan which showed a flap type tear involving the midportion of the right medial meniscus. Patient failed to improve with conservative management. Patient was taken to the preop holding area and subsequently taken to the operating room theater. She was giventhe appropriate dosage of IV Ancef. A tourniquet and thigh smith were applied to the right upper thigh. The leg was circumferentially prepped and draped in usual manner after general anesthetic had been administered. Surgical timeout was taken. The right leg was exsanguinated and the tourniquet was elevated to pressure of 300 mmHg for 30 minutes. An inflow portal was established inthe superomedial patellar pouch of the right knee. Arthroscopic portals were established on either side the patellar tendon at the level of the joint line anteriorly. The knee was visualized initially through the anterolateral portal later through the anteromedial portal. Patient was notedto have a normal- appearing patellofemoral joint. There is no significant wear either on the undersurface of the patella and no significant wear noted within the femoral tro chlear groove. The medial lateral gutters were free of pathology. The lateral joint line was visualized and noted to be pristine. There is no lateral meniscal pathology and the articular surfaces of the lateral tibial plateau and lateral femoral condyle were normal. The intercondylar notch revealed intact intracruciate ligament. The medial joint line was visualized through the anterolateral portal. There was noted to be a flap type tear involving the midportion of the medial meniscus. The articular surfaces of the medial femoral condyle and tibial plateau were uninvolved. Using a 4 -0 oscillating Arthrex shaver as well as a biter, the torn portion of meniscus was excised. The meniscus was contoured so that there was a smooth demarcation between more normal-appearing meniscus posteriorly and more normal-appearing meniscus anteriorly. Elliptical portion of meniscus was removed not disturbing the posterior aspect of the meniscus medially and not disturbing the anterior aspect of the meniscus medially. The knee was then thoroughly irrigated and aspirated fluid. The portals were closed. 30 cc of 0.5% bupivacaine was injected into the knee joint after the portals were closed using 3-0 nylon horizontal mattress sutures. A bulky soft tissue dressing was applied. Patient was taken recovery and let complication. There were no complications related to the surgical procedure. I was assisted during the surgical procedure by the esteemed physician bankruptcy assistant, Scott Curtis [facility]. Dictated by: <Electronically signed by Malik Disla MD> Malik Disla MD 12/22/20 1542 Malik Disla MD SIGNATURE DA Report Cosigners: D: TYE 12/22/20 1535 T: TYE 12/22/20 1535 CC: Name Value Range Interpretation Code Description Data Alyssa rce(s) Supporting Document(s) ID Date Data Source [id number] 12/22/2020 12:10:00 PM T [facility] Special Instructions: PRE-OP TODAYNORMAL RESULT IS "Not Detected"Cepheid SARS-CoV-2,FLU/RSV is Multiplex real time RT-PCRNegative results do not preclude SARS-COV-2, influenza orRSV infection and should not be used as the sole basis fortreatment or other patient management decisions.False negative results may occur if virus is present atlevels below the analytical limit of detection.This test has been authorized by FDA under an EUA for use byauthorized laboratoriesSARS-rel CoV RNA Resp Ql MUSA+probeFLUAV RNA Resp Ql MUSA+probeFLUBV RNA Resp Ql MUSA+probeRSV RNA Resp Ql MUSA+probe Special Instructions: PRE-OP TODAY Name Value Range Interpretation Code Description Data Alyssa rce(s) Supporting Document(s) ID Date Data Source [id number] 12/22/2020 12:10:00 PM EDT [facility] Special Instructions: PRE-OP TODAYNORMAL RESULT IS "Not Detected"Cepheid SARS-CoV-2,FLU/RSV is Multiplex real time RT-PCRNegative results do not preclude SARS-COV-2, influenza orRSV infection and should not be used as the sole basis fortreatment or other patient management decisions.False negative results may occur if virus is present atlevels below the analytical limit of detection.This test has been authorized by FDA under an EUA for use byauthorized laboratoriesSARS-rel CoV RNA Resp Ql MUSA+probeFLUAV RNA Resp Ql MUSA+probeFLUBV RNA Resp Ql MUSA+probeRSV RNA Resp Ql MUSA+probe Special Instructions: PRE-OP TODAY Name Value Range Interpretation Code Description Data Alyssa rce(s) Supporting Document(s) Extended hours FLU/COV2 NAAT [facility] ID Date Data Source [id number] 12/22/2020 10:45:00 AM EDT [facility] Name Value Range Interpretation Code Description Data Alyssa rce(s) Supporting Document(s) SARS-CoV+SARS-CoV-2 Ag Resp Ql IA.rapid SARS-COV-2 NOT DETECTED [facility] This lab was ordered by [facility] and reported by [facility]. ID Date Data Source [id number] 12/20/2020 02:47:00 PM EDT [facility] Patient Name: NATO STYLES OB: 1950 Sex: F Pt Unit #: [id number] [facility] Provider: Visit Date/Time: 12/20/20 Primary Insurance: MEDICARE [employer] Secondary Insurance: AARP Intake Vital Signs 12/20/20 14:48 Current Height 5 ft 4 in Current Weight 217 lb BMI 37.2 BP 142/74 Respiration 18 Pulse 95 Temp 97.4 F L Temp Source Temporal Artery Scan Pulse Oximetry (%) 96 Oxygen Delivery Method room air Intake Visit Reasons: Knee pain follow-up Is patient in pain?: Yes Pain scale (1-10): 4 Allergies No Known Food Allergies Allergy (Verified 12/20/20 15:11) bupropion [From WELLBUTRIN] Adverse Reaction (Intermediate, Verified 12/20/20 15:11) Depression PFSH Medical History Achilles tendinitis, left leg Acquired hypothyroidism (01/16/12) Anxiety Attention deficit hyperactivity disorder, 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 CAD (coronary artery disease) (04/16/18) Constipation due to slow transit Coronary atherosclerosis of [place] coronary vessel (12/06/13) Diverticulitis GERD without esophagitis (04/23/18) Hypokalemia (10/09/18) Insomnia Lobular carcinoma of breast, stage 1 Lymphedema of left lower extremity Mixed hyperlipidemia (12/06/13) Moderate recurrent major depression Obesity Obstructive sleep apnea syndrome Plantar fasciitis, left (10/13/18) Rosacea Vitamin D deficiency Surgical History History of ankle surgery History of arthroscopy of left knee History of bilateral mastectomy History of cardiac cath History of cholecystectomy History of colonoscopy (08/11/14) History of hysterectomy History of left breast biopsy History of right knee surgery History of sinus surgery Status post tubal ligation Family History Mother No proble ms noted. Father Diabetes Congestive heart failure, Onset Age: 82 Hypertension AUNT No problems noted. UNCLES No problems noted. UNCLES No problems noted. Social History Does the Patient have a Healthcare Proxy: No Does Patient have a DNR?: No Does Patient have a Living Will?: No Does the Patient have a MOLST?: No Advance Directives on File or in chart?: No adopted: No household members: spouse housing: house marital status: lives independently: Yes highest education level completed: high school graduate service: No current occupational status: retired Hx Recent Travel (where): No well- balanced diet: daily caffeine: Yes (1 D. SODA/DAY) Type: carbonated beverages and coffee Number of servings: 2 high-fat food intake: 0-1 times daily daily servings fruits/ve-4 daily servings of milk/calcium: 2-4 eating out: 1-3 times/week what type of physical activity do you participate in?: walking frequency: 3-4 times per week duration: 30-45 minutes/day Smoking Status: Never smoker alcohol intake: never substance use type: does not use rodney/denominational: Voodoo special rodney needs: Yes seatbelt use: always drive intox or ride w/ intox frontload driver: No water heater temp set < 120 deg: Yes working smoke detector in home: Yes fire extinguisher in home: Yes carbon monox detector in home: Yes firearms in home: Yes firearms unloaded and locked: Yes do you feel safe at home: Yes victim of physical abuse: No victim of emotional abuse: No victim of sexual abuse: No would you like helpful sources: No HPI HPI HPI (1) Knee pain: (2) Acute medial meniscus tear of right knee: HPI Comments Details: Patient is a 70 year old female, here for a surgical consult of her Right knee. Knee pain follow-up * Associated symptoms: Denies fever(s) Review of Systems Const Denies anorexia, Denies excessive sweating, Denies fatigue, Denies fever(s), Denies headache(s), Denies weight gain and Denies weight loss Eyes Denies blurry vision, Denies change in vision, Denies dry eyes, Denies irritation, Denies itchy eyesand Denies loss of vision ENT Denies abnormal hearing, Denies dysphagia, Denies dizziness, Denies headache(s), Denies lip swelling, Denies nasal congestion, Denies nasal discharge, Denies disequilibrium, Denies sinus pain,Denies sore throat and Denies throat swelling Card Denies chest pain, Denies pedal edema, Denies lightheadedness, Denies palpitations and Denies dyspnea Resp Denies cough, Denies excessive phlegm production, Denies pain on inspiration, Denies dyspnea and Denies wheezing GI Denies abdominal pain, Denies change in bowel habits, Denies dysphagia, Denies early satiety, Deniesheartburn, Denies diarrhea, Denies nausea and Denies vomiting Musc Denies back pain, Reports arthralgias (Right knee), Denies limit ed range of motion, Denies muscle cramps and Denies muscle weakness Skin/Breast Denies breast pain, Denies change in pigmentation, Denies lesions, Denies nail changes, Denies rash and Denies unusual bruising Neuro Denies abnormal hearing, Denies dizziness, Denies headache(s), Denies loss of vision, Denies memory loss, Denies paresthesias and Denies disequilibrium Psych Denies abnormal sleep pattern, Denies anxiety, Denies change in appetite, Denies depression, Denies irritability and Denies memory loss Endo Denies cold intolerance, Denies excessive sweating, Denies fatigue, Denies polyphagia, Denies polydipsia, Denies polyuria and Denies palpitations Shawn/Lymph Denies easy bleeding, Denies easy bruising and Denies lymphadenopathy Aller/Immun Denies urticaria, Denies itchy eyes, Denies lip swelling, Denies seasonal rhinorrhea, Denies throat swelling and Denies wheezing Exam Const General: cooperative, healthy appearing, comfortable, well developed and well groomed Nutritional Appearance: average body habitus Orientation: alert, awake and oriented x3 [facility] Head: normal to inspection, normocephalic and atraumatic Eyes General: appearance normal, both eyes and all related structures Pupils: PERRL Neck Neck: normal visual inspection, full ROM and nontender Chest Chest: normal inspection of the chest Resp Effort Inspection: normal respiratory effort Skin Lesions: no lesions Rashes: no rashes Trauma: no lacerations or abrasions Neuro General: patient alert, patient awake and patient oriented x3 Cognition: normal cognition Speech: speech normal Motor: muscle tone normal throughout Extrem Other: Examination reveals excellent range of motion of lumbar spine and a normal right hip exam. Paulino and impingement testing of the right hip is normal. Leg lengths remain equal. Patient continues to have posterior medial joint line tenderness involving the right knee but no right knee effusion. Collateral ligament stress testing in both flexion and extension is normal. Mayi's and posterior drawer testing are also normal. Patient has good extensor tone and strength. Patienthas normal patellofemoral tracking. Neurosensory and motor testing of the affected extremity is normal. Peripheral pulses on the affected side are intact. Patient has mild swelling in the right calf. Her soft tissue envelope is otherwise clear of infection or cellulitis about the right knee joint. Psych Appearance: grossly normal Thought Process: normal Thought Content: normal Insight: insight good Assessment Plan Assessment Plan (1) Knee pain: Code(s): M25.569 - Pain in unspecified knee (2) Acute medial meniscus tear of right knee: Status: Acute Code(s): S83.241A - Other tear of medial meniscus, current injury, right knee, initial encounter SNOMED Code(s): 291263844 Category: Medical Qualifiers: Encounter type: subsequent encounter Qualified Code(s): S83.241D - Other tear of medial meniscus, current injury, right knee, subsequent encounter Plan - Malik Disla MD: Patient remains symptomatic following an acute injury of her right knee that resulted in a tear involving the posterior horn of the right medial meniscus. Patient is scheduled for surgical intervention. Surgical procedure, perioperative course as well as risks and complications were discussed with patient detail. We will proceed with surgery later in a week. All questions were answered. Patient has been cleared from a medical standpoint by both cardiology and her primary care physician. <Electronically signed by Malik Disla MD> 12/20/20 1514 Name Value Range Interpretation Code Description Data Alyssa rce(s) Supporting Document(s) ID Date Data Source [id number] 12/12/2020 05:53:00 PM [facility] Name Value Range Interpretation Code Description Data Alyssa rce(s) Supporting Document(s) Urea nitrogen [Mass/volume] in Serum or Plasma 18 mg/dL 9-23 [facility] Sodium [Moles/volume] in Serum or Plasma 140 mmol/L 132-146 [facility] Potassium [Moles/volume] in Serum or Plasma 4.2 mmol/L 3.5-5.5 [facility] Chloride [Moles/volume] in Serum or Plasma 106 mmol/L 99-109 [facility] Carbon dioxide, total [Moles/volume] in Serum or Plasma 29 mmol/L 20 -31 [facility] Anion gap in Serum or Plasma 9 mmol/L 8-16 [facility] Glucose [Mass/volume] in Serum or Plasma 102 mg/dL 74-106 [facility] Creatinine 0.8 mg/dL 0.5-1.[address] [facility] Glomerular filtration rate/1.73 sq M.pre dicted [Volume Rate/Area] in Serum or Plasma Greater Than 60 ABOVE 60 [facility] Alanine aminotransferase [Enzymatic acti vity/volume] in Serum or Plasma by With P-5'-P 32 U/L 10-49 [facility] ital Aspartate aminotransferase [Enzymatic ac tivity/volume] in Serum or Plasma by With P-5'-P 23 U/L 0-33 [facility] pital Alkaline phosphatase [Enzymatic activity/volume] in Serum or Plasma 116 U/L 45-129 [facility] Calcium [Mass/volume] in Serum or Plasma 8.8 mg/dL 8.5-10.1 [facility] Bilirubin.total [Mass/volume] in Serum or Plasma 0.2 mg/dL 0.3-1.2 Below low normal [facility] Albumin [Mass/volume] in Serum or Plasma by Bromocresol purple (BCP) dye binding method 3.7 g/dL 3.2-4.8 [facility] ital Protein [Mass/volume] in Serum or Plasma 7.6 g/dL 5.7-8.2 [facility] ID Date Data Source [id number] 12/12/2020 05:53:00 PM [facility] Name Value Range Interpretation Code Description Data Alyssa rce(s) Supporting Document(s) Thyroxine (T4) free [Mass/volume] in Serum or Plasma 0.82 ng/dL 0.89-1.76 Below low normal [facility] ID Date Data Source [id number] 12/12/2020 05:53:00 PM [facility] Name Value Range Interpretation Code Description Data Alyssa rce(s) Supporting Document(s) Thyrotropin [Units/volume] in Serum or Plasma by Detec tion limit <= 0.005 mIU/L 0.50 u[iU]/mL 0.35-5.50 [facility] Date Data Source [id number] 12/12/2020 10:47:00 AM [facility] Patient Name: NATO STYLES OB: 1950 Sex: F Pt Unit #: [id number] Location:[facility] Provider: Visit Date/Time: 12/12/20 Primary Insurance: MEDICARE [employer] Secondary Insurance: [employer] ADDENDUM Sugar's chart, PMH, labs, meds reviewed. Seen by [facility] 12/04/20 and they deemed her low risk for a knee arthroscopy. AUDRA Leung feels she is medically optimized and I agree she is low risk for surgery. <Electronically signed by Savanna Gilmore DO> 12/14/20 1009 ADDENDUM CMP 12/12/2020 - glu 102, bun/cr 18/0.8, Na 140, K 4.2, chloride 106, c02 29, anion gap 9, TSH 0.50, FT4 0.82. Clearance pending Dr. Gilmore's review of note and labs. Gerri has already been cleared by cardiology. <Electronically signed by Verónica Leung RPA C> 12/13/20 1807 Intake Vital Signs 12/12/20 10:51 Current Height 5 ft 4 in Current Weight 211 lb Weight Measurement Method Standing Scale BMI 36.2 BP 120/70 Blood Pressure Location Lt brachial Position Sitting Respiration 18 Pulse 88 Pulse Strength Normal Pulse Source Pulse Oximeter Temp 98.6 F Temp Source Oral Pulse Oximetry (%) 98 Oxygen Delivery Method room air Intake Visit Reasons: Pre-op visit (general surgery) Nurse Note: Pt is here for a pre op. She is still having a hard time with putting her down. Crossword Puzzle Maker Required: No Accompanied by: Self / Same as Patient Is patient in pain?: Yes (Righ knee) Pain scale (1-10): 4 Allergies No Known Food Allergies Allergy (Verified 12/12/20 13:00) bupropion [ From WELLBUTRIN] Adverse Reaction (Intermediate, Verified 12/12/20 13:00) Depression Medications - Last Reconciled 12/12/20 by CORINNE Rider alprazolam 0.25 mg PO TID PRN MDD 3TABS atorvastatin 40 mg PO QPM cholecalciferol (vitamin D3) 2,000 units PO DAILY clonidine HCl TAKE 1 TABLET AT BEDTIME famotidine 20 mg PO BID levothyroxine (Synthroid) 75 mcg PO DIRECTED omeprazole 40 mg PO QDAY Synthroid (levothyroxine) 50 mcg PO DIRECTED NS venlafaxine ER 75 mg PO BID HIV Testing Offer - ages 13-64 Requirement for HIV testing offer been met?: Patient reports past refusal SBIRT Annual Questionnaire Are you currently in recovery for alcohol or substance use?: No How many times in the past year have you had 4 or more drinks in a day?: None How many times in the past year have you used a recreational drug or used a prescription medication for nonmedical reasons?: None Do you need a note to return Do you need a note to return to daycare/school/sports/work: No Coronavirus Screening Screening Are you currently positive or on isolation for COVID ?: No Do you have any NEW signs of one or more of the following?: no symptoms Do you have NEW signs of at least two of the following?: no symptoms HPI Additional HPI HPI Details: 70yo female with PMH hypothyroidism, LINDSEY, CAD, hyperlipidemia, depression/anxiety, hx breast CA, GERD, lymphedema here for surgical clearance for RT knee arthroscopy d/t posterior RT medial meniscus tear with Dr. Disla 12/22/2020. Gerri states she is doing well. Has not been sick recently. Received 2nd covid vaccine yesterday. Only side effect sore arm. Not exercising regularly at this time. Did [place] for 60min about 1mo ago. Generally walks during the nicer weather. No chest pain, no palpitations, no SOB, no dizziness. CAD - saw [facility] cardiology for a cardiac clearance 12/04/2020 - Jakub ZHU and Dr. Todd - ECG done, reported as benign. 50% LAD occlusion cardiac cath 2013. NL NST 2016. Advised low cardiovascular risk for surgery. Simvastatin switched to atorvastatin 40mg daily and advised to start ASA 81mg. Gerri plans to start ASA after her surgery. F/u 1yr with ECHO prior to appt LINDSEY - compliant with cpap, uses nightly Hyperlipidemia - prev on simvastatin, now taking atorvastatin 40mg daily. Last lipids 08/2020 HDL 51, LDL 79, TG 210 Autoimmune hypothyroidism - currently alternating synthroid 50mcg with 75mcg, due to recheck TSH, FT4 - will be seeing endocrinology in [place]. GERD - has not had any problems, currently taking omeprazole 40mg daily along with famotidine 20mg 2tabs at night. Depression/anxiety - currently on venlafaxine ER 150mg daily, has been more down as she had to put down her dog yesterday. Lymphedema - stable, wears compression stockings Takes clonidine 0.1mg HS for hot flashes CBC done 12/08/2020 - WBC 4.3, hgb/hct 12.6/39.9, MCHC 32, MPV 8.8, PLT 319 Pre-Operative H P Surgery Information Date of surgery: 12/22/20 Surgeon: DR DISLA Anesthesia: general Covid Screening Pre-Op Covid testing ordered?: Yes Exercise tolerance Can climb one flight of stairs (12-13 steps) in less than 30 seconds without stopping and without symptoms: Yes Distance able to walk (blocks): 2 Risk factors Pulmonary risk factors: age > 60 Pertinent Past History Medical History: Coronary artery disease, Hypertension and Sleep Apnea Previous surgical complications: No Previous anesthesia intolerance: No Steroid use in last 6 months: No Allergies to meds or foods: Yes (bupropion - increase in depression) Pertinent Family History Family hx adverse reaction to anesthesia: No Family history coagulopathy: No Menstrual History Menopausal?: Yes [facility] Medical History (Updated 12/12/20 @ 13:04 by CORINNE Rider) Achilles tendinitis, left leg Acquired hypothyroidism (01/16/12) Anxiety Attention deficit hyperactivity disorder, 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 CAD (coronary artery disease) (04/16/18) Constipation due to slow transit Coronary atherosclerosis of [place] coronary vessel (12/06/13) Diverticulitis GERD without esophagitis (04/23/18) Hypokalemia (10/09/18) Insomnia Lobular c arcinoma of breast, stage 1 Lymphedema of left lower extremity Mixed hyperlipidemia (12/06/13) Moderate recurrent major depression Obesity Obstructive sleep apnea syndrome Plantar fasciitis, left (10/13/18) Rosacea Vitamin D deficiency Surgical History History of ankle surgery History of arthroscopy of left knee History of bilateral mastectomy History of cardiac cath History of cholecystectomy History of colonoscopy (08/11/14) History of hysterectomy History of left breast biopsy History of right knee surgery History of sinus surgery Status post tubal ligation Family History Mother No problems noted. Father Diabetes Congestive heart failure, Onset Age: 82 Hypertension AUNT No problems noted. UNCLES No problems noted. UNCLES No problems noted. Social History (Updated 12/12/20 @ 11:23 by CORINNE Rider) Does the Patient have a Healthcare Proxy: No Does Patient have a DNR?: No Does Patient have a Living Will?: No Does the Patient have a MOLST?: No Advance Directives on File or in chart?: No adopted: No household members: spouse housing: house marital status: lives independently: Yes highest education level completed: high school graduate service: No current occupational status: retired Hx Recent Travel (where): No well-balanced diet: daily caffeine: Yes (1 D. SODA/DAY) Type: carbonated beverages and coffee Number of servings: 2 high-fat food intake: 0-1 times daily daily servings fruits/ve-4 daily servings of milk/calcium: 2-4 eating out: 1-3 times/week what type of physical activity do you participate in?: walking frequency: 3-4 times per week duration: 30-45 minutes/day Smoking Status: Never smoker alcohol intake: never substance use type: does not use rodney/denominational: Voodoo special rodney needs: Yes seatbelt use: always drive intox or ride w/ intox frontload driver: No water heater temp set < 120 deg: Yes working smoke detector in home: Yes fire extinguisher in home: Yes carbon monox detector in home: Yes firearms in home: Yes firearms unloaded and locked: Yes do you feel safe at home: Yes victim of physical abuse: No victim of emotional abuse: No victim of sexual abuse: No would you like helpful sources: No Review of Systems Const Denies body aches, Denies chills, Denies difficulty sleeping, Denies excessive sweating, Denies fatigue, Denies fever(s), Denies headache(s), Denies night sweats, Denies poor appetite, Denies stops breathing during sleep, Denies weakness, Denies weight gain and Denies weight loss Eyes Denies blurry vision, Denies change in vision, Denies diplopia, Denies eye discharge, Denies irritation, Denies loss of vision and Denies eye pain ENT Denies bleeding gums, Denies dysphagia, Denies vertigo, Denies dizziness, Denies otalgia, Denies headache(s), Denies hearing loss, Denies hoarseness, Denies epistaxis, Denies mouth lesions, Denies nasal congestion, Denies nasal discharge, Denies neck pain, Denies odynophagia, Denies disequilibrium, Denies post nasal drip, Denies tinnitus, Denies sinus pressure and Denies sore throat Card Denies chest pain, Denies diaphoresis, Denies syncope, Denies rapid heart rate, Denies lightheadedness, Denies palpitations, Denies dyspnea, Denies dyspnea on exertion, Denies orthopnea and Denies paroxysmal nocturnal dyspnea Resp Denies chest congestion, Denies cough, Denies hemoptysis, Denies dyspnea, Denies dyspnea on exertionand Denies wheezing GI Denies abdominal pain, Denies melena, Denies bloating, Denies hematochezia, Denies change in bowel habits, Denies change in stool character, Denies constipation, Denies dysphagia, Denies heartburn, Denies fecal incontinence, Denies diarrhea, Denies loose stools, Denies nausea, Denies odynophagia, Denies vomiting and Denies hematemesis Genitourinary: Denies hematuria, change in libido, dysuria, urinary frequency or urinary urgency Musc Denies arthralgias, Denies joint swelling, Denies limited range of motion, Denies neck pain, Denies numbness and Denies tingling Skin/Breast Denies rash and Denies unusual bruising Neuro Denies abnormal speech, Denies behavioral changes, Denies confusion, Denies vertigo, Denies dizziness, Denies syncope, Denies headache(s), Denies lack of coordination, Denies loss of vision, Deniesmemory loss, Denies numbness, Denies convulsions, Denies seizure-like activity, Denies tingling, Denies paresthesias, Denies tremor(s), Denies disequilibrium and Denies weakness Psych Denies behavioral changes, Denies change in libido, Denies confusion, Denies depression, Denies auditory hallucinations, Denies memory loss, Denies mood swings and Denies visual hallucinations Endo Denies change in libido, Denies cold intolerance, Denies excessive sweating, Denies fatigue, Denies flu shing, Denies heat intolerance, Denies polyuria and Denies palpitations Aller/Immun Denies wheezing Exam Const General: cooperative, healthy appearing, comfortable, no acute distress, well developed and well groomed Nutritional Appearance: obese [facility] Head: normocephalic and atraumatic Ears: TM's normal bilaterally and EAC abnormal (MINIMAL CERUMEN BILAT, NO OBSTRUCTION) General nose exam: no nasal discharge Mouth: oral mucosae normal and moist mucous membranes Throat: posterior oropharynx normal Eyes Conjunctivae: conjunctivae normal Pupils: PERRL EOM: EOM intact bilaterally Neck Neck: no lymphadenopathy Thyroid: thyroid normal Carotids: no bruits Resp Effort Inspection: normal respiratory effort and able to speak in complete sentences Auscultation: clear to auscultation bilaterally, no crackles, lung sounds not diminished, no rhonchiand no wheezes Cardio Rate: regular rate Rhythm: regular rhythm Heart Sounds: S1 normal and S2 normal Pulses: dorsalis pedis present bilaterally 3+ GI Palpation: soft, not firm, no masses, not rigid and nontender Auscultation: normal bowel sounds Skin Rashes: no rashes Neuro Cranial Nerves: CN's II-XII intact bilaterally Extrem General: edema (LYMPHEDEMA BILAT LT < RT, HAS COMPRESSION STOCKING LT LE) Psych Appearance: grossly normal Mental Status: mental status grossly normal Speech and Movement: speech and movement normal Mood: congruent mood Affect: normal affect Attitude: cooperative Thought Process: normal Assessment Plan Assessment Plan (1) Encounter for preoperative examination for general surgical procedure: Code(s): Z01.818 - Encounter for other preprocedural examination Plan - Verónica Leung, RPA-C: 70yo female with PMH hypothyroidism, LINDSEY, CAD, hyperlipidemia, depression/anxiety, hx breast CA, GERD, lymphedema here for surgical clearance for RT knee arthroscopy d/t posterior RT medial meniscus tear with Dr. Disla 12/22/2020. Gerri has been feeling well, has not been sick recently. Cleared by [facility] 12/04/2020 - had ECG done, reported as benign, low cardiovascular risk for RT knee arthroscopy. Gerri denies chest pain, palpitations, sob, dizziness. Discussed CBC results. Marie to draw CMP today. Advised not to take ASA, NSAIDs the week prior to surgery. Advised morning of the surgery to take synthroid and venlafaxine with a small sip of water. COVID test already scheduled. (2) Acute medial meniscus tear of right knee: Status: Acute Code(s): S83.241A - Other tear of medial meniscus, current injury, right knee, initial encounter SNOMED Code(s): 773096945 Category: Medical Qualifiers: Encounter type: subsequent encounter Qualified Code(s): S83.241D - Other tear of medial meniscus, current injury, right knee, subsequent encounter Plan - BENJA RiderC: RT knee arthroscopy 12/22/[address] Disla (3) Coronary atherosclerosis of [place] coronary vessel: Status: Chronic Onset Date: 12/06/13 Code(s): I25.10 - Atherosclerotic heart disease of [place] coronary artery without angina pectoris SNOMED Code(s): 545522161 Category: Medical Qualifiers: [place] vs. transplanted heart: [place] heart Associated angina: without angina Qualified Code(s): I25.10 - Atherosclerotic heart disease of [place] coronary artery without angina pectoris Plan - BENJA RiderC: Cleared by cardiology 12/04/2020. ECG done 12/04/2020, reported as benign. Cardiac cath 2013 50% LAD. Nuclear stress test negative 2016. Dr. Todd advised low cardiovascular risk for arthroscopy. F/u 1yr with ECHO prior to appt. (4) Mixed hyperlipidemia: Status: Chronic Onset Date: 12/06/13 Code(s): E78.2 - Mixed hyperlipidemia SNOMED Code(s): 512698952 Category: Medical Plan - CORINNE Rider: Stable on simvastatin 10mg daily, changed by cardiology to atorvastatin 40mg daily. Last lipids 08/2020 HDL 51, LDL 79, TG 210 Orders: Orders: CMP Today (5) Obstructive sleep apnea syndrome: Status: Chronic Comment: 12/06/2013 SNOMED Code(s): 48002164 Category: Medical Plan - CORINNE Rider: Compliant with cpap, using nightly. Advised to check with anesthesia re: bringing cpap the day of surgery. Additional Comments Additional Comments: Hypothyroidism - TSH and FT4 to be drawn today. CMP pending. Gerri's current medical conditions optimized at present, low risk for complications. ASA category II. Clearance pending lab results, Dr. Gilmore's review of note. Advised Gerri to contact office if any questions/concerns arise or s/s develop. Orders Other Orders: Orders: FREE T4 (LAB) Today E03.9 TSH Today E03.9 Coding Level of Care Code 89224 Est Pt Intermediate Comp Exam Detailed Diagnoses Encounter for preoperative examination for general surgical procedure Z01.818 Acute medial meniscus tear of right knee S83.241D Encounter type: subsequent encounter Coronary atherosclerosis of [place] coronary vessel I25.10 [place] vs. transplanted heart: [place] heart Associated angina: without angina Mixed hyperlipidemia E78.2 Obstructive sleep apnea syndrome G47.33 <Electronically signed by Verónica Leung RPA C> 12/12/20 1312 Name Value Range Interpretation Code Description Data Alyssa rce(s) Supporting Document(s) ID Date Data Source [id number] 12/08/2020 10:58:00 AM EST [facility] Name Value Range Interpretation Code Description Data Alyssa rce(s) Supporting Document(s) Leukocytes [#/volume] in Blood by Automated count 4.3 10*3/uL 4.45-10.71 Below low normal [facility] Erythrocytes [#/volume] in Blood by Automated count 4.52 10*6/uL 4.20 -5.40 N [facility] Hemoglobin [Moles/volume] in Blood 12.6 g/dL 10.7-15.4 N [facility] Hematocrit [Volume Fraction] of Blood by Automated count 39.9 % 3 7-47 N [facility] Erythrocyte mean corpuscular volume [Ent itic volume] in Cord blood by Automated count 88 fL 80-96 N [facility] ital Erythrocyte mean corpuscular hemoglobin [Entitic mass] by Au tomated count 28 pg 27-31 N [facility] Erythrocyte mean corpuscular hemoglobin concentration [Mass/volume] in Cord blood 32 g/dL 33-37 Below low normal [facility] Erythrocyte distribution width [Entitic volume] by Automated count 14 % 11-15 N [facility] Platelets [#/volume] in Blood by Automated count 319 10*3/uL 130-472 N [facility] Platelet mean volume [Entitic volume] in Blood 8.8 fL 9.1-13. 1 Below low normal [facility] Neutrophils/100 leukocytes in Blood by Automated count 48.4 % 41- 77 N [facility] Neutrophils [#/volume] in Blood by Automated count 2.1 U 1.7-7.6 N [facility] Lymphocytes/100 leukocytes in Blood by Automated count 35.0 % 14- 46 N [facility] Lymphocytes [#/volume] in Blood by Automated count 1.5 U 0.6-4.6 N [facility] Monocytes/100 leukocytes in Blood by Automated count 13.6 % 4-12 Above high normal [facility] Monocytes [#/volume] in Blood by Automated count 0.6 U 0.2-1.2 N [facility] Eosinophils/100 leukocytes in Blood by Automated count 1.9 % 0-7 N [facility] Eosinophils [#/volume] in Blood by Automated count 0.1 U 0.0-0.5 N [facility] Basophils/100 leukocytes in Blood by Automated count 0.9 % 0.4-1 .3 N [facility] Basophils [#/volume] in Blood by Automated count 0.0 U 0.0-0.2 N [facility] NUCLEATED RED BLOOD CELL 0 % [facility] NUCLEATED RED BLOOD CELL# [address] [facility] Immature granulocytes [Presence] in Blood by Automated count 0-2 N [facility] Immature granulocytes [#/volume] in Blood by Automated count 0.0 U 0-0.1 N [facility] Manual Differential panel - Blood NO [facility] ID Date Data Source [id number] 11/21/2020 01:37:00 PM EST [facility] Patient Name: NATO STYLES OB: 1950 Sex: F Pt Unit #: [id number] [facility] Provider: Visit Date/Time: 11/21/20 Primary Insurance: MEDICARE [employer] Secondary Insurance: [facility] Intake Vital Signs 11/21/20 13:38 Current Height 5 ft 4 in Current Weight 211 lb BMI 36.2 BP 140/76 Respiration 16 Pulse 73 Pulse Oximetry (%) 98 Intake Visit Reasons: Knee pain follow-up Is patient in pain?: Yes Pain scale (1-10): 3 Allergies bupropion [From WELLBUTRIN] Adverse Reaction (Intermediate, Verified 11/21/20 16:59) Depression Medications - Last Reconciled 11/21/20 by Malik Disla MD cholecalciferol (vitamin D3) 2,000 units PO DAILY clonidine HCl TAKE 1 TABLET AT BEDTIME famotidine 20 mg PO BID lactobacillus combination no.4 3,000 mmu cells PO BID levothyroxine (Synthroid) 75 mcg PO DIRECTED omeprazole 40 mg PO QDAY simvastatin 10 mg PO DAILY Synthroid (levothyroxine) 50 mcg PO DIRECTED NS venlafaxine ER 75 mg PO BID HIV Testing Offer - ages 13-64 Requirement for HIV testing offer been met?: Patient reports past refusal Coronavirus Screening Screening Are you currently positive or on isolation for COVID ?: No Do you have any NEW signs of one or more of the following?: no symptoms Do you have NEW signs of at least two of the following?: no symptoms PFSH Medical History Achilles tendinitis, left leg Acquired hypothyroidism (01/16/12) Anxiety Attention deficit hyperactivity disorder, 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 CAD (coronary artery disease) (04/16/18) Constipation due to slow transit Coronary atherosclerosis of [place] coronary vessel (12/06/13) Diverticulitis GERD without esophagitis (04/23/18) Hypokalemia (10/09/18) Impacted cerumen Insomnia Lobular carcinoma of breast, stage 1 Lymphedema of left lower extremity Major depressive disorder menarche 14 [id number] Migraine Headaches Mixed hyperlipidemia (12/06/13) Moderate recurrent major depression Obesity Obstructive sleep apnea (adult) (pediatric) (12/06/13) Obstructive sleep apnea syndrome Plantar fasciitis, left (10/13/18) Reactive depressive psychosis Rosacea Vitamin D deficiency Surgical History History of ankle surgery History of arthroscopy of left knee History of bilateral mastectomy History of cardiac cath History of cholecystectomy History of colonoscopy (08/11/14) History of hysterectomy History of left breast biopsy History of right knee surgery History of sinus surgery Status post tubal ligation Family History Mother No problems noted. Father Diabetes Congestive heart failure, Onset Age: 82 Hypertension AUNT No problems noted. UNCLES No problems noted. UNCLES No problems noted. Social History Does the Patie nt have a Healthcare Proxy: No Does Patient have a DNR?: No Does Patient have a Living Will?: No Does the Patient have a MOLST?: No Advance Directives on File or in chart?: No adopted: No household members: spouse housing: house marital status: lives independently: Yes highest education level completed: high school graduate service: No current occupational status: retired Hx Recent Travel (where): No well- balanced diet: daily caffeine: Yes high-fat food intake: 0-1 times daily daily servings fruits/ve-4 daily servings of milk/calcium: 2-4 eating out: 1-3 times/week Smoking Status: Never smoker alcohol intake: never substance use type: does not use rodney/denominational: Voodoo special rodney needs: Yes seatbelt use: always drive intox or ride w/ intox frontload driver: No water heater temp set < 120 deg: Yes working smoke detector in home: Yes fire extinguisher in home: Yes carbon monox detector in home: Yes firearms in home: Yes firearms unloaded and locked: Yes do you feel safe at home: Yes victim of physical abuse: No victim of emotional abuse: No victim of sexual abuse: No would you like helpful sources: No HPI Additional HPI HPI Details: Patient is a 70 year old female, here for MRI results of the right knee. Patient had been seen earlier in this clinic with a right knee effusion. She underwent prior aspiration of the rightknee effusion combined with a triamcinolone injection. She continues to ambulate with crutches although she feels that her overall symptomatic complaints are improved following prior aspiration and injection. She continues, however, to have a sense of instability involving the right knee joint. She recalls no specific injury to the right knee. Prior x-rays of the right knee did not show any significant articular changes within the right knee joint. Knee pain follow- up * Associated symptoms: Denies fever(s) Review of Systems Const Denies anorexia, Denies excessive sweating, Denies fatigue, Denies fever(s), Denies headache(s), Denies weight gain and Denies weight loss Eyes Denies blurry vision, Denies change in vision, Denies dry eyes, Denies irritation, Denies itchy eyesand Denies loss of vision ENT Denies abnormal hearing, Denies dysphagia, Denies dizziness, Denies headache(s), Denies lip swelling, Denies nasal congestion, Denies nasal discharge, Denies disequilibrium, Denies sinus pain,Denies sore throat and Denies throat swelling Card Denies chest pain, Denies pedal edema, Denies lightheadedness, Denies palpitations and Denies dyspnea Resp Denies cough, Denies excessive phlegm production, Denies pain on inspiration, Denies dyspnea and Denies wheezing GI Denies abdominal pain, Denies change in bowel habits, Denies dysphagia, Denies early satiety, Deniesheartburn, Denies diarrhea, Denies nausea and Denies vomiting Musc Denies back pain, Reports arthralgias (right knee), Denies limited range of mot ion, Denies muscle cramps and Denies muscle weakness Skin/Breast Denies breast pain, Denies change in pigmentation, Denies lesions, Denies nail changes, Denies rash and Denies unusual bruising Neuro Denies abnormal hearing, Denies dizziness, Denies headache(s), Denies loss of vision, Denies memory loss, Denies paresthesias and Denies disequilibrium Psych Denies abnormal sleep pattern, Denies anxiety, Denies change in appetite, Denies depression, Denies irritability and Denies memory loss Endo Denies cold intolerance, Denies excessive sweating, Denies fatigue, Denies polyphagia, Denies polydipsia, Denies polyuria and Denies palpitations Shawn/Lymph Denies easy bleeding, Denies easy bruising and Denies lymphadenopathy Aller/Immun Denies urticaria, Denies itchy eyes, Denies lip swelling, Denies seasonal rhinorrhea, Denies throat swelling and Denies wheezing Exam Const General: cooperative, healthy appearing, comfortable, well developed, well groomed and anxious Nutritional Appearance: average body habitus Orientation: alert, awake and oriented x3 [facility] Head: normal to inspection, normocephalic and atraumatic Eyes General: appearance normal, both eyes and all related structures Pupils: PERRL Neck Neck: normal visual inspection, full ROM and nontender Chest Chest: normal inspection of the chest Resp Effort Inspection: normal respiratory effort Skin Lesions: no lesions Rashes: no rashes Trauma: no lacerations or abrasions Neuro General: patient alert, patient awake and patient oriented x3 Cognition: normal cognition Speech: speech normal Motor: muscle tone normal throughout Extrem Other: Examination of the right knee reveals mild soft tissue swelling. Patient has discrete tenderness about the posterior aspect of the medial joint line. I was unable to perform a Lenin's test due to extreme discomfort within the right knee with attempted range of motion. Collateral stress testing of the knee was also extremely painful. Gross ligament stability of the knee joint however was intact. Patient has a normal extensor mechanism and a normal right hip exam. Pretibial edema is not present in respect to the right lower leg. Right ankle exam remains normal. Psych Appearance: grossly normal Thought Process: normal Thought Content: normal Insight: insight good Assessment Plan Assessment Plan (1) Knee pain: Code(s): M25.569 - Pain in unspecified knee (2) Acute medial meniscus tear of right knee: Status: Acute Code(s): S83.241A - Other tear of medial meniscus, current injury, right knee, initial encounter SNOMED Code(s): 470419445 Category: Medical Qualifiers: Encounter type: subsequent encounter Qualified Code(s): S83.241D - Other tear of medial meniscus, current injury, right knee, subsequent encounter Plan - Malik Disla MD: MRI scan of the right knee was reviewed. Patient is noted to have a tear involving the posterior horn of the right medial meniscus. The articular surfaces of the medial femoral condyle and medial tibial plateau appear unremarkable. X-rays reviewed of the right knee are normal. Patient remains symptomatic. Her clinical exam is consistent with MRI scan findings. Treatment options were discussed with her. She wanted to proceed with arthroscopic right knee surgery. The surgical procedure, perioperative course as well as risks and complications were discussed with the patient in detail. We will plan on surgical intervention on an outpatient basis pending medical clearance. All questions were answered. Coding Level of Care Code 98713 Est Pt Extended Comp Exam Expanded Problem Focused Diagnoses Knee pain M25.569 Acute medial meniscus tear of right knee S83.241D Encounter type: subsequent encounter <Electronically signed by Malik Disla MD> 11/21/20 1705 Name Value Range Interpretation Code Description Data Alyssa rce(s) Supporting Document(s) ID Date Data Source [id number] 11/20/2020 09:40:00 AM EST [facility] [address] [place] [address] [phone] NAME SEX PT STATUS ACCOUNT NUMBER NATO STYLES REG REF [id number] ORDERING PHYSICIAN LOCATION MEDICAL RECORD NO. Everett Mc MD MRI [id number] ATTENDING PHYSICIAN DATE OF DATE OF EXAM/TIME Verónica Leung [facility] C 1950 11[birth year]20/20902 TYPE / EXAM MRI Knee Right w/o REASON FOR EXAM R/o torn menicus, ortho Clinical History/Indication for Exam: R/o torn menicus, ortho PROCEDURE: MRI KNEE RIGHT WITHOUT CONTRAST CLINICAL HISTORY: Torn meniscus. TECHNIQUE: Coronal sagittal and transaxial images of the right knee were performed with multiple imaging sequences. COMPARISON: Previous radiograph exam from 11/13/2020. FINDINGS: Subcutaneous edema anterior, medial and lateral aspect patellofemoral joint. Mild chondromalacia with thinning of the articular cartilage medial facet patella. Normal alignment and remaining articular cartilage of the patellofemoral joint with moderate effusion. Normal morphology and signal intensity of the quadriceps tendon, patellar tendon, medial patellar retinaculum and lateral patellar retinaculum. Tibial tuberosity-trochlear groove distance is 0.9 CM which is within normal limits. Subcutaneous edema anterior to the knee. Postoperative change with paramagnetic artifact iliotibial band. Acute grade I sprain/no tear with edema anteromedial and posterolateral bundles of the anterior cruciate ligament. Normal posterior cruciate ligament. Normal medial collateral ligament. Normal lateral collateral ligament. Tear posterior horn medial meniscus extending to the inferior articular surface and free margin. Moderate chondromalacia medial joint compartment. Intermediate signal intensity could be small tear superior surface anterior horn lateral meniscus. Normal lateral joint compartment. No abnormal bone marrow edema. No fracture. No Jaimes's cyst. No focal mass. No fluid collection. Normal iliotibial band. Normal pes anserine tendon. Normal popliteal fossa. IMPRESSION: Tear posterior horn medial meniscus extending to the inferior articular surface and free margin. Intermediate signal intensity could be small tear superior surface anterior horn lateral meniscus. Chondromalacia patellofemoral joint and medial joint compartment with moderate effusion. Acute grade I sprain/no tear with edema anteromedial and posterolateral bundles of the anterior cruciate ligament. Postoperative change with paramagnetic artifact iliotibial band. Remainder of the study was unremarkable. REPORT SIGNATURE ON FILE 11/20/2020 (09:40 Eastern Time ) Signed by: Bev Kirby M.D., [facility] Reported By Bev Kirby MD on 11/20/20939 Signed By Bev Kirby MD on 11/20/2040 Date Time CC: Bev Kirby MD; Verónica Leung Techn: HANJU Trans Dt/Tm: Trans by: DT Prt Dt/Tm: : Total DLP = 0.00 mGy-cm : Total Radiation Dose = 0.0000 mSv Lifetime Dose: 18.2400 mSv Name Value Range Interpretation Code Description Data Alyssa rce(s) Supporting Document(s) ID Date Data Source [id number] 11/17/2020 01:40:00 PM [facility] Patient Name: NATO STYLES OB: 1950 Sex: F Pt Unit #: [id number] Location:[facility] Provider: Visit Date/Time: 11/17/20 Primary Insurance: MEDICARE [employer] Secondary Insurance: [facility] Intake Vital Signs 11/17/20 13:43 Current Height 5 ft 4 in Current Weight 211 lb BMI 36.2 BP 124/76 Respiration 16 Pulse 76 Pulse Oximetry (%) 98 Intake Visit Reasons: Knee pain follow-up Is patient in pain?: Yes Pain scale (1-10): 6 Allergies bupropion [From WELLBUTRIN] Adverse Reaction (Intermediate, Verified 06/02/20 21:10) Depression HIV Testing Offer - ages 13-64 Requirement for HIV testing offer been met?: Patient reports past refusal Coronavirus Screening Screening Are you currently positive or on isolation for COVID ?: No Do you have any NEW signs of one or more of the following?: no symptoms Do you have NEW signs of at least two of the following?: no symptoms PFSH Medical History Achilles tendinitis, left leg Acquired hypothyroidism (01/16/12) Anxiety Attention deficit hyperactivity disorder, 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 CAD (coronary artery disease) (04/16/18) Constipation due to slow transit Coronary atherosclerosis of [place] coronary vessel (12/06/13) Diverticulitis GERD without esophagitis (04/23/18) Hypokalemia (10/09/18) Impacted cerumen Insomnia Lobular carcinoma of breast, stage 1 Lymphedema of left lower extremity Major depressive disorder menarche 14 Migraine Headaches Mixed hyperlipidemia (12/06/13) Moderate recurrent major depression Obesity Obstructive sleep apnea (adult) (pediatric) (12/06/13) Obstructive sleep apnea syndrome Plantar fasciitis, left (10/13/18) Reactive depressive psychosis Rosacea Vitamin D deficiency Surgical History History of ankle surgery History of arthroscopy of left knee History of bilateral mastectomy History of cardiac cath History of cholecystectomy History of colonoscopy (08/11/14) History of hysterectomy History of left breast biopsy History of right knee surgery History of sinus surgery Status post tubal ligation Family History (Revie wed 11/17/20 @ 13:48 by Sharon Quintana) Mother No problems noted. Father Diabetes Congestive heart failure, Onset Age: 82 Hypertension AUNT No problems noted. UNCLES No problems noted. UNCLES No problems noted. Social History Does the Patient have a Healthcare Proxy: No Does Patient have a DNR?: No Does Patient have a Living Will?: No Does the Patient have a MOLST?: No Advance Directives on File or in chart?: No adopted: No household members: spouse housing: house marital status: lives independently: Yes highest education level completed: high school graduate service: No current occupational status: retired Hx Recent Travel (where): No well-balanced diet: daily caffeine: Yes high-fat food intake: 0-1 times daily daily servings fruits/ve-4 daily servings of milk/calcium: 2-4 eating out: 1-3 time s/week Smoking Status: Never smoker alcohol intake: never substance use type: does not use rodney/denominational: Voodoo special rodney needs: Yes seatbelt use: always drive intox or ride w/ intox frontload driver: No water heater temp set < 120 deg: Yes working smoke detector in home: Yes fire extinguisher in home: Yes carbon monox detector in home: Yes firearms in home: Yes firearms unloaded and locked: Yes do you feel safe at home: Yes victim of physical abuse: No victim of emotional abuse: No victim of sexual abuse: No would you like helpful sources: No HPI Additional HPI HPI Details: Patient, is a 70 year old female here for Laboratory results of the right knee fluid. On 11/14/20, her right knee was aspirated, with a cortisone injection after. Approximately 1 month ago the right knee pain began primarily along the medial compartment. At home she tried has tried a compression sleeve, Lidocaine patches, and taking Ibuprofen before going to work every morning. Today she is experiencing a burning pain in the anterior/medial aspect of the knee. She has pain with movement. Knee pain follow-up * Associated symptoms: Denies fever(s) Review of Systems Const Denies anorexia, Denies excessive sweating, Denies fatigue, Denies fever(s), Denies headache(s), Denies weight gain and Denies weight loss Eyes Denies blurry vision, Denies change in vision, Denies dry eyes, Denies irritation, Denies itchy eyesand Denies loss of vision ENT Denies abnormal hearing, Denies dysphagia, Denies dizziness, Denies headache(s), Denies lip swelling, Denies nasal congestion, Denies nasal discharge, Denies disequilibrium, Denies sinus pain,Denies sore throat and Denies throat swelling Card Denies chest pain, Denies pedal edema, Denies lightheadedness, Denies palpitations and Denies dyspnea Resp Denies cough, Denies excessive phlegm production, Denies pain on inspiration, Denies dyspnea and Denies wheezing GI Denies abdominal pain, Denies change in bowel habits, Denies dysphagia, Denies early satiety, Deniesheartburn, Denies diarrhea, Denies nausea and Denies vomiting Musc Denies back pain, Reports arthralgias (right knee), Denies limited range of motion, Denies muscle cramps and Denies muscle weakness Skin/Breast Denies breast pain, Denies change in pigmentation, Denies lesions, Denies nail changes, Denies rash and Denies unusual bruising Neuro Denies abnormal hearing, Denies dizziness, Denies headache(s), Denies loss of vision, Denies memory loss, Denies paresthesias and Denies disequilibrium Psych Denies abnormal sleep pattern, Denies anxiety, Denies change in appetite, Denies depression, Denies irritability and Denies memory loss Endo Denies cold intolerance, Denies excessive sweating, Denies fatigue, Denies polyphagia, Denies polydipsia, Denies polyuria and Denies palpitations Shawn/Lymph Denies easy bleeding, Denies easy bruising and Denies lymphadenopathy Aller/Immun Denies urticaria, Denies itchy eyes, Denies lip swelling, Denies seasonal rhinorrhea, Denies throat swelling and Denies wheezing Exam Extrem Other: Right knee no effusion. She is sitting in the chair with a flexed at 90 degrees. She has difficulty with range of motion with pain and discomfort even in the mid arc. She is tender to palpation along the medial joint line. Lab results are uneventful aspiration was negative for crystals negative for blood negative for white cells negative for growth Assessment Plan Assessment Plan (1) Knee pain: Code(s): M25.569 - Pain in unspecified knee Plan - Everett Mc MD: The patient's knee pain is atypical. I would recommend an MRI of the knee be obtained at this point and if the MRI is positive for meniscal tear to address the pathology if the MRI is negative then serologic screen for Lyme's disease rheumatoid factor and BRENDAN should be obtained. I would recommend beginning a course of physical therapy at that point that is if the MRI is negative Orders: Orders: MRI Knee Right w/o Today Coding Level of Care Code 84725 Est Pt Limited Comp Diagnoses Knee pain M25.569 <Electronically signed by Everett Mc MD> 11/17/20 1507 Name Value Range Interpretation Code Description Data Alyssa rce(s) Supporting Document(s) ID Date Data Source [id number] 11/14/2020 03:48:00 PM [facility] RIGHT KNEE RIGHT KNEE RIGHT KNEE Name Value Range Interpretation Code Description Data Alyssa rce(s) Supporting Document(s) Crystals [type] in Body fluid by Light microscopy NEG [facility] @Reenter manual test result: NEGATIVE FO R CRYSTALS@by Sparkle Rojas at 11/14/20 1548.@Enter results obtained by [employer] tech: NEGATIVE FOR CRYSTALS@confirmation done by KEIKO BALDERAS at 11/14/20 1548.@ Pos Control Result:POSITIVE@ Neg Control Result:NEGATIVE@1548 11/14/20 by TABATHA. ID Date Data Source [id number] 11/24/2020 08:55:00 AM [facility] RIGHT KNEE RIGHT KNEE RIGHT KNEE Name Value Range Interpretation Code Description Data Alyssa rce(s) Supporting Document(s) Gram stain result No organisms seen [facility] ID Date Data Source [id number] 11/24/2020 08:55:00 AM [facility] RIGHT KNEE RIGHT KNEE RIGHT KNEE Name Value Range Interpretation Code Description Data Alyssa rce(s) Supporting Document(s) Bacteria identified in Body fluid by Culture SP DESC: RIGHT KNEE [facility] Culture results No growth AT DAY 10 [facility] ID Date Data Source [id number] 11/14/2020 03:53:00 PM [facility] Source right knee Name Value Range Interpretation Code Description Data Alyssa rce(s) Supporting Document(s) [Type] of Body fluid [facility] Body Location RIGHT KNEE Color of Body fluid Colorless [facility] Appearance of Body fluid CLEAR [facility] Erythrocytes [#/volume] in Body fluid by Automated count 0.005 1 0*6/uL 0-0.005 N [facility] @Enter RBC background count for patient run 0.000@Enter wBC background count for patient run 0.000 Leukocytes [#/volume] in Body fluid by Automated count 0.120 10* 3/uL 0-0.005 Above high normal [facility] Mononuclear cells [#/volume] in Body fluid by Automated count 86.7 % [facility] Mononuclear cells/100 leukocytes in Body fluid 0.104 10*3/uL [facility] 13.30.016 ID Date Data Source [id number] 11/14/2020 01:49:00 PM [facility] Patient Name: NATO STYLES OB: 1950 Sex: F Pt Unit #: [id number] [facility] Provider: Visit Date/Time: 11/14/20 Primary Insurance: MEDICARE [employer] Secondary Insurance: [employer] Intake Vital Signs 11/14/20 13:51 Current Height 5 ft 4 in Current Weight 211 lb Weight Measurement Method Stated by Patient BMI 36.2 BP 142/92 Blood Pressure Location Rt brachial Position Sitting Respiration 18 Pulse 85 Pulse Strength Normal Pulse Source Pulse Oximeter Temp 96.5 F L Temp Source Oral Pulse Oximetry (%) 99 Oxygen Delivery Method room air Intake Visit Reasons: Knee pain Is patient in pain?: Yes (right knee) Pain scale (1-10): 10 Allergies bupropion [From WELLBUTRIN] Adverse Reaction (Intermediate, Verified 06/02/20 21:10) Depression HIV Testing Offer - ages 13-64 Requirement for HIV testing offer been met?: Patient reports past refusal Coronavirus Screening Screening Are you currently positive or on isolation for COVID ?: No Do you have any NEW signs of one or more of the following?: no symptoms Do you have NEW signs of at least two of the following?: no symptoms PFSH Medical History Achilles tendinitis, left leg Acquired hypothyroidism (01/16/12) Anxiety Attention deficit hyperactivity disorder, 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 CAD (coronary artery disease) (04/16/18) Constipation due to slow transit Coronary atherosclerosis of [place] coronary vessel (12/06/13) Diverticulitis GERD without esophagitis (04/23/18) Hypokalemia (10/09/18) Impacted cerumen Insomnia Lobular carcinoma of breast, stage 1 Lymphedema of left lower extremity Major depressive disorder menarche 14 [id number] Migraine Headaches Mixed hyperlipidemia (12/06/13) Moderate recurrent major depression Obesity Obstructive sleep apnea (adult) (pediatric) (12/06/13) Obstructive sleep apnea syndrome Plantar fasciitis, left (10/13/18) Reactive depressive psychosis Rosacea Vitamin D deficiency Surgical History History of ankle surgery History of arthroscopy of left knee History of bilateral mastectomy History of cardiac cath History of cholecystectomy History of colonoscopy (08/11/14) History of hysterectomy History of left breast biopsy History of right knee surgery History of sinus surgery Status post tubal ligation Family History Mother No problems noted. Father Diabetes Congestive heart failure, Onset Age: 82 Hypertension AUNT No problems noted. UNCLES No problems noted. UNCLES No problems noted. Social History Does the Patient have a Healthcare Proxy: No Does Patient have a DNR?: No Does Patient have a Living Will?: No Does the Patient have a MOLST?: No Advance Directives on File or in chart?: No adopted: No household members: spouse housing: house marital status: lives independently: Yes highest education level completed: high school graduate service: No current occupational status: retired Hx Recent Travel (where): No well-balanced diet: daily caffeine: Yes high-fat food intake: 0-1 times daily daily servings fruits/ve-4 daily servings of milk/calcium: 2-4 eating out: 1-3 times/week Smoking Status: Never smoker alcohol intake: never substance use type: does not use rodney/denominational: Voodoo special rodney needs: Yes seatbelt use: always drive intox or ride w/ intox frontload driver: No water heater temp set < 120 deg: Yes working smoke detector in home: Yes fire extinguisher in home: Yes carbon monox detector in home: Yes firearms in home: Yes firearms unloaded and locked: Yes do you feel safe at home: Yes victim of physical abuse: No victim of emotional abuse: No victim of sexual abuse: No would you like helpful sources: No HPI Additional HPI HPI Details: Established patient, is a 70 year old female here for right knee pain. Approximately 1 month ago the right knee pain began primarily along the medial compartment. The pain does not radiate. She denies any neurological signs or symptoms. At home she tried has tried a compression sleeve, Lidocaine patches, and taking Aleeve before going to work every morning. Today, 11/14/2020, she took QUID 200mg Ibuprofen that wore off around noon. She noticed a significant increase in pain and was unable to ambulate into the office without assistance. NEW NOTE : -The patient this is her first onset of localized severe right knee pain. 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 She has no history of gout or an inflammatory condition. She has had arthroscopy of the left knee but that is not problematic at this time. She was recently seen for right foot and ankle complaintsand prescribed orthotics. She denies fever chills or systemic illness. She has had Covid. Knee Pain Associated symptoms: Denies fever(s) Review of Systems Const Denies anorexia, Denies excessive sweating, Denies f atigue, Denies fever(s), Denies headache(s), Denies weight gain and Denies weight loss Eyes Denies blurry vision, Denies change in vision, Denies dry eyes, Denies irritation, Denies itchy eyesand Denies loss of vision ENT Denies abnormal hearing, Denies dysphagia, Denies dizziness, Denies headache(s), Denies lip swelling, Denies nasal congestion, Denies nasal discharge, Denies disequilibrium, Denies sinus pain,Denies sore throat and Denies throat swelling Card Denies chest pain, Denies pedal edema, Denies lightheadedness, Denies palpitations and Denies dyspnea Resp Denies cough, Denies excessive phlegm production, Denies pain on inspiration, Denies dyspnea and Denies wheezing GI Denies abdominal pain, Denies change in bowel habits, Denies dysphagia, Denies early satiety, Deniesheartburn, Denies diarrhea, Denies nausea and Denies vomiting Musc Denies back pain, Reports arthralgias (right knee ), Denies limited range of motion, Denies muscle cramps and Denies muscle weakness Skin/Breast Denies breast pain, Denies change in pigmentation, Denies lesions, Denies nail changes, Denies rash and Denies unusual bruising Neuro Denies abnormal hearing, Denies dizziness, Denies headache(s), Denies loss of vision, Denies memory loss, Denies paresthesias and Denies disequilibrium Psych Denies abnormal sleep pattern, Denies anxiety, Denies change in appetite, Denies depression, Denies irritability and Denies memory loss Endo Denies cold intolerance, Denies excessive sweating, Denies fatigue, Denies polyphagia, Denies polydipsia, Denies polyuria and Denies palpitations Shawn/Lymph Denies easy bleeding, Denies easy bruising and Denies lymphadenopathy Aller/Immun Denies urticaria, Denies itchy eyes, Denies lip swelling, Denies seasonal rhinorrhea, Denies throat swelling and Denies wheezing Exam Extrem Other: Patient is tearful and unable to mobilize on her own she finds it difficult to ambulate she had difficulty getting into the exam room and required assistance. She does not appear ill. The patient's BMI is 36.2. The knee is not hot but it is swollen. It is tender to even light touch both medially and laterally. The skin envelope appears normal. When asked to bend the knee she cannot move it however in observing her she bends the knee to 90 degrees sitting on the edge of the table and straightens it without assistance. Sensation to the foot and pulses in the foot are intact. X-rays of the knee are normal there is no significant arthritis nor erosive findings. Assessment Plan Assessment Plan (1) Knee pain: Code(s): M25.569 - Pain in unspecified knee Qualifiers: Chronicity: acute Laterality: right Qualified Code(s): M25.561 - Pain in right knee Additional Comments Additional Comments: The patient's presentation is atypical. I would recommend ruling out infectionor gout as these 2 conditions are the most probable for creating severe pain Informed consent was obtained and the patient's right knee was prepped in the [facility] sterile fashion. I infiltrated the skin with lidocaine and Marcaine mixture. I then aspirated with an 18-gauge needle approximately 12 mL of clear joint fluid. The knee was then infused with a mixture of Marcaine and Depo-Medrol. Within 20 minutes the patient was significantly improved she tolerated the procedure well. The sample will be sent for crystal analysis cell count and culture. She will follow-up on Friday. A work note is being given until then. She will weight-bear as tolerated. She will use a nonsteroidal such as Aleve only as directed. Orders Other Orders: Orders: BF Cell Count- CSF Joint Misc Today M25.569 Body Fluid Crystal Analysis Today M25.569 Gram stain Today M25.569 Body fluid culture Today M25.569 Coding Level of Care Code 41138 Est Pt Intermediate Comp Diagnoses Knee pain M25.561 Chronicity: acute Laterality: right CPT Codes DRAIN/INJ JOINT/BURSA W/O US - 64370 () METHYLPREDNISOLONE 40 MG INJ - J1030 (J1030) <Electronically signed by Everett Mc MD> 11/14/20 1524 Name Value Range Interpretation Code Description Data Alyssa rce(s) Supporting Document(s) ID Date Data Source [id number] 11/13/2020 03:06:00 PM EST [facility] [address] [place] [address] [phone] NAME SEX PT STATUS ACCOUNT NUMBER [employer] STYLES REG REF [id number] ORDERING PHYSICIAN LOCATION MEDICAL RECORD NO. Scott TERRIE Mcnamaraalanalaith RAD [id number] ATTENDING PHYSICIAN DATE OF DATE OF EXAM/TIME Verónica Leung RPA 1950 11/13/201228 TYPE / EXAM Xray Knee Comp 4 or more RT REASON FOR EXAM right knee pain, ortho COMPARISON: None FINDINGS: There is normal alignment and position of the bones of the right knee. No evidence for joint effusion is noted. No fractures are identified. However, cortical irregularity seen along the left medial tibial plateau may be on the basis of degenerative changes. Clinical correlation advised. IMPRESSION: 1. Unremarkable right knee. 2. Possible early degenerative changes on the left. Clinical correlation advised. Reported By Delvin August MD on 11/13/20 150 Signed By Delvin August MD on 11/13/20 1516 Date Time CC: Delvin August MD; Verónica Leung Techn: FROSA Trans Dt/Tm: Trans by: DT Prt Dt/Tm: [id number]: Total DLP = 0.00 mGy-cm Fluoroscopy Time (in secs): Name Value Range Interpretation Code Description Data Alyssa rce(s) Supporting Document(s) ID Date Data Source [id number] 10/25/2020 01:08:00 PM [facility] [address] [facility] [place] [address] [phone] NAME SEX PT STATUS ACCOUNT NUMBER [employer] STYLES REG REF [id number] ORDERING PHYSICIAN LOCATION MEDICAL RECORD NO. Leyla King CT [id number] ATTENDING PHYSICIAN DATE OF DATE OF EXAM/TIME Verónica Leung RPA 1950 10/25/20 / 1143 TYPE / EXAM CT Abd/pel w/ contrast REASON FOR EXAM abd pain CLINICAL HISTORY: 70 years of age, Female, abdominal pain. TECHNIQUE: Multiple helical images of the abdomen and pelvis obtained scanning from the hemidiaphragms to the symphysis pubis, following the administration of 100 mL of Isovue 300 IV contrast. Oral contrast was administered. Coronal and sagittal reformatted images performed. Dose reduction techniques were used including automated exposure control and adjustment of mA and/or KV according to patient size. Radiation dose: CTDI: 24.22 DLP: 1216 COMPARISON: 06/25/2015 FINDINGS: Pulmonary base: The lung bases clear. There is no pleural effusion. Cardiovascular base/vascular: The heart base is normal in size. There is no significant pericardialeffusion. The abdominal aorta is normal in course and caliber. Scattered atherosclerotic calcification is present. Liver: The liver is unremarkable. No hepatic masses or lesions are identified. Gallbladder and Biliary System: Gallbladder is not visualized, likely surgically resected. Prominence of the common bile duct measuring 10 mm in diameter, likely related to postoperative state. Pancreas: Normal. Spleen: Normal. Adrenal: Normal. Kidneys and Ureters: The kidneys are symmetric in size and enhancement. There is no evidence for obstructive uropathy. Urinary Bladder: The urinary bladder is unremarkable. Reproductive Organs: The uterus is surgically absent. Gastrointestinal: Oral contrast is seen extending to the distal small bowel. Small paraesophageal hiatal hernia is demonstrated. The stomach is otherwise under distended and grossly unremarkable. The small bowel is unremarkable. There is no evidence for obstruction. Scattered diverticula predominantly at the distal colon. No significant pericolonic fat infiltration present to suggest acute diverticulitis. Appendix: A normal air-filled appendix is identified. Peritoneum/Retroperitoneum: No significant intra-abdominal ascites or pneumoperitoneum is present. Lymphatic: Shotty retroaortic and mesenteric lymph nodes are present, a nonspecific finding. Musculoskeletal: Multilevel degenerative changes of the thoracolumbar spine is present with mild S-shaped curvature. Status post bilateral mastectomy. IMPRESSION: Mild colonic diverticulosis without evidence for diverticulitis. Reported By Corey Lima DO on 10/25/20 1308 Signed By Corey Lima DO on 10/25/20 1318 Date Time CC: LEANNA Rockwell Techn: EBEBR Trans Dt/Tm: Trans by: DT Prt Dt/Tm: : Total DLP = 1216.00 mGy-cm : Total Radiation Dose = 18.2400 mSv Lifetime Dose: 18.2400 mSv Name Value Range Interpretation Code Description Data Alyssa rce(s) Supporting Document(s) ID Date Data Source [id number] 10/24/2020 06:58:00 PM [facility] [address] [place] [address] [phone] NAME SEX PT STATUS ACCOUNT NUMBER [employer] STYLES REG REF [id number] ORDERING PHYSICIAN LOCATION MEDICAL RECORD NO. Leyla FLAT LOCKER [facility] [id number] ATTENDING PHYSICIAN DATE OF DATE OF EXAM/TIME Verónica Leung RPA 1950 10/24/201752 TYPE / EXAM Xray Abdomen 2V (Flat/Upright) REASON FOR EXAM abd pain COMPARISON: None FINDINGS: The bowel gas pattern is remarkable for some stool retention. There is no evidence of bowel obstruction or obvious free air. No definite abdominal mass or abnormal calcification is seen. Calcifications in the right upper quadrant are most likely due to ribs. The presence of cholelithiasis or possibly a left upper pole renal calculus cannot be excluded. Ultrasound of the abdomen is recommended for further evaluation. IMPRESSION: The presence of cholelithiasis or possibly a left upper pole renal calculus cannot be excluded. Ultrasound of the abdomen is recommended for further evaluation. Reported By Myra Ruiz MD on 10/24/201857 Signed By Myra Ruiz MD on 10/24/201901 Date Time CC: Myra Ruiz MD; Verónica Leung Techn: CUMME Trans Dt/Tm: Trans by: DT Prt Dt/Tm: : Total DLP = 0.00 mGy-cm Fluoroscopy Time (in secs): Name Value Range Interpretation Code Description Data Alyssa rce(s) Supporting Document(s) ID Date Data Source [id number] 10/24/2020 07:05:00 PM EST [facility] @10/24/20 1836: UA W/ MICRO added. RFLXG = UMIC CIF.Method of Collection:: Clean Catch @10/24/201904: Urine culture added. RFL XG = CULT.ADD. @10/24/201835: UA W/ MICRO added. RFLXG = UMIC CIF.Method of Collection:: Clean Catch Name Value Range Interpretation Code Description Data Alyssa rce(s) Supporting Document(s) Color of Urine [facility] Appearance of Urine CLEAR [facility] pH of Urine by Test strip 6.5 5-8 [facility] Specific gravity of Urine by Refractometry 1.015 1.005-1.030 [facility] Leukocyte esterase [Presence] in Urine by Test strip NEGATIVE Abnormal (applies to non-numeric results) [facility]A Culture has been added to this specimen per established criteria Nitrite [Presence] in Urine by Test strip NEGATIVE [facility] Protein [Presence] in Urine by Test strip NEGATIVE [facility] Glucose [Mass/volume] in Urine by Automated test strip NEGATIVE NEG ATIVE [facility] Ketones [Presence] in Urine by Test strip NEGATIVE [facility] Urobilinogen [Presence] in Urine 0.2-1 EU/dl [facility] Bilirubin.total [Presence] in Urine by Automated test strip NEGATIVE [facility] Erythrocytes [#/volume] in Urine by Test strip NEGATIVE NEGATIVE [facility] URINE MICROSCOPIC? (CIF) Microscopic Added [facility] ID Date Data Source [id number] 10/25/2020 01:16:00 PM EST [facility] @10/24/20 1836: UA W/ MICRO added. RFLXG = UMIC CIF.Method of Collection:: Clean Catch @10/24/201904: Urine culture added. RFL XG = CULT.ADD. @10/24/20 1836: UA W/ MICRO added. RFLXG = UMIC CIF.Method of Collection:: Clean Catch Name Value Range Interpretation Code Description Data Alyssa rce(s) Supporting Document(s) Bacteria identified in Urine by Culture [facility] ID Date Data Source [id number] 10/24/2020 07:05:00 PM [facility] @10/24/20 1836: UA W/ MICRO added. RFLXG = UMIC CIF.Method of Collection:: Clean Catch @10/24/20 1905: Urine culture added. RFL XG = CULT.ADD. @10/24/20 1836: UA W/ MICRO added. RFLXG = UMIC CIF.Method of Collection:: Clean Catch Name Value Range Interpretation Code Description Data Alyssa rce(s) Supporting Document(s) Erythrocytes [#/volume] in Urine by Manual count OCCASIONAL 0-5 [facility] Leukocytes [#/volume] in Urine by Manual count 1-2 /hpf 0-5 [facility] Cells [Type] in Urine sediment by Light microscopy [facility] ID Date Data Source [id number] 10/29/2020 12:08:00 AM [facility] Name Value Range Interpretation Code Description Data Alyssa rce(s) Supporting Document(s) Thyrotropin receptor Ab [Units/volume] in Serum 17.14 [iU]/L <=2.00 Above high normal [facility] This test was performed using the TRAb A ntibody ELISAmethod which is standardized against the [facility] centerbInternational Standard 90/672 and is reported inInternational Units (IU/L). The reference rangereported was established specifically for this testmethod.THIS TEST WAS PERFORMED AT:[facility] [place], [place] [address]PONCHO HARRIS MD,PHD ID Date Data Source [id number] 10/29/2020 12:08:00 AM [facility] Name Value Range Interpretation Code Description Data Alyssa rce(s) Supporting Document(s) Thyroid Peroxidase Abs 69 [IU]/mL <9 Above high normal [facility] THIS TEST WAS PERFORMED AT:[facility] [address] [id number] MERATI,MD ID Date Data Source [id number] 10/29/2020 12:08:00 AM [facility] Name Value Range Interpretation Code Description Data Alyssa rce(s) Supporting Document(s) Thyroglobulin Ab [Units/volume] in Serum or Plasma 955 [IU]/mL < or = 1 Above high normal [facility] Thyroglobulin [Mass/volume] in Serum or Plasma <0.1 ng/mL [facility] Reference Range: Intact Thyro id 2.8-40.9 Athyrotic <0.1 Note: Abnormal flagging is based on the reference interval for patients with intact thyroid.This test was performed using the Inaurachemiluminescent method. Values obtained fromdifferent assay methods cannot be usedinterchangeably. Thyroglobulin levels, regardlessof value, should not be interpreted as absoluteevidence of the presence or absence of disease.This specimen was found to contain anti-thyroglobulinantibodies. The presence of these autoantibodies maycause falsely low thyroglobulin values. In Tg-antibodypositive patients the thyroglobulin by tandem massspectrometry (test code 54969 - Thyroglobulin,LC/MS/MS; or panel test code 20577 - Thyroid Cancer(Thyroglobulin) Monitoring) test is recommendedbecause it has no interference from autoantibodies.For additional information, please refer tohttp://education.[employer]/faq/QRK841(This link is being provided for informational/educational purposes only.)THIS TEST WAS PERFORMED AT:[facility] [address]ERYN MORRELL MD ID Date Data Source [id number] 10/24/2020 05:51:00 PM EST [facility] Name Value Range Interpretation Code Description Data Alyssa rce(s) Supporting Document(s) Leukocytes [#/volume] in Blood by Automated count 4.9 10*3/uL 4.45-10 .71 [facility] Erythrocytes [#/volume] in Blood by Automated count 4.17 10*6/uL 4.20-5.40 Below low normal [facility] Hemoglobin [Moles/volume] in Blood 12.0 g/dL 10.7-15.4 [facility] Hematocrit [Volume Fraction] of Blood by Automated count 36.8 % 37-47 Below low normal [facility] Erythrocyte mean corpuscular volume [Ent itic volume] in Cord blood by Automated count 88.2 fL 80-96 N [facility] ital Erythrocyte mean corpuscular hemoglobin [Entitic mass] by Automated count 28.8 pg 27-31 N [facility] l Erythrocyte mean corpuscular hemoglobin concentration [Mass/volume] in Cord blood 32.6 g/dL 33-37 Below low normal [facility] Erythrocyte distribution width [Entitic volume] by Automated count 14 % 11-15 N [facility] Platelets [#/volume] in Blood by Automated count 391 10*3/uL 130-472 N [facility] Platelet mean volume [Entitic volume] in Blood 8.9 fL 9.1-13. 1 Below low normal [facility] Neutrophils/100 leukocytes in Blood by Automated count 42.6 % 41- 77 N [facility] Neutrophils [#/volume] in Blood by Automated count 2.1 U 1.7-7.6 N [facility] Lymphocytes/100 leukocytes in Blood by Automated count 43.0 % 14- 46 N [facility] Lymphocytes [#/volume] in Blood by Automated count 2.1 U 0.6-4.6 N [facility] Monocytes/100 leukocytes in Blood by Automated count 10.8 % 4-12 N [facility] Monocytes [#/volume] in Blood by Automated count 0.5 U 0.2-1.2 N [facility] Eosinophils/100 leukocytes in Blood by Automated count 2.2 % 0-7 N [facility] Eosinophils [#/volume] in Blood by Automated count 0.1 U 0.0-0.5 N [facility] Basophils/100 leukocytes in Blood by Automated count 1.2 % 0.4-1 .3 N [facility] Basophils [#/volume] in Blood by Automated count 0.1 U 0.0-0.2 N [facility] NUCLEATED RED BLOOD CELL 0 % [facility] NUCLEATED RED BLOOD CELL# [address] [facility] Immature granulocytes [Presence] in Blood by Automated count 0-2 N [facility] Immature granulocytes [#/volume] in Blood by Automated count 0.0 U 0-0.1 N [facility] Manual Differential panel - Blood NO [facility] ID Date Data Source [id number] 10/24/2020 06:46:00 PM EST [facility] Name Value Range Interpretation Code Description Data Alyssa rce(s) Supporting Document(s) Urea nitrogen [Mass/volume] in Serum or Plasma 15 mg/dL 9-23 N [facility] Sodium [Moles/volume] in Serum or Plasma 141 mmol/L 132-146 N [facility] Potassium [Moles/volume] in Serum or Plasma 4.1 mmol/L 3.5-5.5 N [facility] Chloride [Moles/volume] in Serum or Plasma 108 mmol/L 99-109 N [facility] Carbon dioxide, total [Moles/volume] in Serum or Plasma 28 mmol/L 20 -31 N [facility] Anion gap in Serum or Plasma 9 mmol/L 8-16 N [facility] Glucose [Mass/volume] in Serum or Plasma 110 mg/dL 74-106 Above high normal [facility] Creatinine 0.8 mg/dL 0.5-1.[address] [facility] Glomerular filtration rate/1.73 sq M.pre dicted [Volume Rate/Area] in Serum or Plasma Greater Than 60 ABOVE 60 [facility] Alanine aminotransferase [Enzymatic acti vity/volume] in Serum or Plasma by With P-5'-P 26 U/L 10-49 [facility] ital Aspartate aminotransferase [Enzymatic ac tivity/volume] in Serum or Plasma by With P-5'-P 23 U/L 0-33 [facility] pital Alkaline phosphatase [Enzymatic activity/volume] in Serum or Plasma 119 U/L 45-129 N [facility] Calcium [Mass/volume] in Serum or Plasma 9.1 mg/dL 8.5-10.1 [facility] Bilirubin.total [Mass/volume] in Serum or Plasma 0.2 mg/dL 0.3-1.2 Below low normal [facility] Albumin [Mass/volume] in Serum or Plasma by Bromocresol purple (BCP) dye binding method 3.7 g/dL 3.2-4.8 N [facility] ital Protein [Mass/volume] in Serum or Plasma 7.5 g/dL 5.7-8.2 [facility] ID Date Data Source [id number] 10/24/2020 06:46:00 PM EST [facility] Name Value Range Interpretation Code Description Data Alyssa rce(s) Supporting Document(s) C reactive protein [Mass/volume] in Serum or Plasma 3.1 mg/L 0.0-5. 0 N [facility] ID Date Data Source [id number] 10/24/2020 06:46:00 PM [facility] Name Value Range Interpretation Code Description Data Alyssa rce(s) Supporting Document(s) Thyroxine (T4) free [Mass/volume] in Serum or Plasma 0.81 ng/dL 0.89-1.76 Below low normal [facility] ID Date Data Source [id number] 10/24/2020 06:46:00 PM [facility] Name Value Range Interpretation Code Description Data Alyssa rce(s) Supporting Document(s) Thyrotropin [Units/volume] in Serum or Plasma by Detec tion limit <= 0.005 mIU/L 0.39 u[iU]/mL 0.35-5.50 [facility] al ID Date Data Source [id number] 10/24/2020 04:22:00 PM [facility] Patient Name: NATO STYLES OB: 1950 Sex: F Pt Unit #: [id number] Location:[facility] Provider: Visit Date/Time: 10/24/20 Primary Insurance: MEDICARE [employer] Secondary Insurance: AARP Intake Vital Signs 10/24/20 16:22 Current Height 5 ft 4 in Current Weight 212 lb Weight Measurement Method Standing Scale BMI 36.3 BP 140/88 Blood Pressure Location Lt brachial Position Sitting Respiration 18 Pulse 76 Pulse Strength Normal Pulse Source Pulse Oximeter Temp 98 F Temp Source Tympanic Pulse Oximetry (%) 97 Oxygen Delivery Method room air Intake Visit Reasons: Diverticulitis Nurse Note: 70 year old female presents today with complaints of abdominal pain. Patient thinks her Diverticulitis may be flaring. Patient notes pain across the entire abdomen. Patient notes pain started last night. Patient ate at [employer] last night and had spaghetti and soup and salad. Patient history of hiatal hernia. Patient notes she feels like she has to move bowels but cannot. Patient had bowel movement last yesterday. Patient notes she is voiding well and has no pain or burning upon urination and no frequency. [employer] Puzzle [employer] Requ ired: No Accompanied by: self Is patient in pain?: Yes (Abdominal pain) Pain scale (1-10): 4 Allergies bupropion [From WELLBUTRIN] Adverse Reaction (Intermediate, Verified 06/02/20 21:10) Depression Medications - Last Reconciled 10/24/20 by Leyla King NP amoxicillin-pot clavulanate 875-125 mg 1 tab PO BID cholecalciferol (vitamin D3) 2,000 units PO DAILY clonidine HCl TAKE 1 TABLET AT BEDTIME famotidine 20 mg PO BID lactobacillus combination no.4 3,000 mmu cells PO BID levothyroxine (Synthroid) 75 mcg PO DIRECTED metronidazole 500 mg PO BID omeprazole 40 mg PO QDAY simvastatin 10 mg PO DAILY Synthroid (levothyroxine) 50 mcg PO DIRECTED NS venlafaxine ER 75 mg PO BID Post menopausal: Yes Fall Risk Medications:: Psychotropics HIV Testing Offer - ages 13-64 HIV testing Offer: No Requirement for HIV testing offer been met?: Not in age range Hep C Testing Offered: Yes Hep C Requirement met: Refuses today SBIRT Annual Questionnaire Are you currently in recovery for alcohol or substance use?: No How many times in the past year have you had 4 or more drinks in a day?: None How many times in the past year have you used a recreational drug or used a prescription medication for nonmedical reasons?: None Do you need a note to return Do you need a note to return to daycare/school/sports/work: No Coronavirus Screening Screening Have you traveled outside of [facility] or [facility] in the last 14 days.: No Has patient experienced coronavirus symptoms: No [facility] Medical History (Updated 10/24/20 @ 20:22 by Leyla King NP) Achilles tendinitis, left leg Acquired hypothyroidism (01/16/12) Anxiety Attention deficit hyperactivity disorder, 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 CAD (coronary artery disease) (04/16/18) Constipation due to slow transit Coronary atherosclerosis of [place] coronary vessel (12/06/13) Diverticulitis GERD without esophagitis (04/23/18) Hypokalemia (10/09/18) Impacted cerumen Insomnia Lobular carcinoma of breast, stage 1 Lymphedema of left lower extremity Major depressive disorder menarche 14 [id number] Migraine Headaches Mixed hyperlipidemia (12/06/13) Moderate recurrent major depression Obesity Obstructive sleep apnea (adult) (pediatric) (12/06/13) Obstructive sleep apnea syndrome Plantar fasciitis, left (10/13/18) Reactive depressive psychosis Rosacea Vitamin D deficiency Surgical History (Updated 10/04/20 @ 11:48 by CORINNE Rider) History of ankle surgery History of arthroscopy of left knee History of bilateral mastectomy History of cardiac cath History of cholecystectomy History of colonoscopy (08/11/14) History of hysterectomy History of left breast biopsy History of right knee surgery History of sinus surgery Status post tubal ligation Family History Mother No problems noted. Father Diabetes Congestive heart failure, Onset Age: 82 Hypertension AUNT No pro blems noted. UNCLES No problems noted. UNCLES No problems noted. Social History (Updated 03/04/19 @ 08:45 by Marie Davison) Does the Patient have a Healthcare Proxy: No Does Patient have a DNR?: No Does Patient have a Living Will?: No Does the Patient have a MOLST?: No Advance Directives on File or in chart?: No adopted: No household members: spouse housing: house marital status: lives independently: Yes highest education level completed: high school graduate service: No current occupational status: retired Hx Recent Travel (where): No well-balanced diet: daily caffeine: Yes high-fat food intake: 0-1 times daily daily servings fruits/ve-4 daily servings of milk/calcium: 2-4 eating out: 1-3 times/week Smoking Status: Never smoker alcohol intake: never substance use type: does not use rodney/denominational: Voodoo special rodney needs: Yes seatbelt use: always drive intox or ride w/ intox frontload driver: No water heater temp set < 120 deg: Yes working smoke detector in home: Yes fire extinguisher in home: Yes carbon monox detector in home: Yes firearms in home: Yes firearms unloaded and locked: Yes do you feel safe at home: Yes victim of physical abuse: No victim of emotional abuse: No victim of sexual abuse: No would you like helpful sources: No HPI Additional HPI HPI Details: 70-year-old female patient presents to the clinic today for complaints of abdominal pain. Patient reports that she feels as if she has diverticulitis. She reports that she has had this previously, but not for several years. She reports that she feels as if it was brought on after eating a meal at the [employer]. She states that approximately 2 days ago she did have a meal at the [employer] with her , and then had some sort of supper at home. She then woke up this morning and did have chicken and rice soup for lunch, however continues to have abdominal pain and denies that she has dysuria or any sort of bloating or excess acid in her throat/esophagus. Review of Systems Const Denies anorexia, Denies body aches, Denies chills, Denies excessive sweating, Denies fatigue, Deniesfever(s), Denies headache(s), Denies increased appetite, Denies poor appetite, Denies weakness, Denies weight gain and Denies weight loss Eyes D enies eye discharge, Denies dry eyes, Denies floaters, Denies itchy eyes, Denies other visual disturbances, Denies seeing flashes and Denies photophobia ENT Denies dysphagia, Denies vertigo, Denies dizziness, Denies headache(s), Denies hearing loss, Denies hoarseness, Denies lip swelling, Denies nasal congestion, Denies nasal discharge, Denies nasal obstruction, Denies odynophagia, Denies post nasal drip, Denies tinnitus, Denies sinus pain, Denies sinus pressure, Denies sore throat, Denies throat swelling and Denies tongue swelling Card Denies chest pain, Denies chest pain at rest, Denies diaphoresis, Denies syncope, Denies pedal edema, Denies edema, Denies irregular heart rhythm, Denies leg ulcers, Denies leg edema, Denies palpitations, Denies dyspnea and Denies dyspnea on exertion Resp Denies chest congestion, Denies cough, Denies dyspnea and Denies dyspnea on exertion GI Reports abdominal pain (diffuse), Denies melena, Denies hematochezia, Denies change in bowel habits,Denies constipation, Denies dysphagia, Denies diarrhea, Denies nausea, Denies odynophagia and Deniesvomiting Musc Denies abnormal gait, Denies back pain, Denies myalgias, Denies arthralgias, Denies joint swelling and Denies numbness Skin/Breast Denies change in hair, Denies dry skin, Denies hirsutism, Denies alopecia, Denies non-healing lesions, Denies photosensitivity, Denies skin swelling, Denies sores and Denies unusual bruising Neuro Denies abnormal movements, Denies abnormal speech, Denies abnormal gait, Denies behavioral changes, Denies confusion, Denies vertigo, Denies dizziness, Denies syncope, Denies headache(s), Denies localized weakness, Denies memory loss, Denies numbness, Denies other visual disturbances, Denies restless legs, Denies convulsions, Denies seizure- like activity, Denies paresthesias and Denies weakness Psych Denies anxiety, Denies behavioral changes, Denies confusion, Denies depression, Denies irritability,Denies memory loss, Denies panic attacks, Denies hallucinations, Denies tactile hallucinations, Denies homicidal ideation and Denies suicidal ideation Endo Denies excessive sweating, Denies fatigue, Denies increase in ring/shoe/hat size and Denies palpitations Aller/Immun Denies itchy eyes, Denies lip swelling, Denies throat swelling and Denies tongue swelling Exam Const General: cooperative, comfortable and no acute distress Nutritional Appearance: obese Orientation: alert, awake and oriented x3 HENMT Head: normal to inspection, normocephalic and atraumatic Ears: hearing grossly normal bilaterally, external ears normal, TM's normal bilaterally and EAC's normal General nose exam: external nose normal, nares normal, nasal mucous membranes and turbinates normal and septum normal Face and sinus: normal facial exam and face symmetric Mouth: oral mucosae normal, lip normal, tongue normal, oropharynx normal and moist mucous membranes Throat: posterior oropharynx normal and uvula midline Eyes Conjunctivae: conjunctivae normal Sclera: sclerae normal Pupils: PERRL EOM: EOM intact bilaterally Neck Neck: normal visual inspection, full ROM, trachea midline and supple Chest Chest: normal palpation of entire chest wall Resp Effort Inspection: normal respiratory effort, able to speak in complete sentences, no audible wheezes, no cough, no grunting, not labored, no nasal flaring and no pursed lip breathing Auscultation: clear to auscultation bilaterally Cardio Rate: regular rate Rhythm: regular rhythm Heart Sounds: S1 normal, S2 normal, no click, no gallops, no murmurs and no rubs GI Inspection: Yes normal to inspection and Yes obesity Palpation: soft, no hepatosplenomegaly, guarding in the LUQ and tender in the RLQ, in the LUQ and inthe RUQ Auscultation: hypoactive bowel sounds Musc Cervical Spine: cervical ROM normal Thoracic/Lumbar Spine: thoraco-lumbar ROM normal Skin Lesions: no lesions Rashes: no rashes Trauma: no lacerations or abrasions Wounds: no wounds Hair: normal Nails: normal Neuro General: patient alert, patient awake, patient oriented x3 and normal light touch, pain and propioception Extrem General: normal to inspection, full ROM, capillary refill normal and no joint enlargement Psych Appearance: gr ossly normal and well kempt Mental Status: mental status grossly normal Speech and Movement: speech and movement normal Mood: congruent mood Affect: normal affect Attitude: cooperative Thought Process: normal Assessment Plan Assessment Plan (1) Diverticulitis: Code(s): K57.92 - Diverticulitis of intestine, part unspecified, without perforation or abscess without bleeding Plan - Leyla King NP: Discussed with patient that while she may indeed have some diverticulitis, she does not have fever. Discussed with her that this care would be to get basic labs and x-ray and discussed antibiotics based on the results. Patient is agreeable to this plan of care will put in orders for CBC CMP CRP and abdominal x-ray. Will call patient at home with results as they are available. (2) Constipation due to slow transit: Status: Chronic Code(s): K59.01 - Slow transit constipation SNOMED Code(s): 58532278 Category: Medical Plan - Leyla King NP: Patient reports that she has a history of constipation. States that she has taken MiraLAX in the past and is helpful for her however she is not taking it lately. Discussed with her that constipation will likely not resolve on its own will have to have some intervention. Discussed withher raw foods such as broccoli cabbage kale carrots and decreasing amount of processed foods. Discussed with her daily routine aerobic exercise. Orders Other Medications: New: metronidazole take with food, avoid alcohol 500 mg PO BID 14 tabs 0RF amoxicillin-pot clavulanate 875-125 mg 1 tab PO BID 14 tabs 0RF Other Orders: Orders: CMP 10/24/20 R10.9 CRP, C-REACTIVE PROTEIN 10/24/20 R10.9 CBC W AUTO DIFF 10/24/20 R10.9 UA W/ CULTURE IF ABNORMAL 10/24/20 R10.9 Xray Abdomen 2V (Flat/Upright) 10/24/20 R10.9 [place] [address] Est Pt Intermediate Comp Patient Type Established History Detailed Exam Detailed Medical Decision Making Moderate Complexity Diagnoses Diverticulitis K57.92 Constipation due to slow transit K59.01 <Electronically signed by Leyla King NP> 10/25/20 1534 Name Value Range Interpretation Code Description Data Alyssa rce(s) Supporting Document(s) ID Date Data Source [id number] 10/16/2020 02:14:00 PM [facility] Patient Name: CARRIRASTANATO OB: 1950 Sex: F Pt Unit #: [id number] Location:[facility] Provider: Visit Date/Time: 09/12/20 Primary Insurance: MEDICARE [employer] Secondary Insurance: [facility] Intake Nurse Note Intake Visit Reasons: Ear Wax Nurse Note: A moderate amount of cerumen flushed out of right ear with warm water. Pt tolerated thiswell. Assessment Plan Assessment Plan (1) Wax in ear: Code(s): H61.20 - Impacted cerumen, unspecified ear Orders Other Medications: Discontinued: [Cyclobenzaprine Hcl (Flexeril)] 10 mg PO TID 30 tabs 0RF sertraline 1 tab PO DAILY 90 tabs 3RF levothyroxine 75 mcg PO DAILY 90 tabs 1RF clonazepam 0.5 mg PO BID 60 tabs 0RF [Amox Tr/Potassium Clavulanate (Augmentin 875-125 Tablet)] 1 tab PO BID 30 tabs 0RF <Electronically signed by Verónica Muñoz> 10/17/20 1149 Name Value Range Interpretation Code Description Data Alyssa rce(s) Supporting Document(s) ID Date Data Source [id number] 10/13/2020 03:18:00 PM [facility] [address] [facility] [place] [address] [phone] NAME SEX PT STATUS ACCOUNT NUMBER NATO STYLES REG REF [id number] ORDERING PHYSICIAN LOCATION MEDICAL RECORD NO. Verónica Leung [id number] ATTENDING PHYSICIAN DATE OF DATE OF EXAM/TIME Verónica Leung [facility] Toni 1950 10/13/201147 TYPE / EXAM US Soft tiss head/neck/thyroid REASON FOR EXAM HYPOTHYROIDISM, FAM HX GRAVES/PROM LT LOBE CLINICAL HISTORY: 70 years of age, Female, . TECHNIQUE: 12 MHz linear array trans-cervical transducer was used to obtain multiple real-time axial and sagittal grayscale and Doppler images of the thyroid. Additionally use of color- flow Doppler ultrasound was obtained. COMPARISON: There are no prior studies available for comparison. FINDINGS: The right thyroid gland measures 4.2 x 1.6 x 1.5 cm, (AP x T x CC). The left thyroid gland measures 3.3 cm, (AP x T x CC). The isthmus measures 0.21 mm, (AP). The thyroid is inhomogenous without focal mass.. There are no nodules in the RIGHT thyroid. There are no nodules in the LEFT thyroid. There are no nodules in the isthmus. IMPRESSION: No thyroid nodule seen. Thyroid imaging categories. Criteria for fine needle aspiration versus follow up ultrasound. TI-RADS Categories: * 0 point = TR 1 - Benign = no followup required. * 1 - 2 point = TR 2 - Not Suspicious = no followup required * 3 points = TR 3 - Mildly Suspicious * If greater than or equal to 2.5 cm = fine-needle aspiration * If greater than or equal to 1.5 cm = followup ultrasound in one year * If less than 1.5 cm = no followup required, but can be considered as clinically indicated. * 4 - 6 points = TR 4 - Moderately Suspicious * If greater than or equal to 1.5 cm = fine-needle aspiration * If greater than or equal to 1.0 cm = followup ultrasound in one year * Is less than 1.0 cm = no followup required, but can be considered as clinically indicated * 7 or more points = TR 5 - Highly Suspicious * If greater than or equal to 1.0 cm = fine-needle aspiration * If greater than or equal to 0.5 cm = followup ultrasound in one year * Is less than 0.5 cm = no followup required, but can be considered as clinically indicated. Reference: "ACR Thyroid Imaging, Reporting And Data System (TI-RADS): White Paper of the ACR TI-RADS Committee" in the Journal of the [employer], 2017. Reported By Myra Ruiz MD on 10/13/20 1518 Signed By Myra Ruiz MD on 10/13/20 1520 Date Time CC: Myra Ruiz MD; Verónica Leung Techn: FREST Trans Dt/Tm: Trans by: DT Prt Dt/Tm: : Total DLP = 0.00 mGy-cm : Total Radiation Dose = 0.0000 mSv Lifetime Dose: 0 mSv Name Value Range Interpretation Code Description Data Alyssa rce(s) Supporting Document(s) ID Date Data Source [id number] 10/04/2020 07:06:00 AM [facility] Patient Name: NATO STYLES OB: 1950 Sex: F Pt Unit #: [id number] Location:[facility] Provider: Visit Date/Time: 10/04/20 Primary Insurance: MEDICARE [employer] Secondary Insurance: [facility] Intake Vital Signs 10/04/20 07:06 Current Height 5 ft 4 in Current Weight 209 lb Weight Measurement Method Standing Scale BMI 35.9 BP 124/76 Blood Pressure Location Lt brachial Position Sitting Respiration 18 Pulse 70 Pulse Strength Normal Pulse Source Pulse Oximeter Temp 98.5 F Temp Source Oral Pulse Oximetry (%) 98 Oxygen Delivery Method room air Intake-Medicare Annual Visit Reasons: Thyroid f/u Nurse Note: PT is here for a follow up on her thyroid. Her daughter just got diagnosed with Graves disease. Crossword Puzzle Maker Required: No Accompanied by: Self / Same as Patient Is patient in pain?: No Allergies bupropion [From WELLBUTRIN] Adverse Reaction (Intermediate, Verified 06/02/20 21:10) Depression Medications - Last Reconciled 10/04/20 by CORINNE Rider cholecalciferol (vitamin D3) 2,000 units PO DAILY clonidine HCl 0.1 mg PO HS famotidine 20 mg PO BID lactobacillus combination no.4 3,000 mmu cells PO BID letrozole 2.5 mg PO DAILY levothyroxine (Synthroid) 75 mcg PO DIRECTED omeprazole 40 mg PO QDAY simvastatin 10 mg PO DAILY Synthroid (levothyroxine) 50 mcg PO DIRECTED NS venlafaxine ER 75 mg PO BID Post menopausal: Yes Fall Risk History of falls: No HIV testing Offer: No Requirement for HIV testing offer been met?: Patient reports past refusal Hep C Testing Offered: No Hep C Requirement met: Patient reports past refusal SBIRT Annual Questionnaire Are you currently in recovery for alcohol or substance use?: No How many times in the past year have you had 4 or more drinks in a day?: None How many times in the past year have you used a recreational drug or used a prescription medication for nonmedical reasons?: None Coronavirus Screening Screening Have you traveled outside of [facility] or [facility] in the last 14 days.: No Has patient experienced coronavirus symptoms: No PFSH Medical History (Updated 10/04/20 @ 11:48 by CORINNE Singh) Achilles tendinitis, left leg Acquired hypothyroidism (01/16/12) Anxiety Attention deficit hyperactivity disorder, 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 CAD (coronary artery disease) (04/16/18) Constipation due to slow transit Coronary atherosclerosis of [place] coronary vessel (12/06/13) Diverticulitis GERD without esophagitis (04/23/18) Hypokalemia (10/09/18) Impacted cerumen Insomnia Lobular carcinoma of breast, stage 1 Lymphedema of left lower extremity Major depressive disorder menarche 14 [id number] Migraine Headaches Mixed hyperlipidemia (12/06/13) Moderate recurrent major depression Obesity Obstructive sleep apnea (adult) (pediatric) (12/06/13) Obstructive sleep apnea syndrome Plantar fasciitis, left (10/13/18) Reactive depressive psychosis Rosacea Vitamin D deficiency Surgical History (Updated 10/04/20 @ 11:48 by CORINNE Rider) History of ankle surgery History of arthroscopy of left knee History of bilateral mastectomy History of cardiac cath History of cholecystectomy History of colonoscopy (08/11/14) History of hysterectomy History of left breast biopsy History of right knee surgery History of sinus surgery Status post tubal ligation Family History Mother No problems noted. Father Diabetes Congestive heart failure, Onset Age: 82 Hypertension AUNT No problems noted. UNCLES No problems noted. UNCLES No problems noted. Social History (Updated 03/04/19 @ 08:45 by Marie Davison) Does the Patient have a Healthcare Proxy: No Does Patient have a DNR?: No Does Patient have a Living Will?: No Does the Patient have a MOLST?: No Advance Directives on File or in chart?: No adopted: No household members: spouse housing: house marital status: lives independently: Yes highest education level completed: high school graduate service: No current occupational status: retired Hx Recent Travel (where): No well-balanced diet: daily caffeine: Yes high-fat food intake: 0-1 times daily daily servings fruits/ve-4 daily servings of milk/calcium: 2-4 eating out: 1-3 times/week Smoking Status: Never smoker alcohol intake: never substance use type: does not use rodney/denominational: Voodoo special rodney needs: Yes seatbelt use: always drive intox or ride w/ intox frontload driver: No water heater temp set < 120 deg: Yes working smoke detector in home: Yes fire extinguisher in home: Yes carbon monox detector in home: Yes firearms in home: Yes firearms unloaded and locked: Yes do you feel safe at home: Yes victim of physical abuse: No victim of emotional abuse: No victim of sexual abuse: No would you like helpful sour alen: No Medicare Annual Wellness Medication list Medications cholecalciferol (vitamin D3) 2,000 units PO DAILY clonidine HCl 0.1 mg PO HS famotidine 20 mg PO BID lactobacillus combination no.4 3,000 mmu cells PO BID levothyroxine (Synthroid) 75 mcg PO DIRECTED omeprazole 40 mg PO QDAY simvastatin 10 mg PO DAILY Synthroid (levothyroxine) 50 mcg PO DIRECTED NS venlafaxine ER 75 mg PO BID Allergies Allergies bupropion [From WELLBUTRIN] Adverse Reaction (Intermediate, Verified 06/02/20 21:10) Depression HPI Additional HPI HPI Details: MEDICARE ANNUAL WELLNESS NOT DONE THIS VISIT IT WAS DONE 03/30/20 70yo female with PMH hypothyroidism, LINDSEY, hyperlipidemia, depression, CAD, hx breast CA, GERD here for f/u and had labs done last month. Gerri states she is doing alright. Had COVID early 08/2020 - worse than a cold but not as bad as the flu. Worst part was the loss of smell/taste. Hypothyroidism - last TSH 0.03, FT4 1.03 - 08/29/20 - so has been alternating synthroid 50mcg with 75mcg. Due to have recheck end of october. Found out daughter has graves disease. Hyperlipidemia - currently on simvastatin 10mg daily. HDL 51, LDL 79, TG 210 LINDSEY - using cpap nightly Depression - feels overall that her moods have been okay, currently taking venlafaxine ER 75mg 2tabsdaily. PHQ 9 score 1 GERD - has been having more heartburn/reflux, attributes to bad eating the last few weeks. Has beentaking omeprazole before bed and famotidine before lunch. No longer taking letrozole. Review of Systems Const Denies chills, Reports fatigue (UP AND DOWN), Denies fever(s), Denies poor appetite and Reports weight gain (1LB SINCE LAST O.V.) Card Denies chest pain, Denies palpitations and Reports dyspnea (W/BENDING OVER ) Resp Denies cough, Reports dyspnea (W/BENDING OVER ) and Denies wheezing GI Denies abdominal pain and Reports heartburn (LATELY 5 OUT 7 NIGHTS CAN FEEL THE ACID COMING UP, TAKING TUMS) Musc Details: FEET HAVE BEEN BOTHERING HER, JUST SAW ORTHO Skin/Breast Denies change in hair and Denies dry skin Neuro Denies confusion Psych Reports abnormal sleep pattern (TAKES AWHILE TO FALL ASLEEP, HAS MELATONIN AT HOME BUT HAS NOT TRIED), Denies anxiety, Denies change in appetite, Denies confusion, Reports depression (AT TIMES), Denies difficulty concentrating, Denies auditory hallucinations, Denies irritability, Denies anhedonia, Denies panic attacks, Denies visual hallucinations and Denies suicidal ideation Endo Denies cold intolerance, Reports fatigue (UP AND DOWN) and Denies palpitations Aller/Immun Denies wheezing Exam Const General: cooperative, healthy appearing, comfortable, no acute distress, well developed and well groomed Nutritional Appearance: obese HENMT Ears: TM normal on the left and EAC's normal General nose exam: no nasal discharge Mouth: oropharynx normal and moist mucous membranes Throat: posterior oropharynx normal Eyes Eyelids: eyelids normal Conjunctivae: conjunctivae normal Sclera: sclerae normal Pupils: PERRL EOM: EOM intact bilaterally Neck Neck: no lymphadenopathy Thyroid: asymmetrical (PROMINENCE LT) Carotids: no bruits Resp Effort Inspection: normal respiratory effort Auscultation: clear to auscultation bilaterally, no crackles, lung sounds not diminished, no rhonchiand no wheezes Cardio Rhythm: regular rhythm Heart Sounds: S1 normal and S2 normal GI Palpation: soft, not firm, no guarding, no masses, not rigid and nontender Auscultation: normal bowel sounds Skin Lesions: no lesions Rashes: no rashes Neuro Cranial Nerves: CN's II-XII intact bilaterally Cognition: normal cognition Speech: speech normal Gait: normal gait Motor: muscle tone normal throughout Coordination: Romberg test normal Extrem Other: LYMPHEDEMA - LT LE, STOCKINGS ON Psych Appearance: grossly normal Mental Status: mental status grossly normal Speech and Movement: speech and movement normal Affect: normal affect Attitude: cooperative Thought Process: normal Thought Content: normal Assessment Plan Assessment Plan (1) Acquired hypothyroidism: Status: Chronic Onset Date: 01/16/12 Code(s): E03.9 - Hypothyroidism, unspecified SNOMED Code(s): 621366016 Category: Medical Plan - Verónica Leung RPA-C: Continue alternating synthroid 50mcg with 75mcg. Due for repeat TSH, FT4 end of october. Antibody labs ordered as daughter recently diagnosed with Graves. Prominence LT thyroid lobe - u/s ordered. Orders: Orders: Thyrotropin (TSH) Receptor Ab 1 Month Thyroglobulin Ab / Anti-Tg 1 Month TPO - Thyroid Peroxidase Abs 1 Month US Soft tiss head/neck/thyroid 1 Week (2) GERD without esophagitis: Status: Chronic Onset Date: 04/23/18 Code(s): K21.9 - Gastro-esophageal reflux disease without esophagitis SNOMED Code(s): 719475631 Category: Medical Plan - Verónica Leung RPA-C: Advised to take omeprazole 40mg 30min before dinner and take famotidine 20mg 30min before bed. Advised can take 40mg famotidine if needed. Discussed ant reflux measures. (3) Moderate recurrent major depression: Status: Chronic Code(s): F33.1 - Major depressive disorder, recurrent, moderate SNOMED Code(s): 675681984 Category: Medical Plan - Verónica Leung RPA-C: Stable on venlafaxine ER 75mg 2tabs daily. PHQ 9 score 1. (4) Mixed hyperlipidemia: Status: Chronic Onset Date: 12/06/13 Code(s): E78.2 - Mixed hyperlipidemia SNOMED Code(s): 532556087 Category: Medical Plan - CORINNE Rider: Discussed lab results. [place] risk score 3.3% Continue simvastatin 10mg daily. Encouraged decreased saturated fats, increase regular physical exercise. (5) Obstructive sleep apnea (adult) (pediatric): Status: Chronic Onset Date: 12/06/13 Code(s): G47.33 - Obstructive sleep apnea (adult) (pediatric) SNOMED Code(s): 58102952 Category: Medical Plan - CORINNE Rider: Compliant with cpap. Additional Comments Additional Comments: F/u 4months or sooner if needed. Advised to contact office if questions/concerns arise or s/s worsen. Orders Other Medications: Discontinued: letrozole Discontinued Reason: None 2.5 mg PO DAILY Coding Level of Care Code 17995 Est Pt Extended Comp Exam Detailed Diagnoses Acquired hypothyroidism E03.9 GERD without esophagitis K21.9 Moderate recurrent major depression F33.1 Mixed hyperlipidemia E78.2 Obstructive sleep apnea (adult) (pediatric) G47.33 <Electronically signed by Verónica Muñoz> 10/04/20 1150 Name Value Range Interpretation Code Description Data Alyssa rce(s) Supporting Document(s) ID Date Data Source [id number] 10/19/2020 07:39:49 AM EST [facility], PCName: Nato RoyConsueloOB: 2Provider: Jonna Contreras: 09/25/2020 Reason For VisitLeeannerijason Styles is here today for Right foot. Nato Styles is an established patient here for follow up. Patient presents WB in regular shoes. Patient states that she has been walking on the lateral aspect of the R foot. She notes that she had surgery in the past by [facility] because she was walking on the medial aspect of the R foot. Patient states that no matter what kind of shoe she wears the foot is in pain Surgery DOS: 09/28/13. Surgery Description: Rt realignment triple arthrodesis, perc hemisection heel cord lengthening and autogenous bone graft from proximal tibia. NKI. Patient is retired. Results/DataXRays were ordered, obtained and interpreted today in the office. Indication: pain/dysfunction. Side: Right Site: Foot Views: 3 Views AP/Lateral/Internal Oblique Findings: hardware is in good position Satisfactory post operative findings. AssessmentStatus post right realignment triple arthrodesis, percutaneous hemisection heel cord lengthening and autogenous bone graft from the proximal tibia.Date of surgery was 09/28/2015Preoperative diagnosis1. Right arthritic flatfoot deformity2. Right heel cord contracturePes planus, acquired, symptomaticRight midfoot osteoarthritis, primary Plan Stop: Letrozole TABS Dispense: 0 Days ; #: Sufficient; Refill: 0; FIGUEROA = N; Record; Last Updated By: Parvin Jaimes; 09/25/2020 3:26:22 PM Stop: Potassium Chloride ER 10 MEQ Oral Capsule Extended Release Rx By: SAVANNA GILMORE; Dispense: 30 Days ; #:60; Refill: 0; FIGUEROA = N; Record ; Last Updated By: Parvin Jaimes; 09/25/2020 3:26:22 PM X-Ray I Foot - 3 views (XRays were ordered, obtained and interpreted today in theoffice. Indication: pain/dysfunction.); Status:Complete; Done: 25Sep2020 Perform:SOS22; Due:09Oct2020; Last Updated By:Kenzie Cortes; 09/25/2020 3:28:32 PM;Ordered; For:Right foot pain; Ordered By:Frantz Contreras;rosalindWeight Bearing Status : Weight bearingLaterality: : Right Orthotics: Custom (SOS) (L3020) Treatment Treatment Status: Hold For - Orthotics CallBack (SOS) Requested for: 25Sep2020 Ordered;For: Achilles tendonitis, Primary osteoarthritis of right ankle or foot, Short Achilles tendon of right lower extremity; Ordered By: Frantz Contreras Performed: Order Comments: Lateral posting, accomodative - Right Due: 09Oct2020; Last Updated By: Parvin Jaimes; 09/25/2020 3:56:44 PM Physical Therapy (SOS) - General Treatment Treatment Status: Complete Done:25Sep2020 Ordered;For: Right foot pain; Ordered By: Frantz Contreras Performed: Order Comments: Gait retraining Due: [id number]; Last Updated By: Parvin Jaimes; 09/25/2020 3:45:47 PMTreat with modalities as indicated: : YesPT Protocol : Evaluate and treat as indicated, per protocol or as previously written.Duration: : Four WeeksPT Frequency : Two or three times a weekLaterality and Body Part : Right foot Patient is a 70-year-old female who presents today for follow-up evaluation. She is now 5 years status post surgery. She states that since surgery she has been walking on the outside of her right foot and feels that she wears through shoes. The patient has utilize multiple sets of over the counter orthotics and also has been utilizing a neutral shoe to try to adjust her gait and her wear pattern. She states that she continues to wear through the outside of her shoe significantly and she has some pain along the outside of her foot due to this.She describes the pain as mild to moderate, intermittent, aching. Worse with ambulation and better with rest.On physical exam she does seem to supinate her foot when ambulating. She does have some tenderness to palpation along the lateral column of her foot. She is neurovascular intact distally has a 2+ DP pulse.X-rays of the right foot were ordered, obtained and interpreted today in office. 3 views, AP/lateral/Oblique. Indication: Pain/dysfunction. These show hardware to be in good position. No acute osseous abnormality seen.Assessment:1. See assessment sectionPlan:The patient is been dealing with this issue for a couple of years and states that she has had good relief from custom-made orthotics in the past. She would like to have a new set of custom-m vinnie orthotics for her foot to help offload. We provided her a custom-made orthotic prescription for lateral posting and accommodation on the right foot.She was also open to attempting some gait retraining of the right foot with physical therapy. A prescription for this was given to her.We will have her follow-up as needed. Chief ComplaintNato Styles presents for pain/dysfunction in the LEFT achilles and RIGHT foot. Signatures Electronically signed by : Thi Webster; Sep 26 2020 8:59AM EST (Author) Electronically signed by : Louie Montes M.D.; Oct 03 2020 3:17PM EST Electronically signed by : Thi Webster; Oct 17 2020 9:47AM EST (Author) Electronically signed by : Louie Montes M.D.; Oct 19 2020 7:39AM EST Name Value Range Interpretation Code Description Data Alyssa rce(s) Supporting Document(s) ID Date Data Source [id number] 08/29/2020 03:35:00 PM EST [facility] Name Value Range Interpretation Code Description Data Alyssa rce(s) Supporting Document(s) Urea nitrogen [Mass/volume] in Serum or Plasma 15 mg/dL 9-23 N [facility] Sodium [Moles/volume] in Serum or Plasma 140 mmol/L 132-146 N [facility] Potassium [Moles/volume] in Serum or Plasma 4.6 mmol/L 3.5-5.5 [facility] Chloride [Moles/volume] in Serum or Plasma 107 mmol/L 99-109 N [facility] Carbon dioxide, total [Moles/volume] in Serum or Plasma 27 mmol/L 20 -31 N [facility] Anion gap in Serum or Plasma 11 mmol/L 8-16 [facility] Glucose [Mass/volume] in Serum or Plasma 95 mg/dL 74-106 N [facility] Creatinine 0.6 mg/dL 0.5-1.[address] [facility] Glomerular filtration rate/1.73 sq M.pre dicted [Volume Rate/Area] in Serum or Plasma Greater Than 60 ABOVE 60 [facility] Alanine aminotransferase [Enzymatic acti vity/volume] in Serum or Plasma by With P-5'-P 25 U/L 10-49 [facility] ital Aspartate aminotransferase [Enzymatic ac tivity/volume] in Serum or Plasma by With P-5'-P 19 U/L 0-33 [facility] pital Alkaline phosphatase [Enzymatic activity/volume] in Serum or Plasma 116 U/L 45-129 N [facility] Calcium [Mass/volume] in Serum or Plasma 9.4 mg/dL 8.5-10.1 [facility] Bilirubin.total [Mass/volume] in Serum or Plasma 0.2 mg/dL 0.3-1.2 Below low normal [facility] Albumin [Mass/volume] in Serum or Plasma by Bromocresol purple (BCP) dye binding method 3.6 g/dL 3.2-4.8 N [facility] ital Protein [Mass/volume] in Serum or Plasma 7.6 g/dL 5.7-8.2 N [facility] ID Date Data Source [id number] 08/29/2020 03:35:00 PM [facility] Name Value Range Interpretation Code Description Data Alyssa rce(s) Supporting Document(s) Triglycerides 210 mg/dL 0-150 Above high normal [facility] Cholesterol 172 mg/dL 120-200 N [facility] HDL Cholesterol 51 mg/dL [facility] HDL Less than 40 mg/dL: Major risk for CHDHDL Greater than 59 mg/dL: Low risk for CHD LDL Cholesterol, Calc 79 mg/dL 0-100 N [facility] ID Date Data Source [id number] 08/29/2020 03:35:00 PM [facility] Name Value Range Interpretation Code Description Data Alyssa rce(s) Supporting Document(s) Thyroxine (T4) free [Mass/volume] in Serum or Plasma 1.03 ng/dL 0.89- 1.76 [facility] ID Date Data Source [id number] 08/29/2020 03:35:00 PM [facility] Name Value Range Interpretation Code Description Data Alyssa rce(s) Supporting Document(s) Thyrotropin [Units/volume] in Serum or Plasma by Detec tion limit <= 0.005 mIU/L 0.03 u[iU]/mL 0.35-5.50 Below low normal [facility] spital @Review & document.Repeated by: Sparkle Rojas 08/29/20 1535.Result Confirmation: 0.03 uIU/mL ID Date Data Source [id number] 08/06/2020 04:54:00 PM [facility] CALLED TO ON 08/06 BY SVETA.Normal result is "BinaxNow Covid-19 Ag negative"BinaxNow Covid-19 Ag is a rapid lateral flowimmunochromatographic immunoassayThis test detects both viable(live) and non-viable, SARS-COVand SARS-COV-2.Positive test results do not differentiate between SARS-COVand [id number] results , from patients with symptom onset beyondseven days, should be treated as presumptive andconfirmation with a molecular assay, if necessary, forpatient managementIf the differentiation of specific SARS viruses and strainsis needed, additional testing, in consultation with [facility], is required.[employer] Covid-19 Ag positive Name Value Range Interpretation Code Description Data Alyssa rce(s) Supporting Document(s) ID Date Data Source [id number] 08/06/2020 12:00:00 AM EDT [facility] Name Value Range Interpretation Code Description Data Alyssa rce(s) Supporting Document(s) 2018-nCoV RNA XXX MUSA+probe-Imp [facility] This lab was ordered by [facility] and reported by [employer]. ID Date Data Source [id number] 08/06/2020 12:00:00 AM EDT [facility] Name Value Range Interpretation Code Description Data Alyssa rce(s) Supporting Document(s) SARS-CoV2 Rapid Antigen [facility] and reported by [facility]. ID Date Data Source [id number] 08/01/2020 07:41:00 PM EDT [facility] Normal result is "BinaxNow Covid-19 Ag n egative"BinaxNow Covid-19 Ag is a rapid lateral flowimmunochromatographic immunoassayThis test detects both viable(live) and non-viable, SARS-COVand SARS-COV-2.Positive test results do not differentiate between SARS-COVand [id number] results , from patients with symptom onset beyondseven days, should be treated as presumptive andconfirmation with a molecular assay, if necessary, forpatient managementIf the differentiation of specific SARS viruses and strainsis needed, additional testing, in consultation with [facility], is required.No Organisms Detected Name Value Range Interpretation Code Description Data Alyssa rce(s) Supporting Document(s) ID Date Data Source [id number] 08/01/2020 12:00:00 AM EDT [facility] Name Value Range Interpretation Code Description Data Alyssa rce(s) Supporting Document(s) 2019-nCoV RNA XXX MUSA+probe-Imp [facility] This lab was ordered by [facility] and reported by [employer] ID Date Data Source [id number] 08/01/2020 12:00:00 AM EDT [facility] Name Value Range Interpretation Code Description Data Alyssa rce(s) Supporting Document(s) SARS-CoV2 Rapid Antigen [facility] This lab was ordered by [facility] adama MAJANO and reported by [facility]. ID Date Data Source [id number] 06/13/2020 08:59:00 AM EDT [facility] Patient Name: NATO STYLES : 1950 Sex: F Pt Unit #: [id number] Location:[facility] Provider: Visit Date/Time: 06/13/20 Primary Insurance: MEDICARE [employer] Secondary Insurance: AARP Intake Vital Signs 06/13/20 08:59 Current Height 5 ft 4 in Current Weight 208 lb Weight Measurement Method Standing Scale BMI 35.6 BP 130/76 Blood Pressure Location Lt brachial Position Sitting Respiration 18 Pulse 74 Pulse Strength Normal Pulse Source Pulse Oximeter Temp 98.3 F Temp Source Oral Pulse Oximetry (%) 97 Oxygen Delivery Method room air Intake Visit Reasons: Leg Pain/injury Nurse Note: PT is here for a follow up on her cellulitis. She states her leg is doing much better. Crossword Puzzle Maker Required: No Accompanied by: Self / Same as Patient Is patient in pain?: No Allergies bupropion [From WELLBUTRIN] Adverse Reaction (Intermediate, Verified 06/02/20 21:10) Depression HIV Testing Offer - ages 13-64 Requirement for HIV testing offer been met?: Not in age range SBIRT Annual Questionnaire How many times in the past year have you had 4 or more drinks in a day?: None How many times in the past year have you used a recreational drug or used a prescription medication for nonmedical reasons?: None Do you need a note to return Do you need a note to return to daycare/school/sports/work: No Coronavirus Screening Screening Have you traveled outside of [facility] or [facility] in the last 14 days.: No Has patient experienced coronavirus symptoms: No 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 CAD (coronary artery disease) (04/16/18) Constipation due to slow transit Coronary atherosclerosis of [place] coronary vessel (12/06/13) Diverticulitis GERD without esophagitis (04/23/18) Hypokalemia (10/09/18) Impacted cerumen Insomnia Lobular carcinoma of breast, stage 1 Lymphedema of left lower extremity Major depressive disorder menarche 14 [id number] Migraine Headaches Mixed hyperlipidemia (12/06/13) Moderate recurrent major depression Obesity Obstructive sleep apnea (adult) (pediatric) (12/06/13) Obstructive sleep apnea syndrome Plantar fasciitis, left (10/13/18) Reactive depressive psychosis Rosacea Vitamin D deficiency Surgical History Biopsy of breast Cholecystectomy History of - surgery ( 11/2013) History of - surgery History of - surgery History of - surgery History of - surgery History of colonoscopy (08/11/14) History of hysterectomy History of sinus surgery Mastectomy, bilateral ( 11/2013) Status post tubal ligation Family History Mother No problems noted. Father Diabetes Congestive heart failure, Onset Age: 82 Hypertension AUNT No problems noted. UNCLES No problems noted. UNCLES No problems noted. Social History (Updated 03/04/19 @ 08:45 by Marie Davison) Does the Patient have a Healthcare Proxy: No Does Patient have a DNR?: No Does Patient have a Living Will?: No Does the Patient have a MOLST?: No Advance Directives on File or in chart?: No adopted: No household members: spouse housing: house marital status: lives independently: Yes highest education level completed: high school graduate service: No current occupational status: retired Hx Recent Travel (where): No well- balanced diet: daily caffeine: Yes high-fat food intake: 0-1 times daily daily servings fruits/ve-4 daily servings of milk/calcium: 2-4 eating out: 1-3 times/week Smoking Status: Never smoker alcohol intake: never substance use type: does not use rodney/denominational: Voodoo special rodney needs: Yes seatbelt use: always drive intox or ride w/ intox frontload driver: No water heater temp set < 120 deg: Yes working smoke detector in home: Yes fire extinguisher in home: Yes carbon monox detector in home: Yes firearms in home: Yes firearms unloaded and locked: Yes do you feel safe at home: Yes victim of physical abuse: No victim of emotional abuse: No victim of sexual abuse: No would you like helpful sources: No HPI Additional HPI HPI Details: 70yo female with PMH hypothyroidism, hyperlipidemia, LINDSEY, CAD, depression/anxiety, hx breast CA and GERD here for f/u on RT LE cellulitis. Gerri states she is doing much better. Initially see 06/01/20 d/t RT LE pain/swelling - u/s done to r/o DVT, u/s (-). Cephalexin was sent in to the pharmacy but Gerri did not realize this. 06/02/20 went to [facility] and given bactrim and cephalexin for 10days. Gerri states she finished bactrim 2d ago. Still has some cephalexin left as she sometimes has forgotten to take it as it is qid. Swelling is gone. Redness is better. Pain is gone. No warmth. Has been wearing stockings on and off, did wear the last 2 days. No noted side effects. Has been taking probiotic. Review of Systems Const Denies chills, Denies fever(s) and Denies poor appetite GI Denies abdominal pain, Denies diarrhea, Denies nausea and Denies vomiting Exam Const General: cooperative, healthy appearing, comfortable, no acute distress, well developed and well groomed Eyes EOM: EOM intact bilaterally Neck Neck: no lymphadenopathy Resp Effort Inspection: normal respiratory effort Auscultation: clear to auscultation bilaterally, no crackles, no rhonchi and no wheezes Cardio Rhythm: regular rhythm Heart Sounds: S1 normal and S2 normal Pulses: posterior tibial pulses present bilaterally not diminished and dorsalis pedis present bilaterally not diminished Neuro Cranial Nerves: CN's II-XII intact bilaterally Extrem Other: RT LE - NO CALF TENDERNESS, SWELLING RESOLVED, NO WARMTH/TENDERNESS, FAINT SCATTERED AREAS OFERYTHEMA/VASCULAR CHANGES, NO EVIDENCE OF CELLULITIS Psych Appearance: grossly normal Mental Status: mental status grossly normal Speech and Movement: speech and movement normal Mood: congruent mood Affect: normal affect Attitude: cooperative Thought Process: normal Assessment Plan Assessment Plan (1) Cellulitis of right lower extremity: Code(s): L03.115 - Cellulitis of right lower limb Plan - CORINNE Rider: RT LE cellulitis resolved - advised to finish cephalexin. Encouraged to wear compression stockings. Additional Comments Additional Comments: Advised to contact office if questions/concerns arise or s/s recur. Electronically Signed By: <Electronically signed by Verónica Muñoz> Date/Time Signed: 06/13/20 0931 Name Value Range Interpretation Code Description Data Alyssa rce(s) Supporting Document(s) ID Date Data Source [id number] 06/02/2020 09:41:00 PM EDT [facility] ED Physician Documentation NAME: NATO STYLES : 1950 AGE: 70 MR#: [id number] SERVICE DATE: 06/02/[address]: Anita Latham PRIMARY CARE DR: Verónica Leung ROOM#: HPI (Adult, General) <AUDRA Oliva - Last Filed: 06/02/20 22:43> General Chief Complaint: Skin/integument Stated Complaint: PAIN/SWELLING IN LEG/FOOT Time Seen by Provider: 06/02/20 21:07 Source: patient History of Present Illness Narrative: 70 year old white female with history of breast cancer, bilateral mastectomy, GERD, depression, Rosacea, mixed hyperlipidemia, LINDSEY, CAD, hypothyroidism, whoreports having swollen right leg with erythema, tenderness for about 3-4 days. She saw her family physician who ran CBC, BMP, d-dimer and Doppler ultrasound. all came back unremarkable. She used oneof her "water pills" today. without help. denies fever, headache, chest pain, shortness of breath, abdominal pain, any other complaints. Allergies/Home Meds Allergies Allergy/AdvReac Type Severity Reaction Status Date / Time bupropion [From WELLBUTRIN] AdvReac Intermediate Depression Verified 06/02/20 21:10 Home Medications Medication Instructions Recorded Confirmed Last Taken Type letrozole 2.5 mg PO DAILY tab 05/26/14 06/02/20 06/02/20 History cholecalciferol (vitamin D3) 2,000 unit PO DAILY #30 tab 02/05/17 06/02/20 06/02/20 History famotidine 20 mg tablet 20 mg PO BID #180 tab 10/21/19 06/02/20 06/02/20 Rx omeprazole 40 mg capsule,delayed 40 mg PO QDAY #90 cap 04/03/20 06/02/20 06/02/20 Rx release simvastatin 10 mg tablet 10 mg PO DAILY #90 tab 04/06/20 06/02/20 06/02/20 Rx brimonidine 0.33 % topical gel 1 applic TOP QDAY 04/12/20 06/02/20 06/02/20 History clonidine HCl 0.1 mg tablet 0.1 mg PO HS #90 tab 04/19/20 06/02/20 06/02/20 Rx Synthroid 75 mcg tablet 75 mcg PO QDAY #90 tab NS 05/30/20 06/02/20 06/02/20 Rx cephalexin [Keflex] 500 mg PO QID #40 cap 06/02/20 Unknown Rx la ctobacillus combination no.4 3,000 mmu cells PO BID #14 cap 06/02/20 Unknown Rx sulfamethoxazole-trimethoprim 1 tab PO Q12HR #20 tab 06/02/20 Unknown Rx [Bactrim DS] venlafaxine 75 mg PO BID 06/02/20 06/02/20 06/02/20 History PMH (from Triage) <AUDRA Oliva - Last Filed: 06/02/20 22:43> Patient Medical History PMH Reviewed/Updated as Needed: Yes PMH/PSH from Triage: Medical History (Updated 04/12/20 @ 07:41 by CORINNE Rider) Achilles tendinitis, left leg (Medical) 03/2017 Acquired hypothyroidism (Medical 01/16/12) E03.9 Anxiety (Medical) Attention deficit hyperactivity disorder, 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 (Medical) LT 04/2017 CAD (coronary artery disease) (Medical 04/16/18) Dr Jama Pt to have f/u echo d/t Mild to Moderate Will F/U w/ Dr Patton 04/16/18 Dr Jama to repeat US Pt will F/U w/ Dr Patton Constipation due to slow transit (Medical) K59.01 Coronary atherosclerosis of [place] coronary vessel (Medical 12/06/13) I25.10 Diverticulitis (Medical) (Medical) 1 missed AB GERD without esophagitis (Medical 04/23/18) K21.9 Hypokalemia (Medical 10/09/18) E87.6 Impacted cerumen (Medical) Insomnia (Medical) Lobular carcinoma of breast, stage 1 (Medical) LT BREAST, ER/FL (+), HER 2/OMA NEG 2013, HEM/ONC APPT 12/29/17 - CONTINUE FEMARA, RECOMMENDED TX FOR 10YRS, DEXA DUE SUMMER, F/U 6MO Lymphedema of left lower extremity (Medical) Major depressive disorder (Medical) menarche 14 (Medical) [id number] (Medical) Migraine Headaches (Medical) Mixed hyperlipidemia (Medical 12/06/13) E78.2 Moderate recurrent major depression (Medical) F33.1 Obesity (Medical) Obstructive sleep apnea (adult) (pediatric) (Medical 12/06/13) G47.33 Obstructive sleep apnea syndrome (Medical) Plantar fasciitis, left (Medical 10/13/18) SOS Given list of exercises to do, possible orthotic and or cortisone injections discussed f/u prn Reactive depressive psychosis (Medical) Rosacea (Medical) L71.9 Vitamin D deficiency (Medical) Surgical History (Updated 03/30/19 @ 11:52 by [email or web address]) Biopsy of breast (Surgical) site #2 -2014 left breast MRI guided Needle core bx. lobular carcinoma Cholecystectomy (Surgical) History of - surgery (Surgical 11/2013) History of - surgery (Surgical) CARDIAC CATH - TOLD 50% BLOCKAGE - [facility]; LAST SEEN IN [place] - DR. SIMS History of - surgery (Surgical) History of - surgery (Surgical) LT KNEE ARTHROSCOPY 03/2017 Right Triple Arthrodesis. History of - surgery (Surgical) Right Ankle 09/28/15 LEFT KNEE SCOPE 03/19/17 History of colonoscopy (Surgical 08/11/14) History of hysterectomy (Surgical) History of sinus surgery (Surgical) Mastectomy, bilateral (Surgical 11/2013) Invasive Lobular Carcinoma Stage 1 Status post tubal ligation (Surgical) Female History LMP:: Hysterectomy Hx Drug Resistant Infections Hx MRSA: (Methicillin-resistant Staphylococcus aureus): No Hx VRE (Vancomycin-resistant enterococci): No Hx C.Diff: No Hx CRKP: No Hx Other Resistant Infection?: No Isolation: Standard precautions Hx Recent Travel Out of the country within 10 days (where): No Hx Fever: No Hx Fever with a rash?: No Nurse screening for coronavirus: Recent Travel outside the No country (where) Has patient experienced No coronavirus symptoms Social History Does patient have suicidal/homicidal thoughts or ideation?: No Are you in a relationship with/Does anyone hit you, yell/swear at you, steal from you?: No Substance Use Hx Alcohol Use: Yes (social) Hx Substance Use: No Hx Substance Use Treatment: No Second Hand Smoke Exposure: No Smoking Status: Never smoker Vaccination History Hx/Date of Tetanus, Diphtheria Vaccination: Yes Hx/Date of Influenza Vaccination: Yes Hx/Date of Pneumococcal Vaccination: Yes Immunizations Up to Date: Yes <Alfie Snyder MD - Last Filed: 06/02/20 22:50> Patient Medical History PMH/PSH from Triage: Medical History (Updated 04/12/20 @ 07:41 by CORINNE Rider) Achilles tendinitis, left leg (Medical) 03/2017 Acquired hypothyroidism (Medical 01/16/12) E03.9 Anxiety (Medical) Attention deficit hyperactivity disorder, 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 (Medical) LT 04/2017 CAD (coronary artery disease) (Medical 04/16/18) Dr Jama Pt to have f/u echo d/t Mild to Moderate Will F/U w/ Dr Patton 04/16/18 Dr Jama to repeat US Pt will F/U w/ Dr Patton Constipation due to slow transit (Medical) K59.01 Coronary atherosclerosis of [place] coronary vessel (Medical 12/06/13) I25.10 Diverticulitis (Medical) (Medical) 1 missed AB GERD without esophagitis (Medical 04/23/18) K21.9 Hypokalemia (Medical 10/09/18) E87.6 Impacted cerumen (Medical) Insomnia (Medical) Lobular carcinoma of breast, stage 1 (Medical) LT BREAST, ER/FL (+), HER 2/OMA NEG 2013, HEM/ONC APPT 12/29/17 - CONTINUE FEMARA, RECOMMENDED TX FOR 10YRS, DEXA DUE SUMMER, F/U 6MO Lymphedema of left lower extremity (Medical) Major depressive disorder (Medical) menarche 14 (Medical) [id number] (Medical) Migraine Headaches (Medical) Mixed hyperlipidemia (Medical 12/06/13) E78.2 Moderate recurrent major depression (Medical) F33.1 Obesity (Medical) Obstructive sleep apnea (adult) (pediatric) (Medical 12/06/13) G47.33 Obstructive sleep apnea syndrome (Medical) Plantar fasciitis, left (Medical 10/13/18) SOS Given list of exercises to do, possible orthotic and or cortisone injections discussed f/u prn Reactive depressive psychosis (Medical) Rosacea (Medical) L71.9 Vitamin D deficiency ( Medical) Surgical History (Updated 03/30/19 @ 11:52 by [email or web address] [place]) Biopsy of breast (Surgical) site #2 -2013 left breast MRI guided Needle core bx. lobular carcinoma Cholecystectomy (Surgical) History of - surgery (Surgical 11/2013) History of - surgery (Surgical) CARDIAC CATH - TOLD 50% BLOCKAGE - [facility]; LAST SEEN IN [place] - DR. SIMS History of - surgery (Surgical) History of - surgery (Surgical) LT KNEE ARTHROSCOPY 03/2017 Right Triple Arthrodesis. History of - surgery (Surgical) Right Ankle 09/28/15 LEFT KNEE SCOPE 03/19/17 History of colonoscopy (Surgical 08/11/14) History of hysterectomy (Surgical) History of sinus surgery (Surgical) Mastectomy, bilateral (Surgical 11/2013) Invasive Lobular Carcinoma Stage 1 Status post tubal ligation (Surgical) Hx Recent Travel Nurse screening for coronavirus: Recent Travel outside the No country (where) Has patient experienced No coronavirus symptoms PFS <AUDRA Oliva - Last Filed: 06/02/20 22:43> Medical History Achilles tendinitis, left leg Acquired hypothyroidism (01/16/12) Anxiety Attention deficit hyperactivity disorder, 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 CAD (coronary artery disease) (04/16/18) Constipation due to slow transit Coronary atherosclerosis of [place] coronary vessel (12/06/13) Diverticulitis GERD without esophagitis (04/23/18) Hypokalemia (10/09/18) Impacted cerumen Insomnia Lobular carcinoma of breast, stage 1 Lymphedema of left lower extremity Major depressive disorder menarche 14 [id number] Migraine Headaches Mixed hyperlipidemia (12/06/13) Moderate recurrent major depression Obesity Obstructive sleep apnea (adult) (pediatric) (12/06/13) Obstructive sleep apnea syndrome Plantar fasciitis, left (10/13/18) Reactive depressive psychosis Rosacea Vitamin D deficiency Surgical History Biopsy of breast Cholecystectomy History of - surgery ( 11/2013) History of - surgery History of - surgery History of - surgery History of - surgery History of colonoscopy (08/11/14) History of hysterectomy History of sinus surgery Mastectomy, bilateral ( 11/2013) Status post tubal ligation Family History Mother No p roblems noted. Father Diabetes Congestive heart failure, Onset Age: 82 Hypertension AUNT No problems noted. UNCLES No problems noted. UNCLES No problems noted. Social History (Updated 03/04/19 @ 08:45 by Marie Davison) Does the Patient have a Healthcare Proxy: No Does Patient have a DNR?: No Does Patient have a Living Will?: No Does the Patient have a MOLST?: No Advance Directives on File or in chart?: No adopted: No household members: spouse housing: house lives independently: Yes highest education level completed: high school graduate service: No current occupational status: retired Hx Recent Travel (where): No well-balanced diet: daily caffeine: Yes high-fat food intake: 0-1 times daily daily servings fruits/ve-4 daily servings of milk/calcium: 2-4 eating out: 1-3 times/week Smoking Status: Never smoker alcohol intake: never substance use type: does not use rodney/denominational: Voodoo special rodney needs: Yes seatbelt use: always drive intox or ride w/ intox frontload driver: No water heater temp set < 120 deg: Yes working smoke detector in home: Yes fire extinguisher in home: Yes carbon monox detector in home: Yes firearms in home: Yes firearms unloaded and locked: Yes do you feel safe at home: Yes victim of physical abuse: No victim of emotional abuse: No victim of sexual abuse: No would you like helpful sources: No ROS <AUDRA Oliva - Last Filed: 06/02/20 22:43> Review of Systems Constitutional: Denies fever and chills Eyes: Denies vision change and floaters ENT: Denies mouth pain, nasal pain, post nasal drip, epistaxis, throat swelling and hoarseness Respiratory: Denies cough, orthopnea and SOB Cardiovascular: Reports light headedness; Denies chest pain, palpitations and syncope Gastrointestinal: Reports No Symptoms/Complaints; Denies nausea, vomiting, abdominal pain, diarrhea and constipation Genitourinary-Female: Denies dysuria, frequency and retention Musculoskeletal: Reports other (right leg swelling, reddness and tenderness); Denies neck pain, shoulder pain and back pain Skin/Breasts: Denies hives and pruritus Neurologic: Denies weakness, numbness and seizures Psychiatric: Reports No Symptoms/Complaints; Denies anxiety, visual hallucinations, suicidal thoughts, homicidal thoughts, hopelessness and helplessness Endocrine: Reports No Symptoms/Complaints; Denies Intolerance to cold, Intolerance to heat, Polydipsia and Polyuria Hematological/Lymphatic: Reports No Symptoms/Complaints; Denies easy bleeding and easy bruising Allergic/Immunologic: Reports No Symptoms/Complaints; Denies rash and hives Physical Exam <AUDRA Oliva - Last Filed: 06/02/20 22:43> General Limitations: no limitations General appearance: alert Head Head exam: Present atraumatic Eye Eye exam: Present PERRL and EOMI ENT ENT exam: Present mucous membranes moist Neck Neck exam: Present normal inspection and full ROM Respiratory Respiratory exam: Present normal lung sounds bilaterally; Absent respiratory distress, wheezes, rales and rhonchi Cardiovascular Cardiovascular Exam: Present regular rate and normal rhythm GI/Abdominal GI/Abdominal exam: Present Abd soft, bowel sounds present all quadrents; Absent tenderness, guarding, rebound and rigid Extremities Exam Extremities exam: Present other (right leg edema, erythema, tenderness. left leg edema (she describes it as her usual lymphoedema)) Back Exam Back exam: Present normal inspection and full ROM Neurological Exam Neurological exam: Present alert, oriented X3 and CN II- XII intact; Absent motor sensory deficit Psychiatric Psychiatric exam: Present normal affect and normal mood Skin Skin exam: Present warm, dry and intact Vital Signs Vital Signs: Vital Signs 06/02/20 20:50 Temperature 98.8 F Pulse Rate 80 Respiratory Rate 20 Blood Pressure 143/75 O2 Sat by Pulse Oximetry 97 <Alfie Snyder MD - Last Filed: 06/02/20 22:50> Vital Signs Vital Signs: Vital Signs 06/02/20 20:50 Temperature 98.8 F Pulse Rate 80 Respiratory Rate 20 Blood Pressure 143/75 O2 Sat by Pulse Oximetry 97 MDM (comprehensive) <AUDRA Oliva - Last Filed: 06/02/20 22:43> Medical Decision Making Free Text/Narative:: I discussed the case with Dr. Snyder who also saw the patient. decisions are agreed upon. As the patient's labs from yesterday are all negative for leucocytosis, DVT, and as no fever at thistime also, and no SOB. The patient will be given both Bactrim and Keflex(dose in the ER, then coursefor ten days. She is advised to follow up with her PCP and come back if her condition deteriorates, developed fever, SOB or any medical emergency. Working Diagnosis: Cellulitis of the right lower leg <Alfie Snyder MD - Last Filed: 06/02/20 22:50> Medical Decision Making Free Text/Narative:: I discussed the patient with the physician bankruptcy assistant and examined the patient. Patient is here for 1 day history of right foot and leg erythema, pain and swelling. Neurovascular intact in the right lower extremity. She appears to have mild to moderate cellulitis of the right foot and right lower leg. She has no fever. Her WBC count was normal yesterday. We will treat herwith Bactrim and Keflex for 10 days. I discussed with the patient that she should return to the emergency department if she has fever more than 101 F or feels sick. She understands Plan <AUDRA Oliva - Last Filed: 06/02/20 22:43> Plan Plan of care: Pain control discussed with patient, Activity limitations discussed with patient/family, Follow up appointments discussed, Plan of care discussed with patient and or family,Patient encouraged to ask questions about plan, Patient agrees with plan of care, Teach back used with patient/caregivers to build capacity and Person receiving instructions verbalizes understandingof plan Discharge Plan Admission/Discharge Dx Primary DC Diagnosis: Cellulitis of the right lower leg ED Provider: Anita Alan ED Status: Discharged Time Seen by Provider: 06/02/20 21:07 Triaged At: 06/02/20 20:50 Condition Condition: Stable Discharge Detail Disposition: Home, Self-Care Med Rec New Prescriptions: New sulfamethoxazole-trimethoprim [Bactrim DS] 800-160 mg tablet 1 tab PO Q12HR Qty: 20 RF: 0 cephalexin [Keflex] 500 mg capsule 500 mg PO QID Qty: 40 RF: 0 lactobacillus combination no.4 3 billion cell capsule 3,000 mmu cells PO BID Qty: 14 RF: 0 No Action venlafaxine 75 mg capsule,extended release 24hr 75 mg PO BID RF: 0 letrozole 2.5 MG tablet 2.5 mg PO DAILY RF: 0 cholecalciferol (vitamin D3) 2,000 UNIT tablet 2,000 unit PO DAILY Qty: 30 RF: 0 famotidine 20 mg tablet 20 mg PO BID Qty: 180 RF: 1 omeprazole 40 mg capsule,delayed release(DR/EC) 40 mg PO QDAY Qty: 90 RF: 1 simvastatin 10 mg tablet 10 mg PO DAILY Qty: 90 RF: 1 Mirvaso 0.33 % gel 1 applic TOP QDAY RF: 0 clonidine HCl 0.1 mg tablet 0.1 mg PO HS Qty: 90 RF: 1 levothyroxine [Synthroid] 75 mcg tablet 75 mcg PO QDAY Qty: 90 RF: 1 Discharge Education Printouts: Cellulitis (ED) Medications Medication reconciliation performed by provider at discharge: Yes Follow Up Care/Instructions Diet/Activity/Wound Care..: As we discussed you will be discharged on two antibiotics: Bactrim DS every 12 hours, and Keflex every 6 hours. Both for ten days. You also have Lactobacillus every 12 hours to protect your colon from the antibiotic this is for 14 days. You can use Tylenol every 6 hours for the pain as needed. Make sure to keep your right leg elevated above the level of your heart when you are sitting or lying down. Follow up with your family physician this Friday. Come back to the ER if you develop shortness of breath, fever, chest pain, deterioration of your condition, any medical emergency. *Discharge Patient* Discharge Orders: Discharge Order (Routine); Ordered 06/02/20 Ordered By: Anita Latham Discharge Date/Time: 06/02/20 22:47 Report Signers: <Electronically signed by Anita ZHU> Anita ZHU 06/02/20 2243 Anita Alan SIGNATURE DA Report Cosigners: <<Signature on File>> Alfie Snyder MD 06/02/202249 <Electronically signed by Alfie Snyder MD> Alfie Snyder MD 06/02/202249 D: ALBIB 06/02/202140 T: ALBIB 06/02/202140 CC: Verónica Leung Name Value Range Interpretation Code Description Data Alyssa rce(s) Supporting Document(s) ID Date Data Source [id number] 06/01/2020 10:47:00 AM EDT [facility] [address] [place], [place] [id number] [phone] NAME SEX PT STATUS ACCOUNT NUMBER NATO STYLES REG REF [id number] ORDERING PHYSICIAN LOCATION MEDICAL RECORD NO. Verónica Leung [id number] ATTENDING PHYSICIAN DATE OF DATE OF EXAM/TIME Verónica Leung RPA 1950 06/01/20 / 1023 TYPE / EXAM US VENOUS LEG RIGHT REASON FOR EXAM RT LE PAIN/SWELLING, R/O DVT COMPARISON: None FINDINGS: Normal compressibility and augmentation in the deep venous systems of the right leg from the commonfemoral vein through the popliteal vein with no DVT and no signs of a Jaimes's cyst. IMPRESSION: Unremarkable right lower extremity deep venous ultrasound with duplex and color flow Doppler analysis Reported By Delvin August MD on 06/01/201046 Signed By Delvin August MD on 06/01/20 104 Date Time CC: Delvin August MD; Verónica Leung Techn: TABSA Trans Dt/Tm: Trans by: DT Prt Dt/Tm: : Total DLP = 0.00 mGy-cm : Total Radiation Dose = 0.0000 mSv Lifetime Dose: 0 mSv Name Value Range Interpretation Code Description Data Alyssa rce(s) Supporting Document(s) ID Date Data Source [id number] 06/01/2020 09:45:00 AM EDT [facility] Name Value Range Interpretation Code Description Data Alyssa rce(s) Supporting Document(s) Leukocytes [#/volume] in Blood by Automated count 4.5 10*3/uL 4.45-10 .71 N [facility] Erythrocytes [#/volume] in Blood by Automated count 4.16 10*6/uL 4.20-5.40 Below low normal [facility] Hemoglobin [Moles/volume] in Blood 12.1 g/dL 10.7-15.4 N [facility] Hematocrit [Volume Fraction] of Blood by Automated count 37.2 % 3 7-47 N [facility] Erythrocyte mean corpuscular volume [Ent itic volume] in Cord blood by Automated count 89.4 fL 80-96 N [facility] Erythrocyte mean corpuscular hemoglobin [Entitic mass] by Automated count 29.1 pg 27-31 N [facility] Erythrocyte mean corpuscular hemoglobin concentration [Mass/volume] in Cord blood 32.5 g/dL 33-37 Below low normal [facility] Erythrocyte distribution width [Entitic volume] by Automated count 14 % 11-15 N [facility] Platelets [#/volume] in Blood by Automated count 362 10*3/uL 130-472 N [facility] Platelet mean volume [Entitic volume] in Blood 9.0 fL 9.1-13. 1 Below low normal [facility] Neutrophils/100 leukocytes in Blood by Automated count 51.3 % 41- 77 N [facility] Neutrophils [#/volume] in Blood by Automated count 2.3 U 1.7-7.6 N [facility] Lymphocytes/100 leukocytes in Blood by Automated count 31.5 % 14- 46 N [facility] Lymphocytes [#/volume] in Blood by Automated count 1.4 U 0.6-4.6 N [facility] Monocytes/100 leukocytes in Blood by Automated count 13.2 % 4-12 Above high normal [facility] Monocytes [#/volume] in Blood by Automated count 0.6 U 0.2-1.2 N [facility] Eosinophils/100 leukocytes in Blood by Automated count 2.9 % 0-7 N [facility] Eosinophils [#/volume] in Blood by Automated count 0.1 U 0.0-0.5 N [facility] Basophils/100 leukocytes in Blood by Automated count 0.9 % 0.4-1 .3 N [facility] Basophils [#/volume] in Blood by Automated count 0.0 U 0.0-0.2 N [facility] NUCLEATED RED BLOOD CELL 0 % [facility] NUCLEATED RED BLOOD CELL# 0 U [facility] Immature granulocytes [Presence] in Blood by Automated count 0-2 N [facility] Immature granulocytes [#/volume] in Blood by Automated count 0.0 U 0-0.1 N [facility] Manual Differential panel - Blood NO [facility] ID Date Data Source [id number] 06/01/2020 09:56:00 AM EDT [facility] Name Value Range Interpretation Code Description Data Alyssa rce(s) Supporting Document(s) Fibrin D-dimer [Units/volume] in Platelet poor plasma 0.41 mg/L 0.0- 0.50 [facility] @ Has QC been run for this test today?PL EASE NOTE: THIS TEST WAS PERFORMED USING A PARTICLE-ENHANCED, IMMUNOTURBIDIMETRIC ASSAY AND HAS A SINGLE,CLINICALLY DERIVED CUTOFF OF 0.50 MG/L. ID Date Data Source [id number] 06/01/2020 10:15:00 AM EDT [facility] Name Value Range Interpretation Code Description Data Alyssa rce(s) Supporting Document(s) Urea nitrogen [Mass/volume] in Serum or Plasma 17 mg/dL 9-23 N [facility] Sodium [Moles/volume] in Serum or Plasma 140 mmol/L 132-146 N [facility] Potassium [Moles/volume] in Serum or Plasma 4.7 mmol/L 3.5-5.5 N [facility] Chloride [Moles/volume] in Serum or Plasma 107 mmol/L 99-109 N [facility] Carbon dioxide, total [Moles/volume] in Serum or Plasma 29 mmol/L 20 -31 N [facility] Anion gap in Serum or Plasma 9 mmol/L 8-16 N [facility] Glucose [Mass/volume] in Serum or Plasma 100 mg/dL 74-106 N [facility] Creatinine 0.8 mg/dL 0.5-1.1 N [facility] Glomerular filtration rate/1.73 sq M.pre dicted [Volume Rate/Area] in Serum or Plasma Greater Than 60 ABOVE 60 [facility] Alanine aminotransferase [Enzymatic acti vity/volume] in Serum or Plasma by With P-5'-P 24 U/L 10-49 N [facility] ital Aspartate aminotransferase [Enzymatic ac tivity/volume] in Serum or Plasma by With P-5'-P 21 U/L 0-33 N [facility] pital Alkaline phosphatase [Enzymatic activity/volume] in Serum or Plasma 117 U/L 45-129 N [facility] Calcium [Mass/volume] in Serum or Plasma 9.5 mg/dL 8.5-10.1 N [facility] Bilirubin.total [Mass/volume] in Serum or Plasma 0.3 mg/dL 0.3-1.2 N [facility] Albumin [Mass/volume] in Serum or Plasma by Bromocresol purple (BCP) dye binding method 3.5 g/dL 3.2-4.8 N [facility] ital Protein [Mass/volume] in Serum or Plasma 7.4 g/dL 5.7-8.2 [facility] ID Date Data Source [id number] 06/01/2020 08:06:00 AM EDT [facility] Patient Name: NATO STYLES : 1950 Sex: F Pt Unit #: [id number] Location:[facility] Provider: Visit Date/Time: 06/01/20 Primary Insurance: MEDICARE [employer] Secondary Insurance: AARP Intake Vital Signs 06/01/20 08:06 Current Height 5 ft 3.5 in Current Weight 208 lb Weight Measurement Method Standing Scale BMI 36.2 BP 120/80 Blood Pressure Location Lt brachial Position Sitting Respiration 18 Pulse 64 Pulse Strength Normal Pulse Source Pulse Oximeter Temp 98.2 F Temp Source Tympanic Pulse Oximetry (%) 97 Oxygen Delivery Method room air Intake Visit Reasons: right calf pain Nurse Note: PT has had right calf pain for 3 days She states it aches all the time but when she walks it is very painful. She states it is very warm to touch. She states it is slightly reddend as well. She was at camp and had a lot of bug bites. She is unsure if it is cellulitis kicking in againor a DVT. She did not have her stocking on the right leg while she was at camp. Crossword Puzzle Maker Required: No Accompanied by: Self / Same as Patient Is patient in pain?: Yes (Right calf) Pain scale (1-10): 5 Allergies bupropion [From WELLBUTRIN] Adverse Reaction (Intermediate, Verified 03/30/20 07:26) MAKES DEPRESSION WORSE Medications brimonidine 0.33% (Mirvaso) 1 applic topical QDAY cholecalciferol (vitamin D3) 2,000 units PO DAILY clonidine HCl 0.1 mg PO HS famotidine 20 mg PO BID letrozole 2.5 mg PO DAILY metronidazole 0.75% 1 applic topical BID omeprazole 40 mg PO QDAY simva statin 10 mg PO DAILY Synthroid (levothyroxine) 75 mcg PO QDAY NS venlafaxine ER 150 mg (2 x 75 mg) PO QAM HIV Testing Offer - ages 13-64 Requirement for HIV testing offer been met?: Patient reports past refusal SBIRT Annual Questionnaire Are you currently in recovery for alcohol or substance use?: No How many times in the past year have you had 4 or more drinks in a day?: None How many times in the past year have you used a recreational drug or used a prescription medication for nonmedical reasons?: None Do you need a note to return Do you need a note to return to daycare/school/sports/work: No Coronavirus Screening Screening Have you traveled outside of [facility] or [facility] in the last 14 days.: No Has patient experienced coronavirus symptoms: No [facility] Medical History (Updated 04/12/20 @ 07:41 by CORINNE Rider) Achilles tendinitis, left leg Acquired hypothyroidism (01/16/12) Anxiety Attention deficit hyperactivity disorder, 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 CAD (coronary artery disease) (04/16/18) Constipation due to slow transit Coronary atherosclerosis of [place] coronary vessel (12/06/13) Diverticulitis GERD without esophagitis (04/23/18) Hypokalemia (10/09/18) Impacted cerumen Insomnia Lobular carcinoma of breast, stage 1 Lymphedema of left lower extremity Major depressive disorder menarche 14 [id number] Migraine Headaches Mixed hyperlipidemia (12/06/13) Moderate recurrent major depression Obesity Obstructive sleep apnea (adult) (pediatric) (12/06/13) Obstructive sleep apnea syndrome Plantar fasciitis, left (10/13/18) Reactive depressive psychosis Rosacea Vitamin D deficiency Surgical History (Updated 03/30/19 @ 11:52 by [email or web address] [place]) Biopsy of breast Cholecystectomy History of - surgery ( 11/2013) History of - surgery History of - surgery History of - surgery History of - surgery History of colonoscopy (08/11/14) History of hysterectomy History of sinus surgery Mastectomy, bilateral ( 11/2013) Status post tubal ligation Family History Mother No problems noted. Father Diabetes Congestive heart failure, Onset Age: 82 Hypertension AUNT No problems noted. UNCLES No problems noted. UNCLES No problems noted. Social History (Updated 03/04/19 @ 08:45 by Marie Davison) Does the Patient have a Healthcare Proxy: No Does Patient have a DNR?: No Does Patient have a Living Will?: No Does the Patient have a MOLST?: No Advance Directives on File or in chart?: No adopted: No household members: spouse housing: house lives independently: Yes highest education level completed: high school graduate service: No current occupational status: retired Hx Recent Travel (where): No well-balanced diet: daily caffeine: Yes high-fat food intake: 0-1 times daily daily servings fruits/ve-4 daily servings of milk/calcium: 2-4 eating out: 1-3 times/week alcohol intake: never substance use type: does not use rodney/denominational: Voodoo special rodney needs: Yes seatbelt use: always drive intox or ride w/ intox frontload driver: No water heater temp set < 120 deg: Yes working smoke detector in home: Yes fire extinguisher in home: Yes carbon monox detector in home: Yes firearms in home: Yes firearms unloaded and locked: Yes do you feel safe at home: Yes victim of physical abuse: No victim of emotional abuse: No victim of sexual abuse: No would you like helpful sources: No HPI Additional HPI HPI Details: 70yo female with PMH depression, hypothyroidism, hx breast CA, GERD, IBS, LINDSEY, CAD here with complaints RT calf pain. Gerri states 3d ago started with soreness back of the calf. Yesterday noticed redness/swelling/warmth. Just got back from camping and did get a lot of bug bites but did not get any on the back of the leg. Did have cellulitis previously in RT LE 5-6yrs ago. Has not been elevating LE. Admits she was not wearing her stockings when she was camping - has to wear on the LT LE d/t lymphedema. No hx DVT. Did have phlebitis previously but does not remember which leg. Yesterday took sunny lindseys for her arm, saw the chiropractor Advised yesterday to go to the ER but did not want to go Review of Systems Const Denies chills, Reports fatigue, Denies fever(s) and Denies poor appetite Card Denies chest pain, Denies syncope, Denies leg edema (NO INCREASE IN GENERAL SWELLING), Denies palpitations, Denies dyspnea on exertion, Denies orthopnea and Denies paroxysmal nocturnal dyspnea Resp Denies dyspnea on exertion GI Denies nausea and Denies vomiting Neuro Denies syncope Endo Reports fatigue and Denies palpitations Exam Const General: cooperative, healthy appearing, comfortable, no acute distress, well developed and well groomed Nutritional Appearance: obese Eyes Conjunctivae: conjunctivae normal EOM: EOM intact bilaterally Neck Neck: no lymphadenopathy Carotids: no bruits Resp Effort Inspection: normal respiratory effort Auscultation: clear to auscultation bilaterally, no crackles, lung sounds not diminished, no rhonchiand no wheezes Cardio Rhythm: regular rhythm Heart Sounds: S1 normal and S2 normal Skin Rashes: no rashes Neuro Cranial Nerves: CN's II-XII intact bilaterally Extrem Other: RT POSTERIOR LE - SCATTERED ERYTHEMATOUS AREAS NOTED, SLIGHTLY WARM, TENDER, (+) HOMANS SIGN;POSTERIOR TIBIALIS AND DORSALIS PEDIS EQUAL BILAT; NO OBVIOUS CELLULITIS NOTED. Assessment Plan Assessment Plan (1) Pain and swelling of right lower extremity: Code(s): M79.604 - Pain in right leg; M79.89 - Other specified soft tissue disorders Plan - CORINNE Rider: Stat u/s RT LE to evaluate for DVT. Labs ordered. Will call with results. Discussed if DVT, concern for PE and need for CT chest. If negative - start antibiotics for cellulitis. Orders: Orders: US VENOUS LEG RIGHT Today CMP Today D-DIMER Today CBC W AUTO DIFF Today Electronically Signed By: <Electronically signed by Verónica Muñoz> Date/Time Signed: 06/01/20917 Name Value Range Interpretation Code Description Data Alyssa rce(s) Supporting Document(s) Procedure Social History Code Duration Value Status Description Data Source(s ) Smoking 06/25/2021 12:00:00 AM EDT Never Smoked A Pipe complet ed Never Smoked A Pipe [facility] ([facility]) 12/20/2020 09:18:00 AM EDT No completed No [facility] 12/20/2020 09:18:00 AM EDT Never smoker completed Never s [facility] Smoking 12/20/2020 09:18:00 AM EDT Never smoker completed Never [facility] 12/12/2020 11:23:55 AM EST Never smoker completed Never [facility] 12/12/2020 11:23:55 AM EST Never smoker completed Never [facility] 12/12/2020 11:23:55 AM EST Never smoker completed Never [facility] 12/12/2020 11:23:55 AM EST Never smoker completed Never [facility] 12/12/2020 11:23:55 AM EST Never smoker completed Never [facility] 12/12/2020 11:23:55 AM EST Never smoker completed Never [facility] Smoking 12/12/2020 11:23:00 AM EST Never smoker completed Never [facility] Smoking 12/12/2020 10:23:00 AM EST Never smoker completed Never [facility] Smoking 12/12/2020 10:23:00 AM EST Never smoker completed Never [facility] Smoking 12/12/2020 10:23:00 AM EST Never smoker completed Never [facility] Smoking 12/12/2020 10:23:00 AM EST Never smoker completed Never [facility] Smoking 12/01/2020 12:00:00 AM EST Patient has never smoked co mpleted Patient has never smoked [facility] ([facility]) Smoking 06/02/2020 10:55:00 PM EDT Never smoker completed Never s [facility] Smoking 06/02/2020 10:55:00 PM EDT Never smoker completed Never s [facility] Smoking 06/02/2020 10:55:00 PM EDT Never smoker completed Never s [facility] Smoking 06/02/2020 10:55:00 PM EDT Never smoker completed Never s [facility] Smoking 06/02/2020 10:55:00 PM EDT Never smoker completed Never s [facility] Smoking 06/02/2020 10:55:00 PM EDT Never smoker completed Never s [facility] 06/02/2020 09:55:10 PM EDT No completed No [facility] 06/02/2020 09:55:10 PM EDT Yes completed Yes [facility] 06/02/2020 09:55:10 PM EDT No completed No [facility] 06/02/2020 09:55:10 PM EDT Yes completed Yes [facility] 06/02/2020 09:55:10 PM EDT No completed No [facility] 06/02/2020 09:55:10 PM EDT Yes completed Yes [facility] 06/02/2020 09:55:10 PM EDT No completed No [facility] 06/02/2020 09:55:10 PM EDT Yes completed Yes [facility] 06/02/2020 09:55:10 PM EDT No completed No [facility] 06/02/2020 09:55:10 PM EDT Yes completed Yes [facility] 06/02/2020 09:55:10 PM EDT Yes completed Yes [facility] 06/02/2020 09:55:10 PM EDT No completed No [facility] 06/02/2020 09:55:10 PM EDT Yes completed Yes [facility] 06/02/2020 09:55:10 PM EDT No completed No [facility] 06/02/2020 09:55:10 PM EDT Yes completed Yes [facility] 06/02/2020 09:55:10 PM EDT Never smoker completed Never s [facility] 06/02/2020 09:55:10 PM EDT No completed No [facility] 06/02/2020 09:55:10 PM EDT Yes completed Yes [facility] 06/02/2020 09:55:10 PM EDT Never smoker completed Never s [facility] 06/02/2020 09:55:10 PM EDT No completed No [facility] 06/02/2020 09:55:10 PM EDT Yes completed Yes [facility] 06/02/2020 09:55:10 PM EDT Never smoker completed Never s [facility] 06/02/2020 09:55:10 PM EDT No completed No [facility] 06/02/2020 09:55:10 PM EDT Yes completed Yes [facility] 06/02/2020 09:55:10 PM EDT Never smoker completed Never s [facility] 06/02/2020 09:55:10 PM EDT No completed No [facility] 06/02/2020 09:55:10 PM EDT Yes completed Yes [facility] 06/02/2020 09:55:10 PM EDT Never smoker completed Never s [facility] 06/02/2020 09:55:10 PM EDT No completed No [facility] 06/02/2020 09:55:10 PM EDT Yes completed Yes [facility] 06/02/2020 09:55:10 PM EDT Never smoker completed Never s [facility] 06/02/2020 09:55:10 PM EDT No completed No [facility] 06/02/2020 09:55:10 PM EDT Yes completed Yes [facility] 06/02/2020 09:55:10 PM EDT Never smoker completed Never s [facility] 06/02/2020 09:55:10 PM EDT Never smoker completed Never s [facility] 06/02/2020 09:55:10 PM EDT No completed No [facility] 06/02/2020 09:55:10 PM EDT Yes completed Yes [facility] Smoking 06/02/2020 09:55:00 PM EDT Never smoker completed Never s [facility] Smoking 06/02/2020 09:55:00 PM EDT Never smoker completed Never s [facility] Vital Signs ID Date Data Source UNK Name Value Range Interpretation Code Description Data Source(s) Systolic blood pressure 126 mm[Hg] 126 mm[Hg] [facility] Diastolic blood pressure 78 mm[Hg] 78 mm[Hg] [facility] Body height 162.6 cm 162.6 cm [facility] Body weight 100.336 kg 100.336 kg [facility] Body mass index (BMI) [Ratio] 37.97 kg/m2 37.97 kg/m2 [facility] [place] body weight 125 [lb_av] 125 [lb_av] [facility] ([facility]) Body weight 97.978 kg 97.978 [facility] Body surface area Derived from formula 2.04 m2 2.04 m2 [facility] ([facility]) Systolic blood pressure 152 mm[Hg] 152 mm[Hg] [facility] ([facility]) Diastolic blood pressure 84 mm[Hg] 84 mm[Hg] [facility] ([facility]) Body height 65 [in_i] 65 [in_i] [facility] ([facility]) 5'5" Body weight 216.00 [lb_av] 216.00 [lb_av] [facility] ([facility]) Body mass index (BMI) [Ratio] 35.9 kg/m2 35.9 k g/m2 [facility] ([facility]) Systolic blood pressure 130 mm[Hg] 130 mm[Hg] [facility] Diastolic blood pressure 76 mm[Hg] 76 mm[Hg] [facility] Body height 162.6 cm 162.6 cm [facility] Body weight 97.796 kg 97.796 kg [facility] Body mass index (BMI) [Ratio] 37.01 kg/m2 37.01 kg/m2 [facility] Body weight 96.435 kg 96.435 kg [facility] Systolic blood pressure 124 mm[Hg] 124 mm[Hg] [facility] Body mass index (BMI) [Ratio] 36.49 kg/m2 36.49 kg/m2 [facility] Diastolic blood pressure 68 mm[Hg] 68 mm[Hg] [facility] Body height 162.6 cm 162.6 cm [facility] Systolic blood pressure 140 mm[Hg] 140 mm[Hg] [facility] ([facility]) Diastolic blood pressure 80 mm[Hg] 80 mm[Hg] [facility] ([facility]) Heart rate 66 /min 66 /min [facility] Body height 64 [in_i] 64 [in_i] [facility] 5'4" Body weight 215.00 [lb_av] 215.00 [lb_av] [facility] ([facility]) Body mass index (BMI) [Ratio] 36.9 kg/m2 36.9 k g/m2 [facility] ([facility]) Body height 63.5 [in_i] 63.5 [in_i] [facility] ([facility]) 5'3.50" Body weight 205.00 [lb_av] 205.00 [lb_av] [facility] ([facility]) Body weight 92.988 kg 92.988 kg [facility] ([facility]) Body mass index (BMI) [Ratio] 35.7 kg/m2 35.7 k g/m2 [facility] ([facility]) Body surface area Derived from formula 1.97 m2 1.97 m2 [facility] ([facility]) Patient Treatment Plan of Care Planned Activity Planned Date Details Description Data Source (s) Levothyroxine Sodium 0.05 MG Oral Tablet 02/19/2021 12:00:00 AM PERFECTOT [facility] Levothyroxine Sodium 0.088 MG Oral Tablet 10/12/2018 12:00:00 AM ES T [facility]
[2021-07-31] MEDS ORDERED: LIDOCAINE 2% 100MG/5ML SDV (FOR ANES.) As Ordered ONE (12:29)
[2021-07-31] MEDS ORDERED: propofoL 200 MG/20 ML VIAL As Ordered ONE ×2 (12:29→13:23)
--- NOTE | 2021-07-31 13:44 | ROOR ---
Patient Name: Lina Morejon Procedure Date: 07/31/2021 1:08 PM Date of : 1950 Age: 71 Room: [facility] Gender: Female Note Status: Finalized Procedure: Colonoscopy Indications: Generalized abdominal pain, Constipation Providers: Ignacio Gonzáles MD Referring MD: AUDRA Rider Requesting Provider: Medicines: Monitored Anesthesia Care Complications: No immediate complications. Procedure: Pre-Anesthesia Assessment: - The heart rate, respiratory rate, oxygen saturations, blood pressure, adequacy of pulmonary ventilation, and response to care were monitored throughout the procedure. The Colonoscope was introduced through the anus and advanced to the cecum, identified by appendiceal orifice and ileocecal valve. The colonoscopy was performed without difficulty. The patient tolerated the procedure well. The quality of the bowel preparation was fair. Findings: The perianal and digital rectal examinations were normal. Four sessile polyps were found in the sigmoid colon and ascending colon. The polyps were 5 to 8 mm in size. These polyps were removed with a cold snare. Resection and retrieval were complete. Multiple small and large-mouthed diverticula were found in the sigmoid colon. There was evidence of diverticular spasm. Internal hemorrhoids were found during retroflexion. The hemorrhoids were moderate. Impression: - Preparation of the colon was fair. - Four 5 to 8 mm polyps in the sigmoid colon and in the ascending colon, removed with a cold snare. Resected and retrieved. - Moderate diverticulosis in the sigmoid colon. There was evidence of diverticular spasm. - Internal hemorrhoids. Recommendation: - Repeat colonoscopy in 3 years for surveillance. - Telephone endoscopist for pathology results in 2 weeks. Procedure Code(s): --- Professional --- 17590, Colonoscopy, flexible; with removal of tumor(s), polyp(s), or other lesion(s) by snare technique Diagnosis Code(s): --- Professional --- K57.30, Diverticulosis of large intestine without perforation or abscess without bleeding K59.00, Constipation, unspecified R10.84, Generalized abdominal pain K63.5, Polyp of colon K64.8, Other hemorrhoids CPT copyright 2019 [employer]. All rights reserved. The codes documented in this report are preliminary and upon wood and hardware outfitter review may be revised to meet current compliance requirements. Ignacio Gonzáles MD Ignacio Gonzáles MD 07/31/2021 1:44:13 PM Electronically signed by Ignacio Gonzáles MD Number of Addenda: 0 Note Initiated On: 07/31/2021 1:08 PM Estimated Blood Loss: Estimated blood loss: none.
[2021-07-31 14:00] VITALS: BP 167/79
== END 2021-07-31 14:49 | disposition home or self-care (01) ==
LOC: M OPP 11:11
PROVIDERS: ATTEND Internal Medicine Gastroenterology
DX: K63.5 Polyp of colon (principal); K57.30 Diverticulosis of large intestine without perforation or abscess without bleeding; K64.8 Other hemorrhoids; Z80.0 Family history of malignant neoplasm of digestive organs; K59.00 Constipation, unspecified; R10.84 Generalized abdominal pain; Z79.899 Other long term (current) drug therapy; Z85.3 Personal history of malignant neoplasm of breast

== ENCOUNTER → 2022-12-05 | Outpatient (CLI) | payer MEDICARE ==
[~2022-12-05] MED LIST changes: +AMLO1TAB24 PO; -D31000TA2 PO; +DOCU-153 PO; +FERR325T81 PO; +LEVO50TA5 PO; +LOSA50TA28 PO; +METF-838 PO; -NS 1,000 ML IV ONE; +ROSU10TA6 PO; +TRUL10IN SC; +VITA100093 PO
== END ==
LOC: M LABSMTC 11:18
PROVIDERS: ATTEND Anesthesiology
DX: Z01.812 Encounter for preprocedural laboratory examination (principal)

== ENCOUNTER 2022-12-10 10:17 | Day surgery (SDC) | payer MEDICARE ==
[~2022-12-10] VITALS: Ht 165.1 cm; Wt 94.3 kg
[~2022-12-10 10:17] MED LIST changes: +NS 1,000 ML IV ONE
[2022-12-10] MEDS ORDERED: propofoL 500 MG/50 ML VIAL As Ordered ONE (10:38)
[2022-12-10] MEDS ORDERED: LIDOCAINE 2% 100MG/5ML SDV (FOR ANES.) As Ordered ONE (10:39)
[2022-12-10] MEDS ORDERED: fentaNYL 100 MCG/2 ML INJECTION As Ordered ONE (10:42)
[2022-12-10] MEDS ORDERED: ONDANSETRON 4MG 2ML VIAL As Ordered ONE (11:54)
[2022-12-10 13:09] VITALS: BP 107/55
== END 2022-12-10 13:10 | disposition home or self-care (01) ==
LOC: M OPP 10:17
PROVIDERS: ATTEND Internal Medicine Gastroenterology
DX: D12.0 Benign neoplasm of cecum (principal); D12.3 Benign neoplasm of transverse colon; D12.5 Benign neoplasm of sigmoid colon; K57.30 Diverticulosis of large intestine without perforation or abscess without bleeding; K64.8 Other hemorrhoids; Z80.0 Family history of malignant neoplasm of digestive organs; D50.9 Iron deficiency anemia, unspecified; K44.9 Diaphragmatic hernia without obstruction or gangrene; K31.7 Polyp of stomach and duodenum; I10 Essential (primary) hypertension; E78.00 Pure hypercholesterolemia, unspecified; E11.9 Type 2 diabetes mellitus without complications; E06.3 Autoimmune thyroiditis; K76.0 Fatty (change of) liver, not elsewhere classified; G47.33 Obstructive sleep apnea (adult) (pediatric); Z99.89 Dependence on other enabling machines and devices; Z79.02 Long term (current) use of antithrombotics/antiplatelets; Z79.84 Long term (current) use of oral hypoglycemic drugs; Z79.890 Hormone replacement therapy; Z79.899 Other long term (current) drug therapy; Z85.3 Personal history of malignant neoplasm of breast; Z92.21 Personal history of antineoplastic chemotherapy
CPT/HCPCS: 43239; 45385; 88305; J2405; J3010

== ENCOUNTER → 2025-01-27 | Day surgery (SDC) | payer MEDICARE ==
[~2025-01-27] VITALS: Ht 162.6 cm; Wt 76.4 kg
[~2025-01-27] MED LIST changes: -DOCU-153 PO; +LIDOCAINE 2% 100MG/5ML SDV (FOR ANES.) As Ordered ONE; +LIDOCAINE 5% OINT 30GM TUBE As Ordered ONE; -NS 1,000 ML IV ONE; -ROSU10TA6 PO; +ROSU10TA61 PO; +SEMA1PEN2 SQ; +STOO100C30 PO; +propofoL 200 MG/20 ML VIAL As Ordered ONE
[2025-01-27 09:20] VITALS: TEMP 98.4
[2025-01-27 09:44] VITALS: BP 120/64; O2SAT 99
== END | disposition home or self-care (01) ==
LOC: M OPP 07:29
PROVIDERS: ATTEND Internal Medicine Gastroenterology
DX: D12.3 Benign neoplasm of transverse colon (principal); K64.8 Other hemorrhoids; K57.30 Diverticulosis of large intestine without perforation or abscess without bleeding; Z80.0 Family history of malignant neoplasm of digestive organs; Z86.0100 Personal history of colon polyps, unspecified; G47.30 Sleep apnea, unspecified; Z79.84 Long term (current) use of oral hypoglycemic drugs; Z79.85 Long-term (current) use of injectable non-insulin antidiabetic drugs; Z79.899 Other long term (current) drug therapy